=== PATIENT | female | born 1965 | race Caucasian/White ===

== ENCOUNTER 2017-07-18 17:53 | Inpatient (IN) | payer BC ==
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
[2017-07-18] MEDS ORDERED: Sodium Chloride 0.9% 1,000 ML IV SCH ×2 (21:30→22:45)
[2017-07-18] MEDS ORDERED: Coagulation Factor VIIa Recombinant (per MCG) 2 MG Vial IVPUSH ONE ×3 (21:54→23:15)
[2017-07-18] MEDS ORDERED: oxyCODONE 5 MG Tab PO SCH (23:00)
[2017-07-18] MEDS ORDERED: Albuterol 90 MCG/6.7 GM Inhaler INH PRN (23:00)
[2017-07-19] MEDS: Sodium Chloride 0.9% 1,000 ML IV SCH ×2 (02:36→07:34)
[2017-07-19] MEDS ORDERED: traMADol 50 MG Tab PO PRN (07:57)
[2017-07-19] MEDS: Dextrose 5%-Lactated Ringers 1,000 ML IV SCH ×3 (09:59→22:52)
[2017-07-19] MEDS ORDERED: Lactated Ringers 1,000 ML IV SCH (11:00)
[2017-07-19] MEDS ORDERED: fentaNYL 12 MCG/HR Transdermal Patch TRDERM SCH (16:00)
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
[2017-07-19] MEDS: FENTANYL PATCH CHECK TOP SCH (21:27)
[2017-07-20] MEDS: oxyCODONE 5 MG Tab PO PRN ×4 (02:26→22:07)
[2017-07-20] MEDS: Dextrose 5%-Lactated Ringers 1,000 ML IV SCH (08:53)
[2017-07-20] MEDS: FENTANYL PATCH CHECK TOP SCH ×2 (08:58→20:06)
--- NOTE | 2017-07-20 09:33 | PCM.CONSN ---
- General Info Date of Service: 07/20/17 Functional Status: Reports: Pain Controlled, Tolerating Diet, Ambulating - Review of Systems General: Reports: Weakness. Denies: Fever, Chills Pulmonary: Reports: No Symptoms Cardiovascular: Reports: No Symptoms Gastrointestinal: Reports: No Symptoms Systems Review Comment:: Stable over the past 24 hours with no further evidence of active bleeding. She' s not had hematochezia since early yesterday afternoon. Hemoglobin has remained stable following transfusion of one unit of red blood cells yesterday. Vital signs are stable and she has remained afebrile. - Patient Data Vitals - Most Recent: Last Vital Signs Temp 98.1 F 07/20/17 09:19 Pulse 102 H 07/20/17 09:19 Resp 16 07/20/17 09:19 BP 97/54 L 07/20/17 09:19 Pulse Ox 94 L 07/20/17 09:19 Weight - Most Recent: 207 lb 7.28 oz I&O - Last 24 Hours: Intake & Output 07/19/17 07/20/17 07/20/17 22:59 06:59 14:59 Intake Total 1810 1223 0 Output Total 350 Balance 1460 1223 0 Lab Results Last 24 Hours: Laboratory Results - last 24 hr 07/18/17 07/19/17 07/19/17 Range/Units 22:40 11:05 11:05 WBC 8.3 (4.5-11.0) K/uL RBC 2.77 L (3.30-5.50) M/uL Hgb 8.4 L (12.0-15.0) g/dL Hct 26.9 L (36.0-48.0) % MCV 97 (80-98) fL MCH 30 (27-31) pg MCHC 31 L (32-36) % Plt Count 424 H (150-400) K/uL Neut % (Auto) 63 (36-66) % Lymph % (Auto) 23 L (24-44) % [place] % (Auto) 10 H (2-6) % Eos % (Auto) 1 L (2-4) % Baso % (Auto) 3 H (0-1) % Sodium 143 (140-148) mmol/L Potassium 3.7 (3.6-5.2) mmol/L Chloride 109 H (100-108) mmol/L Carbon Dioxide 24 (21-32) mmol/L Anion Gap 13.7 (5.0-14.0) mmol/L BUN 9 (7-18) mg/dL Creatinine 0.8 (0.6-1.0) mg/dL Est Cr Clr Drug Dosing 77.01 mL/min Estimated GFR (MDRD) > 60 (>60) Glucose 117 H (74-106) mg/dL Calcium 8.0 L (8.5-10.1) mg/dL Phosphorus (2.5-4.9) mg/dL Magnesium (1.8-2.4) mg/dL Total Bilirubin 0.4 (0.2-1.0) mg/dL AST 44 H (15-37) U/L ALT 33 (12-78) U/L Alkaline Phosphatase 361 H (46-116) U/L Total Protein 5.6 L (6.4-8.2) g/dL Albumin 2.3 L (3.4-5.0) g/dL Globulin 3.3 (2.3-3.5) g/dL Albumin/Globulin Ratio 0.7 L (1.2-2.2) Blood Type O POSITIVE Gel Antibody Screen Negative Crossmatch See Detail 07/19/17 07/19/17 07/19/17 Range/Units 11:05 16:27 23:00 WBC (4.5-11.0) K/uL RBC (3.30-5.50) M/uL Hgb 8.9 L 8.9 L (12.0-15.0) g/dL Hct 28.8 L (36.0-48.0) % MCV (80-98) fL MCH (27-31) pg MCHC (32-36) % Plt Count (150-400) K/uL Neut % (Auto) (36-66) % Lymph % (Auto) (24-44) % [place] % (Auto) (2-6) % Eos % (Auto) (2-4) % Baso % (Auto) (0-1) % Sodium (140-148) mmol/L Potassium (3.6-5.2) mmol/L Chloride (100-108) mmol/L Carbon Dioxide (21-32) mmol/L Anion Gap (5.0-14.0) mmol/L BUN (7-18) mg/dL Creatinine (0.6-1.0) mg/dL Est Cr Clr Drug Dosing mL/min Estimated GFR (MDRD) (>60) Glucose (74-106) mg/dL Calcium (8.5-10.1) mg/dL Phosphorus (2.5-4.9) mg/dL Magnesium 2.0 (1.8-2.4) mg/dL Total Bilirubin (0.2-1.0) mg/dL AST (15-37) U/L ALT (12-78) U/L Alkaline Phosphatase (46-116) U/L Total Protein (6.4-8.2) g/dL Albumin (3.4-5.0) g/dL Globulin (2.3-3.5) g/dL Albumin/Globulin Ratio (1.2-2.2) Blood Type Gel Antibody Screen Crossmatch 07/20/17 07/20/17 Range/Units 04:50 04:50 WBC 8.0 (4.5-11.0) K/uL RBC 2.91 L (3.30-5.50) M/uL Hgb 8.8 L (12.0-15.0) g/dL Hct 27.8 L (36.0-48.0) % MCV 96 (80-98) fL MCH 30 (27-31) pg MCHC 32 (32-36) % Plt Count 330 (150-400) K/uL Neut % (Auto) 59 (36-66) % Lymph % (Auto) 22 L (24-44) % [place] % (Auto) 13 H (2-6) % Eos % (Auto) 3 (2-4) % Baso % (Auto) 2 H (0-1) % Sodium 142 (140-148) mmol/L Potassium 3.7 (3.6-5.2) mmol/L Chloride 110 H (100-108) mmol/L Carbon Dioxide 27 (21-32) mmol/L Anion Gap 8.7 (5.0-14.0) mmol/L BUN 5 L (7-18) mg/dL Creatinine 0.8 (0.6-1.0) mg/dL Est Cr Clr Drug Dosing 77.43 mL/min Estimated GFR (MDRD) > 60 (>60) Glucose 110 H (74-106) mg/dL Calcium 8.1 L (8.5-10.1) mg/dL Phosphorus 3.7 (2.5-4.9) mg/dL Magnesium 1.8 (1.8-2.4) mg/dL Total Bilirubin 0.4 (0.2-1.0) mg/dL AST 54 H (15-37) U/L ALT 23 (12-78) U/L Alkaline Phosphatase 344 H (46-116) U/L Total Protein 5.5 L (6.4-8.2) g/dL Albumin 2.3 L (3.4-5.0) g/dL Globulin 3.2 (2.3-3.5) g/dL Albumin/Globulin Ratio 0.7 L (1.2-2.2) Blood Type Gel Antibody Screen Crossmatch Med Orders - Current: Current Medications Albuterol (Proventil Hfa) 0 puff INH Q4H PRN PRN Reason: SOB/WHEEZING Fentanyl (Duragesic) 12 mcg TRDERM Q72H [facility] Last Admin: 07/19/17 15:56 Dose: 12 mcg Hydromorphone HCl (Dilaudid) 0.5 mg IVPUSH Q2H PRN PRN Reason: Pain Fentanyl Patch Check 1 each TOP BID [facility] Last Admin: 07/20/17 08:58 Dose: Not Given Oxycodone HCl (Oxycodone) 10 mg PO Q6H PRN PRN Reason: Abdominal Pain Last Admin: 07/20/17 09:16 Dose: 10 mg Tramadol HCl (Ultram) 50 mg PO Q6H PRN PRN Reason: PAIN Last Admin: 07/19/17 15:49 Dose: 50 mg Discontinued Medications Factor VIIa (Recombinant) (Novoseven Rt) 2,000 mcg IVPUSH ONETIME ONE Stop: 07/18/17 21:55 Last Admin: 07/18/17 22:16 Dose: 1 mcg Factor VIIa (Recombinant) (Novoseven Rt) Confirm Administered Dose 2,000 mcg IVPUSH .STK-MED ONE Stop: 07/18/17 22:24 Factor VIIa (Recombinant) (Novoseven Rt) 2,000 mcg IVPUSH ONETIME ONE Stop: 07/18/17 23:16 Last Admin: 07/18/17 22:55 Dose: 2,000 mcg Sodium Chloride (Normal Saline) 1,000 mls @ 200 mls/hr IV ASDIRECTED ANGELLA Last Admin: 07/18/17 21:48 Dose: 200 mls/hr Sodium Chloride (Normal Saline) 1,000 mls @ 200 mls/hr IV ASDIRECTED ANGELLA Last Admin: 07/19/17 07:34 Dose: 200 mls/hr Dextrose/Lactated Ringer's (Dextrose 5%-Lactated Ringers) 1,000 mls @ 100 mls/ hr IV ASDIRECTED ANGELLA Last Admin: 07/20/17 08:53 Dose: 100 mls/hr Lactated Ringer's (Ringers, Lactated) 1,000 mls @ 500 mls/hr IV ASDIRECTED ANGELLA Stop: 07/19/17 13:01 Last Admin: 07/19/17 11:00 Dose: 500 mls/hr Oxycodone HCl (Oxycodone) 10 mg PO Q6H [facility] Last Admin: 07/18/17 23:24 Dose: Not Given - Exam General: Alert, Oriented, Cooperative, No Acute Distress Lungs: Clear to Auscultation, Normal Respiratory Effort Cardiovascular: Regular Rate, Regular Rhythm, No Murmurs GI/Abdominal Exam: Normal Bowel Sounds, Soft, Non-Tender, No Organomegaly, No Distention Extremities: Normal Inspection, Non-Tender, No Pedal Edema Consult PN Assessment/Plan Procedures: Procedures ASSAY THYROID STIM HORMONE (06/28/17) CT ABD & PELV W/CONTRAST (06/20/17) CT THORAX W/DYE (06/20/17) EMERGENCY DEPT VISIT (09/13/16) FREE ASSAY (FT-3) (06/28/17) ROUTINE VENIPUNCTURE (06/28/17) US EXAM ABDOM COMPLETE (06/15/17) Problem List Initiated/Reviewed/Updated: Yes My Orders Last 24 Hours: My Active Orders 07/19/17 15:39 HYDROmorphone [Dilaudid] 0.5 mg IVPUSH Q2H PRN 07/19/17 16:00 fentaNYL [Duragesic] 12 mcg TRDERM Q72H 07/19/17 21:00 Non-Formulary Medication [NF Drug] 1 each TOP BID 07/20/17 09:30 Convert IV to Saline Lock [OM.PC] Routine Plan: ASSESSMENT AND RECOMMENDATIONS ACUTE LOWER GI BLEED-likely secondary to area of polyp removal in the right colon. No further bleeding since yesterday afternoon -Serial hemoglobin levels -2 units of red blood cells on hold -Saline lock IV -Surgical follow-up per Dr. Colby WIDELY METASTATIC NEUROENDOCRINE TUMOR-in the process of evaluation, she currently has an appointment at the [facility] in [place] for mid-July. -Contact [facility] to see if she can be seen sooner than current appointment
--- NOTE | 2017-07-20 13:30 | PCM.SURGPN ---
- General Info Date of Service: 07/20/17 POD#: 0 Admission Diagnosis/Problem: Bleeding (Bloody diarrhea ) Functional Status: Reports: Tolerating Diet, Ambulating, Urinating - Review of Systems General: Reports: Fatigue HEENT: Reports: No Symptoms Pulmonary: Reports: No Symptoms Cardiovascular: Reports: No Symptoms Gastrointestinal: Reports: No Symptoms Genitourinary: Reports: No Symptoms Musculoskeletal: Reports: No Symptoms Skin: Reports: No Symptoms Neurological: Reports: No Symptoms Psychiatric: Reports: No Symptoms Systems Review Comment:: Nettie is feeling better today. She has not had any hematochezia since yesterday. She has not had a BM today. Urinating well. Per nursing she is a little lethargic today. Her hemoglobin has been stable since yesterday, however she will receive 1 unit of red blood cells today due to multiple upcoming blood tests for oncology. Per nursing she tolerated this well. - Patient Data Vitals - Most Recent: Last Vital Signs Temp 36.7 C 07/20/17 12:00 Pulse 103 H 07/20/17 12:00 Resp 16 07/20/17 12:00 BP 108/60 07/20/17 12:00 Pulse Ox 94 L 07/20/17 12:00 Weight - Most Recent: 94.1 kg I&O - Last 24 Hours: Intake & Output 07/19/17 07/20/17 07/20/17 22:59 06:59 14:59 Intake Total 1810 1223 0 Output Total 350 Balance 1460 1223 0 Lab Results Last 24 Hrs: Laboratory Results - last 24 hr 07/18/17 07/19/17 07/19/17 Range/Units 22:40 16:27 23:00 WBC (4.5-11.0) K/uL RBC (3.30-5.50) M/uL Hgb 8.9 L 8.9 L (12.0-15.0) g/dL Hct 28.8 L (36.0-48.0) % MCV (80-98) fL MCH (27-31) pg MCHC (32-36) % Plt Count (150-400) K/uL Neut % (Auto) (36-66) % Lymph % (Auto) (24-44) % [place] % (Auto) (2-6) % Eos % (Auto) (2-4) % Baso % (Auto) (0-1) % Sodium (140-148) mmol/L Potassium (3.6-5.2) mmol/L Chloride (100-108) mmol/L Carbon Dioxide (21-32) mmol/L Anion Gap (5.0-14.0) mmol/L BUN (7-18) mg/dL Creatinine (0.6-1.0) mg/dL Est Cr Clr Drug Dosing mL/min Estimated GFR (MDRD) (>60) Glucose (74-106) mg/dL Calcium (8.5-10.1) mg/dL Phosphorus (2.5-4.9) mg/dL Magnesium (1.8-2.4) mg/dL Total Bilirubin (0.2-1.0) mg/dL AST (15-37) U/L ALT (12-78) U/L Alkaline Phosphatase (46-116) U/L Total Protein (6.4-8.2) g/dL Albumin (3.4-5.0) g/dL Globulin (2.3-3.5) g/dL Albumin/Globulin Ratio (1.2-2.2) Blood Type O POSITIVE Gel Antibody Screen Negative Crossmatch See Detail 07/20/17 07/20/17 Range/Units 04:50 04:50 WBC 8.0 (4.5-11.0) K/uL RBC 2.91 L (3.30-5.50) M/uL Hgb 8.8 L (12.0-15.0) g/dL Hct 27.8 L (36.0-48.0) % MCV 96 (80-98) fL MCH 30 (27-31) pg MCHC 32 (32-36) % Plt Count 330 (150-400) K/uL Neut % (Auto) 59 (36-66) % Lymph % (Auto) 22 L (24-44) % [place] % (Auto) 13 H (2-6) % Eos % (Auto) 3 (2-4) % Baso % (Auto) 2 H (0-1) % Sodium 142 (140-148) mmol/L Potassium 3.7 (3.6-5.2) mmol/L Chloride 110 H (100-108) mmol/L Carbon Dioxide 27 (21-32) mmol/L Anion Gap 8.7 (5.0-14.0) mmol/L BUN 5 L (7-18) mg/dL Creatinine 0.8 (0.6-1.0) mg/dL Est Cr Clr Drug Dosing 77.43 mL/min Estimated GFR (MDRD) > 60 (>60) Glucose 110 H (74-106) mg/dL Calcium 8.1 L (8.5-10.1) mg/dL Phosphorus 3.7 (2.5-4.9) mg/dL Magnesium 1.8 (1.8-2.4) mg/dL Total Bilirubin 0.4 (0.2-1.0) mg/dL AST 54 H (15-37) U/L ALT 23 (12-78) U/L Alkaline Phosphatase 344 H (46-116) U/L Total Protein 5.5 L (6.4-8.2) g/dL Albumin 2.3 L (3.4-5.0) g/dL Globulin 3.2 (2.3-3.5) g/dL Albumin/Globulin Ratio 0.7 L (1.2-2.2) Blood Type Gel Antibody Screen Crossmatch Med Orders - Current: Current Medications Albuterol (Proventil Hfa) 0 puff INH Q4H PRN PRN Reason: SOB/WHEEZING Fentanyl (Duragesic) 12 mcg TRDERM Q72H [facility] Last Admin: 07/19/17 15:56 Dose: 12 mcg Hydromorphone HCl (Dilaudid) 0.5 mg IVPUSH Q2H PRN PRN Reason: Pain Fentanyl Patch Check 1 each TOP BID [facility] Last Admin: 07/20/17 08:58 Dose: Not Given Oxycodone HCl (Oxycodone) 10 mg PO Q6H PRN PRN Reason: Abdominal Pain Last Admin: 07/20/17 09:16 Dose: 10 mg Tramadol HCl (Ultram) 50 mg PO Q6H PRN PRN Reason: PAIN Last Admin: 07/19/17 15:49 Dose: 50 mg Discontinued Medications Factor VIIa (Recombinant) (Novoseven Rt) 2,000 mcg IVPUSH ONETIME ONE Stop: 07/18/17 21:55 Last Admin: 07/18/17 22:16 Dose: 1 mcg Factor VIIa (Recombinant) (Novoseven Rt) Confirm Administered Dose 2,000 mcg IVPUSH .STK-MED ONE Stop: 07/18/17 22:24 Factor VIIa (Recombinant) (Novoseven Rt) 2,000 mcg IVPUSH ONETIME ONE Stop: 07/18/17 23:16 Last Admin: 07/18/17 22:55 Dose: 2,000 mcg Sodium Chloride (Normal Saline) 1,000 mls @ 200 mls/hr IV ASDIRECTED [facility] Last Admin: 07/18/17 21:48 Dose: 200 mls/hr Sodium Chloride (Normal Saline) 1,000 mls @ 200 mls/hr IV ASDIRECTED [facility] Last Admin: 07/19/17 07:34 Dose: 200 mls/hr Dextrose/Lactated Ringer's (Dextrose 5%-Lactated Ringers) 1,000 mls @ 100 mls/ hr IV ASDIRECTED [facility] Last Admin: 07/20/17 08:53 Dose: 100 mls/hr Lactated Ringer's (Ringers, Lactated) 1,000 mls @ 500 mls/hr IV ASDIRECTED [facility] Stop: 07/19/17 13:01 Last Admin: 07/19/17 11:00 Dose: 500 mls/hr Oxycodone HCl (Oxycodone) 10 mg PO Q6H [facility] Last Admin: 07/18/17 23:24 Dose: Not Given - Exam General: Alert, Oriented, No Acute Distress, Lethargic Neck: Supple GI/Abdominal Exam: No Distention Extremities: Normal Inspection Psy/Mental Status: Alert - Problem List Review Problem List Initiated/Reviewed/Updated: Yes - My Orders Last 24 Hours: Active Orders 24 hr Category Date Time Status Low Residue [Low Fiber Diet] [DIET] Diet 07/20/17 Breakfast Active CBC W/O DIFF,HEMOGRAM [HEME] Routine Lab 07/21/17 05:00 Ordered COMPREHENSIVE METABOLIC PN,CMP [CHEM] Routine Lab 07/21/17 05:00 Ordered HCT [HEMATOCRIT] [HEME] Routine Lab 07/20/17 17:00 Ordered HEMOGLOBIN [HEME] Routine Lab 07/20/17 17:00 Ordered MAGNESIUM [CHEM] Routine Lab 07/21/17 05:00 Ordered PHOSPHORUS [CHEM] Routine Lab 07/21/17 05:00 Ordered HYDROmorphone [Dilaudid] Med 07/19/17 15:39 Active 0.5 mg IVPUSH Q2H PRN Non-Formulary Medication [NF Drug] Med 07/19/17 21:00 Active 1 each TOP BID fentaNYL [Duragesic] Med 07/19/17 16:00 Active 12 mcg TRDERM Q72H Convert IV to Saline Lock [OM.PC] Routine Oth 07/20/17 09:30 Ordered Transfuse Red Blood Cells [COMM] Routine Oth 07/20/17 08:00 Ordered Medication Orders Albuterol (Proventil Hfa) 0 puff INH Q4H PRN PRN Reason: SOB/WHEEZING Fentanyl (Duragesic) 12 mcg TRDERM Q72H [facility] Last Admin: 07/19/17 15:56 Dose: 12 mcg Hydromorphone HCl (Dilaudid) 0.5 mg IVPUSH Q2H PRN PRN Reason: Pain Fentanyl Patch Check 1 each TOP BID [facility] Last Admin: 07/20/17 08:58 Dose: Not Given Admin: 07/19/17 21:27 Dose: Oxycodone HCl (Oxycodone) 10 mg PO Q6H PRN PRN Reason: Abdominal Pain Last Admin: 07/20/17 09:16 Dose: 10 mg Admin: 07/20/17 02:26 Dose: 10 mg Tramadol HCl (Ultram) 50 mg PO Q6H PRN PRN Reason: PAIN Last Admin: 07/19/17 15:49 Dose: 50 mg - Assessment Assessment (Free Text/Narrative):: Acute Lower GI Bleed. Likely secondary to polyp removal in the right colon. She is no long experiencing bleeding. - Plan Plan (Free Text/Narrative):: 1. Advance diet to low residue diet. 2. Hgb/Hct labs at 5 pm. 3. CBC, CMP, Mg and Phos labs in am. 4. Transfuse 1 unit PRBC this am.
[2017-07-20] MEDS ORDERED: Acetaminophen 325 MG Tab PO PRN (13:56)
[2017-07-21] MEDS: oxyCODONE 5 MG Tab PO PRN ×4 (04:49→23:43)
[2017-07-21] MEDS ORDERED: Ondansetron 4 MG Tab.DIS PO PRN (07:48)
[2017-07-21] MEDS ORDERED: Potassium Chloride 20 MEQ Tab.ER PO ONE ×2 (09:00)
[2017-07-21] MEDS: Sodium Chloride 0.9% 1,000 ML IV SCH ×2 (09:35→17:41)
[2017-07-21] MEDS ORDERED: fentaNYL 12 MCG/HR Transdermal Patch TRDERM SCH (10:30)
[2017-07-21] MEDS: FENTANYL PATCH CHECK TOP SCH ×2 (10:35→20:18)
--- NOTE | 2017-07-21 15:10 | PCM.SURGPN ---
- General Info Date of Service: 07/21/17 POD#: 0 Admission Diagnosis/Problem: Bleeding (Bloody Diarrhea) Functional Status: Reports: Tolerating Diet (Does complain of feeling full, nauseated after some meals ), Urinating - Review of Systems General: Reports: Weakness, Fatigue HEENT: Reports: No Symptoms Pulmonary: Reports: No Symptoms Cardiovascular: Reports: No Symptoms Gastrointestinal: Reports: Decreased Appetite, Nausea Genitourinary: Reports: No Symptoms Musculoskeletal: Reports: No Symptoms Skin: Reports: No Symptoms Neurological: Reports: No Symptoms Psychiatric: Reports: No Symptoms Systems Review Comment:: Nettie states that she continues to feel fatigued. She and her state that this has been going on for the past two weeks. She mentions that she sometimes can only eat a few bites of food without feeling nauseated, sometimes vomits. Has not had any bleeding today. - Patient Data Vitals - Most Recent: Last Vital Signs Temp 37.2 C 07/21/17 12:03 Pulse 100 07/21/17 12:03 Resp 18 07/21/17 12:03 BP 90/59 L 07/21/17 12:03 Pulse Ox 95 07/21/17 12:03 Weight - Most Recent: 94.1 kg I&O - Last 24 Hours: Intake & Output 07/21/17 07/21/17 07/21/17 06:59 14:59 22:59 Intake Total 480 Output Total 1 Balance -1 480 Lab Results Last 24 Hrs: Laboratory Results - last 24 hr 07/20/17 07/21/17 07/21/17 Range/Units 16:48 04:23 04:23 WBC 8.4 (4.5-11.0) K/uL RBC 3.36 (3.30-5.50) M/uL Hgb 9.4 L 10.1 L (12.0-15.0) g/dL Hct 29.9 L 31.6 L (36.0-48.0) % MCV 94 (80-98) fL MCH 30 (27-31) pg MCHC 32 (32-36) % Plt Count 329 (150-400) K/uL Sodium 140 (140-148) mmol/L Potassium 3.4 L (3.6-5.2) mmol/L Chloride 103 (100-108) mmol/L Carbon Dioxide 30 (21-32) mmol/L Anion Gap 10.4 (5.0-14.0) mmol/L BUN 4 L (7-18) mg/dL Creatinine 0.8 (0.6-1.0) mg/dL Est Cr Clr Drug Dosing 77.43 mL/min Estimated GFR (MDRD) > 60 (>60) Glucose 95 (74-106) mg/dL Calcium 8.2 L (8.5-10.1) mg/dL Phosphorus 4.4 (2.5-4.9) mg/dL Magnesium 1.8 (1.8-2.4) mg/dL Total Bilirubin 0.6 (0.2-1.0) mg/dL AST 44 H (15-37) U/L ALT 27 (12-78) U/L Alkaline Phosphatase 353 H (46-116) U/L Total Protein 5.9 L (6.4-8.2) g/dL Albumin 2.4 L (3.4-5.0) g/dL Globulin 3.5 (2.3-3.5) g/dL Albumin/Globulin Ratio 0.7 L (1.2-2.2) Med Orders - Current: Current Medications Albuterol (Proventil Hfa) 0 puff INH Q4H PRN PRN Reason: SOB/WHEEZING Fentanyl (Duragesic) 12 mcg TRDERM Q72H [facility] Last Admin: 07/21/17 10:40 Dose: 12 mcg Hydromorphone HCl (Dilaudid) 0.5 mg IVPUSH Q2H PRN PRN Reason: Pain Sodium Chloride (Normal Saline) 1,000 mls @ 125 mls/hr IV ASDIRECTED [facility] Last Admin: 07/21/17 09:35 Dose: 125 mls/hr Fentanyl Patch Check 1 each TOP BID [facility] Last Admin: 07/21/17 10:35 Dose: Not Given Ondansetron HCl (Zofran Odt) 4 mg PO Q4H PRN PRN Reason: Nausea/Vomiting Oxycodone HCl (Oxycodone) 10 mg PO Q6H PRN PRN Reason: Abdominal Pain Last Admin: 07/21/17 10:23 Dose: 5 mg Tramadol HCl (Ultram) 50 mg PO Q6H PRN PRN Reason: PAIN Last Admin: 07/19/17 15:49 Dose: 50 mg Discontinued Medications Factor VIIa (Recombinant) (Novoseven Rt) 2,000 mcg IVPUSH ONETIME ONE Stop: 07/18/17 21:55 Last Admin: 07/18/17 22:16 Dose: 1 mcg Factor VIIa (Recombinant) (Novoseven Rt) Confirm Administered Dose 2,000 mcg IVPUSH .STK-MED ONE Stop: 07/18/17 22:24 Factor VIIa (Recombinant) (Novoseven Rt) 2,000 mcg IVPUSH ONETIME ONE Stop: 07/18/17 23:16 Last Admin: 07/18/17 22:55 Dose: 2,000 mcg Fentanyl (Duragesic) 12 mcg TRDERM Q72H [facility] Last Admin: 07/19/17 15:56 Dose: 12 mcg Sodium Chloride (Normal Saline) 1,000 mls @ 200 mls/hr IV ASDIRECTED [facility] Last Admin: 07/18/17 21:48 Dose: 200 mls/hr Sodium Chloride (Normal Saline) 1,000 mls @ 200 mls/hr IV ASDIRECTED [facility] Last Admin: 07/19/17 07:34 Dose: 200 mls/hr Dextrose/Lactated Ringer's (Dextrose 5%-Lactated Ringers) 1,000 mls @ 100 mls/ hr IV ASDIRECTED [facility] Last Admin: 07/20/17 08:53 Dose: 100 mls/hr Lactated Ringer's (Ringers, Lactated) 1,000 mls @ 500 mls/hr IV ASDIRECTED [facility] Stop: 07/19/17 13:01 Last Admin: 07/19/17 11:00 Dose: 500 mls/hr Oxycodone HCl (Oxycodone) 10 mg PO Q6H [facility] Last Admin: 07/18/17 23:24 Dose: Not Given Potassium Chloride (Klor-Con M20) 40 meq PO ONETIME ONE Stop: 07/21/17 09:01 Last Admin: 07/21/17 10:35 Dose: 40 meq Potassium Chloride (Klor-Con M20) 40 meq PO ONETIME ONE Stop: 07/21/17 09:01 Last Admin: 07/21/17 13:13 Dose: Not Given - Exam Wound/Incisions: Other (NA) Quality Assessment: DVT Prophylaxis General: Alert, Oriented, No Acute Distress, Lethargic HEENT: Pupils Equal, Pupils Reactive Neck: Supple Lungs: Clear to Auscultation, Normal Respiratory Effort Cardiovascular: Regular Rate, Regular Rhythm, No Murmurs GI/Abdominal Exam: Normal Bowel Sounds, Soft, No Organomegaly Extremities: Normal Inspection Skin: Warm, Dry, Intact Neurological: No New Focal Deficit Psy/Mental Status: Alert, Normal Affect, Normal Mood - Problem List & Annotations (1) Lower gastrointestinal bleeding SNOMED Code(s): 95343286 Code(s): K92.2 - GASTROINTESTINAL HEMORRHAGE, UNSPECIFIED Status: Acute Current Visit: Yes - Problem List Review Problem List Initiated/Reviewed/Updated: Yes - My Orders Last 24 Hours: Active Orders 24 hr Category Date Time Status Vital Signs [RC] Q4H Care 07/21/17 11:03 Active Regular Diet [DIET] Diet 07/21/17 Breakfast Active Ondansetron [Zofran ODT] Med 07/21/17 07:48 Active 4 mg PO Q4H PRN Sodium Chloride 0.9% [Normal Saline] 1,000 ml Med 07/21/17 09:30 Active IV ASDIRECTED fentaNYL [Duragesic] Med 07/21/17 10:30 Active 12 mcg TRDERM Q72H Medication Orders Albuterol (Proventil Hfa) 0 puff INH Q4H PRN PRN Reason: SOB/WHEEZING Fentanyl (Duragesic) 12 mcg TRDERM Q72H [facility] Last Admin: 07/21/17 10:40 Dose: 12 mcg Hydromorphone HCl (Dilaudid) 0.5 mg IVPUSH Q2H PRN PRN Reason: Pain Sodium Chloride (Normal Saline) 1,000 mls @ 125 mls/hr IV ASDIRECTED [facility] Last Admin: 07/21/17 09:35 Dose: 125 mls/hr Fentanyl Patch Check 1 each TOP BID [facility] Last Admin: 07/21/17 10:35 Dose: Admin: 07/20/17 20:06 Dose: Not Given Admin: 07/20/17 08:58 Dose: Not Given Admin: 07/19/17 21:27 Dose: Ondansetron HCl (Zofran Odt) 4 mg PO Q4H PRN PRN Reason: Nausea/Vomiting Oxycodone HCl (Oxycodone) 10 mg PO Q6H PRN PRN Reason: Abdominal Pain Last Admin: 07/21/17 10:23 Dose: 5 mg Admin: 07/21/17 04:49 Dose: 5 mg Admin: 07/20/17 22:07 Dose: 5 mg Admin: 07/20/17 15:24 Dose: 10 mg Admin: 07/20/17 09:16 Dose: 10 mg Admin: 07/20/17 02:26 Dose: 10 mg Tramadol HCl (Ultram) 50 mg PO Q6H PRN PRN Reason: PAIN Last Admin: 07/19/17 15:49 Dose: 50 mg - Assessment Assessment (Free Text/Narrative):: 1. Acute Lower GI Bleed likely secondary to polyp removal in the right colon. She is no longer experiencing bleeding. 2. Hypokalemia 3. Widely metastatic neuroendocrine tumor - following up with [facility]. Hospitalist is working on moving up appointment date. - Plan Plan (Free Text/Narrative):: Advance diet to regular. 40 meq potassium chloride PO for hypokalemia. Zofran 4 mg q 4 hours prn for nausea. DELLA Hernandez-Student
--- NOTE | 2017-07-21 17:04 | PCM.PN ---
- General Info Date of Service: 07/21/17 Functional Status: Reports: Pain Controlled, Urinating. Denies: Tolerating Diet - Review of Systems General: Reports: Weakness. Denies: Fever, Chills Pulmonary: Reports: No Symptoms Cardiovascular: Reports: No Symptoms Gastrointestinal: Reports: Abdominal Pain, Decreased Appetite. Denies: Constipation, Difficulty Swallowing, Nausea, Vomiting Systems Review Comment:: Nettie has remained stable over the past 24 hours with no further evidence of active GI bleed. Hemoglobin has been stable and she's had no further hematochezia. Vital signs have been good and she has remained afebrile. Remains very weak, able to walk only relatively short distance and oral intake has been poor. She remains on IV fluids for hydration. 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 - Patient Data Vitals - Most Recent: Last Vital Signs Temp 99.4 F 07/21/17 15:35 Pulse 114 H 07/21/17 15:35 Resp 16 07/21/17 15:35 BP 115/76 07/21/17 15:35 Pulse Ox 94 L 07/21/17 15:35 Weight - Most Recent: 207 lb 7.28 oz I&O - Last 24 Hours: Intake & Output 07/21/17 07/21/17 07/21/17 06:59 14:59 22:59 Intake Total 480 240 Output Total 1 Balance -1 480 240 Lab Results Last 24 Hours: Laboratory Results - last 24 hr 07/21/17 07/21/17 Range/Units 04:23 04:23 WBC 8.4 (4.5-11.0) K/uL RBC 3.36 (3.30-5.50) M/uL Hgb 10.1 L (12.0-15.0) g/dL Hct 31.6 L (36.0-48.0) % MCV 94 (80-98) fL MCH 30 (27-31) pg MCHC 32 (32-36) % Plt Count 329 (150-400) K/uL Sodium 140 (140-148) mmol/L Potassium 3.4 L (3.6-5.2) mmol/L Chloride 103 (100-108) mmol/L Carbon Dioxide 30 (21-32) mmol/L Anion Gap 10.4 (5.0-14.0) mmol/L BUN 4 L (7-18) mg/dL Creatinine 0.8 (0.6-1.0) mg/dL Est Cr Clr Drug Dosing 77.43 mL/min Estimated GFR (MDRD) > 60 (>60) Glucose 95 (74-106) mg/dL Calcium 8.2 L (8.5-10.1) mg/dL Phosphorus 4.4 (2.5-4.9) mg/dL Magnesium 1.8 (1.8-2.4) mg/dL Total Bilirubin 0.6 (0.2-1.0) mg/dL AST 44 H (15-37) U/L ALT 27 (12-78) U/L Alkaline Phosphatase 353 H (46-116) U/L Total Protein 5.9 L (6.4-8.2) g/dL Albumin 2.4 L (3.4-5.0) g/dL Globulin 3.5 (2.3-3.5) g/dL Albumin/Globulin Ratio 0.7 L (1.2-2.2) Med Orders - Current: Current Medications Albuterol (Proventil Hfa) 0 puff INH Q4H PRN PRN Reason: SOB/WHEEZING Fentanyl (Duragesic) 12 mcg TRDERM Q72H [facility] Last Admin: 07/21/17 10:40 Dose: 12 mcg Hydromorphone HCl (Dilaudid) 0.5 mg IVPUSH Q2H PRN PRN Reason: Pain Sodium Chloride (Normal Saline) 1,000 mls @ 125 mls/hr IV ASDIRECTED [facility] Last Admin: 07/21/17 09:35 Dose: 125 mls/hr Fentanyl Patch Check 1 each TOP BID [facility] Last Admin: 07/21/17 10:35 Dose: Not Given Ondansetron HCl (Zofran Odt) 4 mg PO Q4H PRN PRN Reason: Nausea/Vomiting Oxycodone HCl (Oxycodone) 10 mg PO Q6H PRN PRN Reason: Abdominal Pain Last Admin: 07/21/17 16:11 Dose: 5 mg Tramadol HCl (Ultram) 50 mg PO Q6H PRN PRN Reason: PAIN Last Admin: 07/19/17 15:49 Dose: 50 mg Discontinued Medications Factor VIIa (Recombinant) (Novoseven Rt) 2,000 mcg IVPUSH ONETIME ONE Stop: 07/18/17 21:55 Last Admin: 07/18/17 22:16 Dose: 1 mcg Factor VIIa (Recombinant) (Novoseven Rt) Confirm Administered Dose 2,000 mcg IVPUSH .STK-MED ONE Stop: 07/18/17 22:24 Factor VIIa (Recombinant) (Novoseven Rt) 2,000 mcg IVPUSH ONETIME ONE Stop: 07/18/17 23:16 Last Admin: 07/18/17 22:55 Dose: 2,000 mcg Fentanyl (Duragesic) 12 mcg TRDERM Q72H [facility] Last Admin: 07/19/17 15:56 Dose: 12 mcg Sodium Chloride (Normal Saline) 1,000 mls @ 200 mls/hr IV ASDIRECTED [facility] Last Admin: 07/18/17 21:48 Dose: 200 mls/hr Sodium Chloride (Normal Saline) 1,000 mls @ 200 mls/hr IV ASDIRECTED [facility] Last Admin: 07/19/17 07:34 Dose: 200 mls/hr Dextrose/Lactated Ringer's (Dextrose 5%-Lactated Ringers) 1,000 mls @ 100 mls/ hr IV ASDIRECTED [facility] Last Admin: 07/20/17 08:53 Dose: 100 mls/hr Lactated Ringer's (Ringers, Lactated) 1,000 mls @ 500 mls/hr IV ASDIRECTED [facility] Stop: 07/19/17 13:01 Last Admin: 07/19/17 11:00 Dose: 500 mls/hr Oxycodone HCl (Oxycodone) 10 mg PO Q6H [facility] Last Admin: 07/18/17 23:24 Dose: Not Given Potassium Chloride (Klor-Con M20) 40 meq PO ONETIME ONE Stop: 07/21/17 09:01 Last Admin: 07/21/17 10:35 Dose: 40 meq Potassium Chloride (Klor-Con M20) 40 meq PO ONETIME ONE Stop: 07/21/17 09:01 Last Admin: 07/21/17 13:13 Dose: Not Given - Exam Quality Assessment: DVT Prophylaxis General: Alert, Oriented, Cooperative, Moderate Distress Neck: Supple, Trachea Midline Lungs: Clear to Auscultation, Normal Respiratory Effort Cardiovascular: Regular Rate, Regular Rhythm, No Murmurs GI/Abdominal Exam: Normal Bowel Sounds, Soft, No Distention, Tender. No: Distended, Guarding, Rigid, Rebound Extremities: Non-Tender, No Pedal Edema Skin: Warm, Dry, Intact - Problem List Review Problem List Initiated/Reviewed/Updated: Yes - My Orders Last 24 Hours: My Active Orders 07/21/17 09:30 Sodium Chloride 0.9% [Normal Saline] 1,000 ml IV ASDIRECTED 07/21/17 10:30 fentaNYL [Duragesic] 12 mcg TRDERM Q72H 07/21/17 11:03 Vital Signs [RC] Q4H - Plan Plan:: ASSESSMENT AND RECOMMENDATIONS ACUTE LOWER GI BLEED-likely secondary to area of polyp removal in the right colon. No further bleeding over the past 48 hours, hemoglobin has remained stable. -Repeat hemoglobin pending -Surgical follow-up per Dr. Colby WIDELY METASTATIC NEUROENDOCRINE -reviewed current status with the oncologist on -call at the [facility] in [place],Dr. Lara. They have agreed to accept her in transfer tomorrow for further evaluation and management of her neuroendocrine tumor.
--- NOTE | 2017-07-21 17:20 | PCM.DCSUM1 ---
Discharge Summary - Hospital Course Brief History: Ms. Galan is a 51-year-old woman with a recent diagnosis of widely spread metastatic neuroendocrine tumor. She was admitted to this facility because of a lower GI bleed, secondary to recent polypectomy on colonoscopy. - Discharge Data Discharge Date: 07/22/17 Discharge Disposition: DC/Tfer to Acute Hospital 02 Condition: Serious - Discharge Diagnosis/Problem(s) (1) Anemia due to acute blood loss SNOMED Code(s): 085471432 ICD Code: D62 - ACUTE POSTHEMORRHAGIC ANEMIA Status: Acute Current Visit : Yes (2) Neuroendocrine carcinoma metastatic to multiple sites SNOMED Code(s): 548566536 ICD Code: C7A.8 - OTHER MALIGNANT NEUROENDOCRINE TUMORS; C7B.8 - OTHER SECONDARY NEUROENDOCRINE TUMORS Status: Acute Current Visit: Yes (3) Weakness SNOMED Code(s): 68812097 ICD Code: R53.1 - WEAKNESS Status: Acute Current Visit: Yes (4) Anorexia SNOMED Code(s): 10141110 ICD Code: R63.0 - ANOREXIA Status: Acute Current Visit: Yes (5) Lower gastrointestinal bleeding SNOMED Code(s): 35942489 ICD Code: K92.2 - GASTROINTESTINAL HEMORRHAGE, UNSPECIFIED Status: Acute Current Visit: Yes - Patient Summary/Data Hospital Course: Ms. Peres is a 51-year-old woman with a recent diagnosis of widely the static neuroendocrine tumor. She was seen and evaluated in [facility] earlier this week, hospitalized because of weakness and to facilitate further evaluation of her tumor. During her hospital stay EGD was performed which showed mild gastritis but no other significant abnormalities. Colonoscopy was also performed and showed a small polyp in the right colon that was removed during the procedure. She was discharged home with plans for further evaluation of her metastatic disease including a bronchoscopy with biopsy of a right hilar mass, as well as MRI, and an octreotide study. She had appointment scheduled at the [facility] in [place] in mid-July. She presented to our hospital on the evening after discharge from [facility] in [facility] [place] with acute onset of a lower GI bleed. Shortly after arriving home she developed marked hematochezia and had several bloody bowel movements at home. She was evaluated in the emergency department, initially her hemoglobin was stable. Situation was reviewed with Dr. Colby surgeon on-call who agreed to accept the patient on admission. The following morning her hemoglobin had dropped and she was showing evidence of ongoing bleeding with recurrent bloody stools. I was asked to see her at that time for hospice consult and assistance in medical management. She was given IV fluid boluses because of tachycardia and hypotension as well as transfusion of one unit of red blood cells. Following transfusion her hemoglobin remained stable in the range of 9 and the bleeding tapered off with no further hemodynamic instability. Over the next 2 days her hemoglobin remained stable and she was given one additional unit of red blood cells by Dr. Colby. She has had ongoing difficulty with oral intake since diagnosis of her metastatic disease, during hospital stay for intake was minimal and she was noted to have severe weakness. I reviewed these findings with the oncologist content management consultant at the [facility] in [place], Dr. Lara. He has agreed to accept the patient in transfer to facilitate more rapid evaluation and treatment of her metastatic neuroendocrine tumor. She will be transferred to [facility] in [facility] via [facility] ambulance. 60 minutes of time was spent facilitating transfer and arranging discharge. - Patient Instructions Diet: Usual Diet as Tolerated Activity: As Tolerated Other/Special Instructions: Patient will be transferred via [facility] ambulance to [facility] in [facility] for further evaluation and management of her widely metastatic neuroendocrine tumor. - Discharge Plan Home Medications: Home Meds Albuterol Sulfate 2.5 mg IH Q6H PRN 07/18/17 [History] Albuterol Sulfate [Proair Hfa] 108 mcg INH Q6H PRN 07/18/17 [History] Omeprazole 40 mg PO DAILY 07/18/17 [History] fentaNYL [Fentanyl] 12 patch TOP Q72H 07/18/17 [History] oxyCODONE 10 mg PO Q6H PRN 07/18/17 [History] HYDROmorphone [Dilaudid] 0.5 mg IVPUSH Q2H PRN syringe 07/21/17 [Rx] Ondansetron [Zofran ODT] 4 mg PO Q4H PRN tab.dis 07/21/17 [Rx] Sodium Chloride 0.9% [Normal Saline] 125 ml IV ASDIRECTED bag 07/21/17 [Rx] Forms: ED Department Discharge Referrals: PCP,None [Primary Care Provider] - - Discharge Summary/Plan Comment DC Time >30 min.: Yes - Patient Data Vitals - Most Recent: Last Vital Signs Temp 99.4 F 09/22/17 15:35 Pulse 114 H 07/21/17 15:35 Resp 16 07/21/17 15:35 BP 115/76 07/21/17 15:35 Pulse Ox 94 L 07/21/17 15:35 Weight - Most Recent: 207 lb 7.28 oz I&O - Last 24 hours: Intake & Output 07/21/17 07/21/17 07/21/17 06:59 14:59 22:59 Intake Total 480 240 Output Total 1 Balance -1 480 240 Lab Results - Last 24 hrs: Laboratory Results - last 24 hr 07/21/17 07/21/17 Range/Units 04:23 04:23 WBC 8.4 (4.5-11.0) K/uL RBC 3.36 (3.30-5.50) M/uL Hgb 10.1 L (12.0-15.0) g/dL Hct 31.6 L (36.0-48.0) % MCV 94 (80-98) fL MCH 30 (27-31) pg MCHC 32 (32-36) % Plt Count 329 (150-400) K/uL Sodium 140 (140-148) mmol/L Potassium 3.4 L (3.6-5.2) mmol/L Chloride 103 (100-108) mmol/L Carbon Dioxide 30 (21-32) mmol/L Anion Gap 10.4 (5.0-14.0) mmol/L BUN 4 L (7-18) mg/dL Creatinine 0.8 (0.6-1.0) mg/dL Est Cr Clr Drug Dosing 77.43 mL/min Estimated GFR (MDRD) > 60 (>60) Glucose 95 (74-106) mg/dL Calcium 8.2 L (8.5-10.1) mg/dL Phosphorus 4.4 (2.5-4.9) mg/dL Magnesium 1.8 (1.8-2.4) mg/dL Total Bilirubin 0.6 (0.2-1.0) mg/dL AST 44 H (15-37) U/L ALT 27 (12-78) U/L Alkaline Phosphatase 353 H (46-116) U/L Total Protein 5.9 L (6.4-8.2) g/dL Albumin 2.4 L (3.4-5.0) g/dL Globulin 3.5 (2.3-3.5) g/dL Albumin/Globulin Ratio 0.7 L (1.2-2.2) Med Orders - Current: Current Medications Albuterol (Proventil Hfa) 0 puff INH Q4H PRN PRN Reason: SOB/WHEEZING Fentanyl (Duragesic) 12 mcg TRDERM Q72H [facility] Last Admin: 07/21/17 10:40 Dose: 12 mcg Hydromorphone HCl (Dilaudid) 0.5 mg IVPUSH Q2H PRN PRN Reason: Pain Sodium Chloride (Normal Saline) 1,000 mls @ 125 mls/hr IV ASDIRECTED [facility] Last Admin: 07/21/17 09:35 Dose: 125 mls/hr Fentanyl Patch Check 1 each TOP BID [facility] Last Admin: 07/21/17 10:35 Dose: Not Given Ondansetron HCl (Zofran Odt) 4 mg PO Q4H PRN PRN Reason: Nausea/Vomiting Oxycodone HCl (Oxycodone) 10 mg PO Q6H PRN PRN Reason: Abdominal Pain Last Admin: 07/21/17 16:11 Dose: 5 mg Tramadol HCl (Ultram) 50 mg PO Q6H PRN PRN Reason: PAIN Last Admin: 07/19/17 15:49 Dose: 50 mg Discontinued Medications Factor VIIa (Recombinant) (Novoseven Rt) 2,000 mcg IVPUSH ONETIME ONE Stop: 07/18/17 21:55 Last Admin: 07/18/17 22:16 Dose: 1 mcg Factor VIIa (Recombinant) (Novoseven Rt) Confirm Administered Dose 2,000 mcg IVPUSH .STK-MED ONE Stop: 07/18/17 22:24 Factor VIIa (Recombinant) (Novoseven Rt) 2,000 mcg IVPUSH ONETIME ONE Stop: 07/18/17 23:16 Last Admin: 07/18/17 22:55 Dose: 2,000 mcg Fentanyl (Duragesic) 12 mcg TRDERM Q72H [facility] Last Admin: 07/19/17 15:56 Dose: 12 mcg Sodium Chloride (Normal Saline) 1,000 mls @ 200 mls/hr IV ASDIRECTED [facility] Last Admin: 07/18/17 21:48 Dose: 200 mls/hr Sodium Chloride (Normal Saline) 1,000 mls @ 200 mls/hr IV ASDIRECTED [facility] Last Admin: 07/19/17 07:34 Dose: 200 mls/hr Dextrose/Lactated Ringer's (Dextrose 5%-Lactated Ringers) 1,000 mls @ 100 mls/ hr IV ASDIRECTED [facility] Last Admin: 07/20/17 08:53 Dose: 100 mls/hr Lactated Ringer's (Ringers, Lactated) 1,000 mls @ 500 mls/hr IV ASDIRECTED [facility] Stop: 07/19/17 13:01 Last Admin: 07/19/17 11:00 Dose: 500 mls/hr Oxycodone HCl (Oxycodone) 10 mg PO Q6H [facility] Last Admin: 07/18/17 23:24 Dose: Not Given Potassium Chloride (Klor-Con M20) 40 meq PO ONETIME ONE Stop: 07/21/17 09:01 Last Admin: 07/21/17 10:35 Dose: 40 meq Potassium Chloride (Klor-Con M20) 40 meq PO ONETIME ONE Stop: 07/21/17 09:01 Last Admin: 07/21/17 13:13 Dose: Not Given *Q Meaningful Use (DIS) - VTE *Q VTE Criteria *Q: - Stroke *Q Stroke Criteria *Q: - AMI *Q AMI Criteria *Q:
[2017-07-21] MEDS: HYDROmorphone 0.5 MG/0.5 ML Syringe IVPUSH PRN (20:19)
[2017-07-22] MEDS: Sodium Chloride 0.9% 1,000 ML IV SCH (01:43)
[2017-07-22] MEDS: oxyCODONE 5 MG Tab PO PRN (05:30)
[2017-07-22 07:13] VITALS: BP 102/78
[2017-07-22] MEDS: HYDROmorphone 0.5 MG/0.5 ML Syringe IVPUSH PRN (07:40)
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
--- NOTE | 2017-07-24 11:27 | PN ---
DATE OF SERVICE: 07/20/2017 The patient has been clinically stable. Hemoglobin remained around 8.8 with no further evidence of bleeding overnight. I think with the patient having quite a bit in the way of upcoming blood draws and testing, we will give her 1 unit of packed RBCs today and resume diet. She can probably be discharged home tomorrow if everything remains stable. Adama Colby MD /[id number]
== END 2017-07-22 07:50 | DRG 253 ==
LOC: JP.ED 17:53 → JP.ICU 22:00 → JP.MS 07-20 15:15
PROVIDERS: ADMIT Surgery; ATTEND Surgery
PROC: 30233N1 Transfusion of Nonautologous Red Blood Cells into Peripheral Vein, Percutaneous Approach (ICD-10-PCS; principal; 2017-07-19)
PROC: 30233N1 Transfusion of Nonautologous Red Blood Cells into Peripheral Vein, Percutaneous Approach (ICD-10-PCS; 2017-07-20)
DX: K92.2 Gastrointestinal hemorrhage, unspecified (principal); D62 Acute posthemorrhagic anemia; C7A.8 Other malignant neuroendocrine tumors; C7B.8 Other secondary neuroendocrine tumors; R63.0 Anorexia; R53.1 Weakness; M54.9 Dorsalgia, unspecified; G89.29 Other chronic pain; E87.6 Hypokalemia; Z88.1 Allergy status to other antibiotic agents
CPT/HCPCS: 36415; 36430; 74176; 80053; 83735; 84100; 85014; 85018; 85025; 85027; 86850; 86900; 86901; 86920; 86922; 96361; 96374; 99285-25; A9270-GY; J1170; J7040; J7042; J7120; J7189; P9016

== ENCOUNTER 2017-08-28 10:59 | Emergency (ER) | payer BC ==
[2017-08-28] MEDS ORDERED: Coagulation Factor VIIa Recombinant (per MCG) 2 MG Vial IVPUSH ONE (11:34)
--- NOTE | 2017-08-28 11:39 | EDM.PDOC ---
ED HPI GENERAL MEDICAL PROBLEM - General Chief Complaint: ENT Problem Stated Complaint: NOSEBLEED Time Seen by Provider: 08/28/17 11:10 Source of Information: Reports: Patient, Family History Limitations: Reports: No Limitations - History of Present Illness INITIAL COMMENTS - FREE TEXT/NARRATIVE: 52-year-old female with known metastatic neuroendocrine tumor to the liver, chest and bones is awaiting test results from [facility] to establish a care plan. She is still full code. She was hospitalized 1 month ago for persistent colonic bleeding after a biopsy during a colonoscopy. Last night she developed a nosebleed around 11 PM, later developed emesis with blood in this morning started passing blood in her stool. She has no pain or shortness of breath. She is mildly tachycardic. Blood pressure stable. Onset: Sudden (Bleeding from her nose started last night) Severity: Moderate Associated Symptoms: Reports: Malaise, Weakness. Denies: Confusion, Chest Pain , Cough - Related Data Allergies Allergy/AdvReac Type Severity Reaction Status Date / Time cephalexin Allergy Swollen Verified 08/28/17 11:32 Tongue Home Meds: Home Meds Albuterol Sulfate 2.5 mg IH Q6H PRN 07/18/17 [History] Albuterol Sulfate [Proair Hfa] 108 mcg INH Q6H PRN 07/18/17 [History] Omeprazole 40 mg PO DAILY 07/18/17 [History] fentaNYL [Fentanyl] 12 patch TOP Q72H 07/18/17 [History] oxyCODONE 10 mg PO Q6H PRN 07/18/17 [History] HYDROmorphone [Dilaudid] 0.5 mg IVPUSH Q2H PRN syringe 07/21/17 [Rx] Ondansetron [Zofran ODT] 4 mg PO Q4H PRN tab.dis 07/21/17 [Rx] Sodium Chloride 0.9% [Normal Saline] 125 ml IV ASDIRECTED bag 07/21/17 [Rx] Past Medical History - Past Health History Medical/Surgical History: Denies Medical/Surgical History Respiratory History: Reports: Other (See Below) Other Respiratory History: currently being worked up for right lung mass Gastrointestinal History: Reports: Other (See Below) Other Gastrointestinal History: fluid around pancreas [employer]PARTMENT [employer] History: Reports: Musculoskeletal History: Reports: Back Pain, Chronic, Fracture Endocrine/Metabolic History: Reports: Obesity/BMI 30+ Oncologic (Cancer) History: Reports: Liver - Infectious Disease History Infectious Disease History: Reports: Chicken Pox - Past Surgical History GI Surgical History: Reports: Colonoscopy, Polypectomy, Other (See Below) Other GI Surgeries/Procedures: Liver biopsy positive for cancer Female Surgical History: Reports: Tubal Ligation Musculoskeletal Surgical History: Reports: ORIF Social & Family History - Family History Family Medical History: Noncontributory - Tobacco Use Smoking Status *Q: Never Smoker Second Hand Smoke Exposure: No - Caffeine Use Caffeine Use: Reports: Coffee - Alcohol Use Days Per Week of Alcohol Use: 0 - Recreational Drug Use Recreational Drug Use: No ED ROS GENERAL - Review of Systems Review Of Systems: See Below Constitutional: Reports: Malaise, Weakness. Denies: Fever, Chills HEENT: Reports: Other (Persistent left epistaxis) Respiratory: Denies: Shortness of Breath Cardiovascular: Denies: Chest Pain, Palpitations Endocrine: Reports: Fatigue GI/Abdominal: Reports: Vomiting (Bloody emesis). Denies: Abdominal Pain Skin: Reports: Pallor Neurological: Denies: Dizziness, Headache Psychiatric: Reports: No Symptoms ED EXAM, GENERAL - Physical Exam Exam: See Below Exam Limited By: No Limitations General Appearance: Alert, No Apparent Distress Eye Exam: Bilateral Eye: Normal Inspection (Good hydration, no jaundice), PERRL Nose: Other (Left nares is packed with Kleenex, appears to still have some active bleeding) Throat/Mouth: Other (Posterior pharynx shows active bleeding from the nasopharynx) Respiratory/Chest: No Respiratory Distress Cardiovascular: Regular Rate, Rhythm, Tachycardia GI/Abdominal: Soft, Non-Tender Extremities: Normal Inspection Neurological: Alert, Oriented Course - Vital Signs Last Recorded V/S: Last Vital Signs Temp 98.4 F 08/28/17 11:05 Pulse 105 H 08/28/17 13:05 Resp 17 08/28/17 13:05 BP 115/67 08/28/17 13:05 Pulse Ox 98 08/28/17 13:05 - Orders/Labs/Meds Labs: Laboratory Tests 08/28/17 08/28/17 08/28/17 Range/Units 11:38 11:38 11:38 WBC 8.7 (4.5-11.0) K/uL RBC 3.35 (3.30-5.50) M/uL Hgb 10.0 L (12.0-15.0) g/dL Hct 30.7 L (36.0-48.0) % MCV 92 (80-98) fL MCH 30 (27-31) pg MCHC 33 (32-36) % Plt Count 343 (150-400) K/uL Neut % (Auto) 68 H (36-66) % Lymph % (Auto) 15 L (24-44) % [place] % (Auto) 13 H (2-6) % Eos % (Auto) 2 (2-4) % Baso % (Auto) 2 H (0-1) % PT 12.0 (9.5-12.0) sec INR 1.12 (0.80-1.20) Sodium 140 (140-148) mmol/L Potassium 3.3 L (3.6-5.2) mmol/L Chloride 107 (100-108) mmol/L Carbon Dioxide 21 (21-32) mmol/L Anion Gap 15.3 H (5.0-14.0) mmol/L BUN 13 D (7-18) mg/dL Creatinine 0.8 (0.6-1.0) mg/dL Est Cr Clr Drug Dosing 76.13 mL/min Estimated GFR (MDRD) > 60 (>60) Glucose 118 H (74-106) mg/dL Calcium 8.7 (8.5-10.1) mg/dL Total Bilirubin 0.9 (0.2-1.0) mg/dL AST 73 H (15-37) U/L ALT 38 (12-78) U/L Alkaline Phosphatase 449 H (46-116) U/L Total Protein 5.7 L (6.4-8.2) g/dL Albumin 2.2 L (3.4-5.0) g/dL Globulin 3.5 (2.3-3.5) g/dL Albumin/Globulin Ratio 0.6 L (1.2-2.2) Meds: Medications Discontinued Medications Generic Name Dose Route Start Last Admin Trade Name Freq PRN Reason Stop Dose Admin Factor VIIa (Recombinant) 2,000 mcg 08/28/17 11:34 08/28/17 11:59 Novoseven Rt IVPUSH 08/28/17 11:35 2,000 mcg ONETIME ONE Administration Sodium Chloride 1,000 mls @ 500 mls/hr 08/28/17 11:45 08/28/17 11:49 Normal Saline IV 500 mls/hr ASDIRECTED [facility] Administration - Re-Assessments/Exams Free Text/Narrative Re-Assessment/Exam: 08/28/17 11:39 An IV was started, a 7.5 cm rapid Rhino was placed in the left nares after the clots were blown clear. Factor VII 2000 mg IV was given. A PT, PTT, CBC and CMP were obtained. 08/28/17 12:31 Labs were all reassuring, and platelets were normal, ProTime was normal, hemoglobin is 10.0. Bleeding was controlled with the rapid Rhino over the course of an hour while she got a liter of normal saline. She is going to be discharged home, keep the packing in place and return tomorrow for packing removal and we'll also repeat hemoglobin at that time. If bleeding recurs in the meantime she can return anytime. Departure - Departure Time of Disposition: 13:31 Disposition: Home, Self-Care 01 Condition: Fair Clinical Impression: Neuroendocrine carcinoma metastatic to bone, Anterior epistaxis - Discharge Information Instructions: Nosebleed, [id number] Referrals: Murali Becerra MD [Primary Care Provider] - Forms: ED Department Discharge Care Plan Goals: Keep packing in place, and return tomorrow anytime after 11 AM. Return sooner if bleeding recurs despite the packing.
[2017-08-28] MEDS ORDERED: Sodium Chloride 0.9% 1,000 ML IV SCH (11:45)
[2017-08-28 13:30] VITALS: BP 115/67
== END 2017-08-28 13:25 | disposition home or self-care (01) ==
LOC: JP.ED 10:59
DX: R04.0 Epistaxis (principal); C7A.8 Other malignant neuroendocrine tumors; C79.51 Secondary malignant neoplasm of bone; Z79.899 Other long term (current) drug therapy; Z88.1 Allergy status to other antibiotic agents
CPT/HCPCS: 30903; 36415; 80053; 85025; 85610; 96361; 96374; 99284; J7040; J7189

== ENCOUNTER 2017-08-29 10:38 | Emergency (ER) | payer BC ==
[2017-08-29 10:59] VITALS: BP 112/66
--- NOTE | 2017-08-29 11:28 | EDM.PDOC ---
ED HPI GENERAL MEDICAL PROBLEM - General Chief Complaint: ENT Problem Stated Complaint: NEEDS TUBE TAKEN OUT OF NOSE Time Seen by Provider: 08/29/17 11:00 Source of Information: Reports: Patient, Family History Limitations: Reports: No Limitations - History of Present Illness INITIAL COMMENTS - FREE TEXT/NARRATIVE: Patient was seen yesterday with a significant left-sided epistaxis. She is in today to remove the packing and recheck her hemoglobin. She has some discomfort in her face but otherwise has done well. Severity: Moderate (Hemorrhaging yesterday was fairly significant) Left Nose Pain Score (Numeric/FACES): 5 - Related Data Allergies Allergy/AdvReac Type Severity Reaction Status Date / Time cephalexin Allergy Swollen Verified 08/29/17 10:59 Tongue Home Meds: Home Meds Albuterol Sulfate 2.5 mg IH Q6H PRN 07/18/17 [History] Albuterol Sulfate [Proair Hfa] 108 mcg INH Q6H PRN 07/18/17 [History] Omeprazole 40 mg PO DAILY 07/18/17 [History] fentaNYL [Fentanyl] 12 patch TOP Q72H 07/18/17 [History] oxyCODONE 10 mg PO Q6H PRN 07/18/17 [History] Ondansetron [Zofran ODT] 4 mg PO Q4H PRN tab.dis 07/21/17 [Rx] Past Medical History - Past Health History Medical/Surgical History: Denies Medical/Surgical History Respiratory History: Reports: Other (See Below) Other Respiratory History: currently being worked up for right lung mass Gastrointestinal History: Reports: Other (See Below) Other Gastrointestinal History: fluid around pancreas [employer] History: Reports: Musculoskeletal History: Reports: Back Pain, Chronic, Fracture Endocrine/Metabolic History: Reports: Obesity/BMI 30+ Oncologic (Cancer) History: Reports: Liver Other Oncologic History: WITH METS TO BONES AND BLOOD - Infectious Disease History Infectious Disease History: Reports: Chicken Pox - Past Surgical History GI Surgical History: Reports: Colonoscopy, Polypectomy, Other (See Below) Other GI Surgeries/Procedures: Liver biopsy positive for cancer Female Surgical History: Reports: Tubal Ligation Musculoskeletal Surgical History: Reports: ORIF Social & Family History - Family History Family Medical History: Noncontributory - Tobacco Use Smoking Status *Q: Never Smoker Second Hand Smoke Exposure: No - Caffeine Use Caffeine Use: Reports: Coffee - Alcohol Use Days Per Week of Alcohol Use: 0 - Recreational Drug Use Recreational Drug Use: No ED ROS ENT - Review of Systems Review Of Systems: See Below Constitutional: Denies: Fever, Chills HEENT: Reports: Sinus Problem (Feeling some sinus pressure and pain from the nasal packing on the left side) Respiratory: Denies: Shortness of Breath, Cough Cardiovascular: Denies: Chest Pain Skin: Denies: Pallor Neurological: Denies: Headache ED EXAM, ENT - Physical Exam Exam: See Below Exam Limited By: No Limitations General Appearance: Alert, No Apparent Distress Nose: Other (After the rapid Rhino was removed, the nares were patent without bleeding) Mouth/Throat: Normal Inspection (No pharyngeal bleeding) Head: Atraumatic Respiratory/Chest: No Respiratory Distress Course - Vital Signs Last Recorded V/S: Last Vital Signs Temp 99 F 08/29/17 10:54 Pulse 94 08/29/17 10:54 Resp 18 08/29/17 10:54 BP 112/66 08/29/17 10:54 Pulse Ox 96 08/29/17 10:54 - Orders/Labs/Meds Labs: Laboratory Tests 08/29/17 Range/Units 11:07 WBC 9.2 (4.5-11.0) K/uL RBC 3.32 (3.30-5.50) M/uL Hgb 9.9 L (12.0-15.0) g/dL Hct 30.6 L (36.0-48.0) % MCV 92 (80-98) fL MCH 30 (27-31) pg MCHC 32 (32-36) % Plt Count 371 (150-400) K/uL Neut % (Auto) 61 (36-66) % Lymph % (Auto) 18 L (24-44) % [place] % (Auto) 15 H (2-6) % Eos % (Auto) 4 (2-4) % Baso % (Auto) 2 H (0-1) % - Re-Assessments/Exams Free Text/Narrative Re-Assessment/Exam: 08/29/17 11:27 The rapid Rhino was removed without complications. No bleeding recurred after 20 minutes. Repeat hemoglobin was 9.9 which was reassuring. Patient was discharged and encouraged to continue current medications and evaluation of her medical illnesses as scheduled. Departure - Departure Time of Disposition: 11:30 Disposition: Home, Self-Care 01 Condition: Good Clinical Impression: Anterior epistaxis - Discharge Information Referrals: Murali Becerra MD [Primary Care Provider] - Forms: ED Department Discharge Care Plan Goals: Continue current activity and medications, follow up as scheduled and return anytime if worsening or concerns.
== END 2017-08-29 11:34 | disposition home or self-care (01) ==
LOC: JP.EDOUT 10:38
DX: R04.0 Epistaxis (principal); Z79.899 Other long term (current) drug therapy; Z88.1 Allergy status to other antibiotic agents
CPT/HCPCS: 36415; 85025; 99284

== ENCOUNTER 2017-09-08 18:43 | Emergency (ER) | payer BC ==
[2017-09-08] MEDS ORDERED: Ondansetron 4 MG/2 ML SDV IVPUSH ONE (19:32)
--- NOTE | 2017-09-08 19:37 | EDM.PDOC ---
ED HPI GENERAL MEDICAL PROBLEM - General Chief Complaint: Gastrointestinal Problem Stated Complaint: CAN'T KEEP ANYTHING DOWN Time Seen by Provider: 09/08/17 19:25 Source of Information: Reports: Patient, Family History Limitations: Reports: No Limitations - History of Present Illness INITIAL COMMENTS - FREE TEXT/NARRATIVE: 52-year-old female with metastatic cancer who has not undergone any treatment so far has had persistent nausea and vomiting over the past 12-24 hours. It was intermittent for the first 12 hours, now persistent for the past 12. No increased pain, she does feel like her abdomen is slowly becoming more distended. No shortness of breath. Bowels are moving. She has not seen any blood in the emesis. No diarrhea. She had an episode similar to this several weeks ago that was not a bowel obstruction and did resolve. Onset: Gradual (Over the past 24 hours) Severity: Moderate Worsens with: Reports: Other (Seems to trigger the emesis when trying to eat or drink) Associated Symptoms: Reports: Malaise, Nausea/Vomiting, Weakness, Other (Some abdominal discomfort with distention, no significant abdominal pain). Denies: Chest Pain, Cough Right Upper Abdominal Pain Score (Numeric/FACES): 6 - Related Data Allergies Allergy/AdvReac Type Severity Reaction Status Date / Time cephalexin Allergy Swollen Verified 09/08/17 19:07 Tongue Home Meds: Home Meds Albuterol Sulfate 2.5 mg IH Q6H PRN 07/18/17 [History] Albuterol Sulfate [Proair Hfa] 108 mcg INH Q6H PRN 07/18/17 [History] Omeprazole 40 mg PO DAILY 07/18/17 [History] fentaNYL [Fentanyl] 12 patch TOP Q72H 07/18/17 [History] oxyCODONE 10 mg PO Q6H PRN 07/18/17 [History] Ondansetron [Zofran ODT] 4 mg PO Q4H PRN tab.dis 07/21/17 [Rx] Past Medical History - Past Health History Medical/Surgical History: Denies Medical/Surgical History Respiratory History: Reports: Other (See Below) Other Respiratory History: R LUNG CA WITH METS Gastrointestinal History: Reports: Other (See Below) Other Gastrointestinal History: 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: Musculoskeletal History: Reports: Back Pain, Chronic, Fracture Endocrine/Metabolic History: Reports: Obesity/BMI 30+ Other Hematologic History: LUNG CA WITH METS TO BLOOD, BONE, AND LIVER Immunologic History: Reports: Immunosuppression Oncologic (Cancer) History: Reports: Liver Other Oncologic History: WITH METS TO BONES AND BLOOD - Infectious Disease History Infectious Disease History: Reports: Chicken Pox - Past Surgical History GI Surgical History: Reports: Colonoscopy, Polypectomy, Other (See Below) Other GI Surgeries/Procedures: Liver biopsy positive for cancer Female Surgical History: Reports: Tubal Ligation Musculoskeletal Surgical History: Reports: ORIF Other Musculoskeletal Surgeries/Procedures:: CA WITH METS TO THE BONES Social & Family History - Family History Family Medical History: Noncontributory - Tobacco Use Smoking Status *Q: Unknown Ever Smoked Second Hand Smoke Exposure: No - Caffeine Use Caffeine Use: Reports: Coffee - Alcohol Use Days Per Week of Alcohol Use: 0 - Recreational Drug Use Recreational Drug Use: No ED ROS GENERAL - Review of Systems Review Of Systems: See Below Constitutional: Reports: Malaise, Weakness. Denies: Fever, Chills HEENT: Reports: No Symptoms, Other (No recent epistaxis for which she was treated for several weeks ago) Respiratory: Denies: Shortness of Breath Cardiovascular: Denies: Chest Pain Endocrine: Reports: Fatigue GI/Abdominal: Reports: Abdominal Pain (Intermittent abdominal pressure and distention, no significant pain) : Reports: No Symptoms Neurological: Reports: Weakness. Denies: Headache ED EXAM, GENERAL - Physical Exam Exam: See Below Exam Limited By: No Limitations General Appearance: Alert, No Apparent Distress (Looks uncomfortable but not distressed) Eye Exam: Bilateral Eye: Normal Inspection (No jaundice, eyes are well-hydrated) Head: Atraumatic Respiratory/Chest: No Respiratory Distress, Lungs Clear Cardiovascular: Regular Rate, Rhythm, Tachycardia GI/Abdominal: Tender (Mild diffuse discomfort with palpation), Abnormal Bowel Sounds (Bowel sounds are present and active but somewhat high-pitched), Hepatomegaly (Notable hepatomegaly with an irregular liver surface) Extremities: No: Pedal Edema Neurological: Alert, Oriented Psychiatric: Depressed Mood, Flat Affect Skin Exam: Warm, Dry Course - Vital Signs Last Recorded V/S: Last Vital Signs Temp 98.6 F 09/08/17 21:16 Pulse 103 H 09/08/17 21:16 Resp 14 09/08/17 21:16 BP 115/63 09/08/17 21:16 Pulse Ox 98 09/08/17 21:16 - Orders/Labs/Meds Orders: Active Orders 24 hr Category Date Time Status Abdomen Pelvis w Cont [CT] Stat Exams 09/08/17 20:14 Taken Abdomen Pelvis wo Cont [CT] Stat Exams 09/08/17 20:12 Stop Req Labs: Laboratory Tests 09/08/17 09/08/17 Range/Units 19:40 19:40 WBC 10.3 (4.5-11.0) K/uL RBC 3.19 L (3.30-5.50) M/uL Hgb 9.5 L (12.0-15.0) g/dL Hct 29.7 L (36.0-48.0) % MCV 93 (80-98) fL MCH 30 (27-31) pg MCHC 32 (32-36) % Plt Count 498 H (150-400) K/uL Neut % (Auto) 73 H (36-66) % Lymph % (Auto) 15 L (24-44) % [place] % (Auto) 10 H (2-6) % Eos % (Auto) 1 L (2-4) % Baso % (Auto) 2 H (0-1) % Sodium 141 (140-148) mmol/L Potassium 3.1 L (3.6-5.2) mmol/L Chloride 108 (100-108) mmol/L Carbon Dioxide 22 (21-32) mmol/L Anion Gap 14.1 H (5.0-14.0) mmol/L BUN 11 (7-18) mg/dL Creatinine 0.8 (0.6-1.0) mg/dL Est Cr Clr Drug Dosing 73.18 mL/min Estimated GFR (MDRD) > 60 (>60) Glucose 106 (74-106) mg/dL Calcium 8.5 (8.5-10.1) mg/dL Total Bilirubin 0.7 (0.2-1.0) mg/dL AST 75 H (15-37) U/L ALT 30 (12-78) U/L Alkaline Phosphatase 470 H (46-116) U/L Total Protein 5.9 L (6.4-8.2) g/dL Albumin 2.3 L (3.4-5.0) g/dL Globulin 3.6 H (2.3-3.5) g/dL Albumin/Globulin Ratio 0.6 L (1.2-2.2) Amylase 28 (25-115) U/L Lipase 88 (73-393) U/L Meds: Medications Discontinued Medications Generic Name Dose Route Start Last Admin Trade Name Luisq PRN Reason Stop Dose Admin Sodium Chloride 1,000 mls @ 1,000 mls/hr 09/08/17 19:45 09/08/17 19:45 Normal Saline IV 1,000 mls/hr ASDIRECTED ANGELLA Administration Sodium Chloride 100 mls @ 3 mls/sec 09/08/17 20:30 09/08/17 20:35 Normal Saline IV 3 mls/sec ASDIRECTED ANGELLA Administration Potassium Chloride 20 meq/ 100 mls @ 50 mls/hr 09/08/17 20:56 09/08/17 21:13 Premix IV 09/08/17 22:55 50 mls/hr ONETIME ONE Administration Iopamidol 135 ml 09/08/17 20:30 09/08/17 20:35 Isovue-300 (61%) IV 135 ml . DIRECTED ANGLELA Administration Ondansetron HCl 4 mg 09/08/17 19:32 09/08/17 19:45 Zofran IVPUSH 09/08/17 19:33 4 mg ONETIME ONE Administration - Re-Assessments/Exams Free Text/Narrative Re-Assessment/Exam: 09/08/17 19:37 Patient will be hydrated with normal saline and given IV Zofran. CBC, CMP, amylase and lipase are obtained with the intent to get a CT scan to rule out bowel obstruction due to tumor mass. 09/08/17 22:22 White count is normal, hemoglobin 9.5 which is stable for her. Potassium is only 3.1, other labs are reassuring including a normal GFR and creatinine. Alkaline phosphatase is elevated chronically. CT with IV contrast was then obtained and showed no evidence of bowel obstruction, tumor mass looks to be fairly stable from June. She seemed to respond to the IV Zofran. She'll be discharged with sublingual Zofran to use up to 3 times daily and can try to advance diet as tolerated. Departure - Departure Time of Disposition: 22:35 Disposition: Home, Self-Care 01 Condition: Fair Clinical Impression: Hypokalemia, Neuroendocrine carcinoma metastatic to multiple sites Nausea with vomiting Qualifiers: Vomiting type: unspecified Vomiting Intractability: non-intractable Qualified Code(s): R11.2 - Nausea with vomiting, unspecified - Discharge Information Instructions: Nausea and Vomiting, Adult, [id number] Referrals: Murali Becerra MD [Primary Care Provider] - Forms: ED Department Discharge Care Plan Goals: Advance diet slowly concentrating on fluids, small amounts frequently. Use Zofran as prescribed. Return anytime if not improving satisfactorily. Consider a potassium supplement or foods rich in potassium such as bananas as your nausea improves. - My Orders Last 24 Hours: My Active Orders 09/08/17 20:12 Abdomen Pelvis wo Cont [CT] Stat 09/08/17 20:14 Abdomen Pelvis w Cont [CT] Stat - Assessment/Plan Last 24 Hours: My Active Orders 09/08/17 20:12 Abdomen Pelvis wo Cont [CT] Stat 09/08/17 20:14 Abdomen Pelvis w Cont [CT] Stat
[2017-09-08] MEDS ORDERED: Sodium Chloride 0.9% 1,000 ML IV SCH (19:45)
[2017-09-08] MEDS ORDERED: Iopamidol 612 MG/ML 150 ML Bottle IV SCH (20:30)
[2017-09-08] MEDS ORDERED: Sodium Chloride 0.9% 100 ML IV SCH (20:30)
[2017-09-08] MEDS ORDERED: Potassium Chloride 20 MEQ in Premix Bag 1 BAG IV ONE (20:56)
[2017-09-08 21:18] VITALS: BP 115/63
== END 2017-09-08 22:36 | disposition home or self-care (01) ==
LOC: JP.ED 18:43
DX: E87.6 Hypokalemia (principal); R11.2 Nausea with vomiting, unspecified; C7A.8 Other malignant neuroendocrine tumors; C34.90 Malignant neoplasm of unspecified part of unspecified bronchus or lung; C78.7 Secondary malignant neoplasm of liver and intrahepatic bile duct; C79.51 Secondary malignant neoplasm of bone; C79.52 Secondary malignant neoplasm of bone marrow; E66.9 Obesity, unspecified; Z79.899 Other long term (current) drug therapy; Z88.1 Allergy status to other antibiotic agents
CPT/HCPCS: 36415; 74177; 80053; 82150; 83690; 85025; 96361; 96374; 99284; J2405; J3480; J7030; J7040

== ENCOUNTER 2017-09-10 23:35 | Emergency (ER) | payer BC ==
[2017-09-11 00:01] VITALS: BP 120/66
[2017-09-11] MEDS ORDERED: Albuterol/Ipratropium 3.0-0.5 MG/3 ML Neb Soln NEB ONE (00:05)
--- NOTE | 2017-09-11 00:49 | EDM.PDOC ---
ED HPI GENERAL MEDICAL PROBLEM - General Chief Complaint: Respiratory Problem Stated Complaint: SOB Time Seen by Provider: 09/11/17 00:05 Source of Information: Reports: Patient, Family History Limitations: Reports: No Limitations - History of Present Illness INITIAL COMMENTS - FREE TEXT/NARRATIVE: 52-year-old female with metastatic neuroendocrine tumor with known lung metastasis presents with reactive airways and wheezing. It's been an ongoing problem for her but this morning she ran out of her home albuterol nebulizer ampules. No fevers or chills. No increased pain. Location: Reports: Chest Severity: Mild Associated Symptoms: Reports: Cough, Shortness of Breath. Denies: Fever/Chills , Headaches - Related Data Allergies Allergy/AdvReac Type Severity Reaction Status Date / Time cephalexin Allergy Swollen Verified 09/08/17 19:07 Tongue Home Meds: Home Meds Albuterol Sulfate 2.5 mg IH Q6H PRN 07/18/17 [History] Albuterol Sulfate [Proair Hfa] 108 mcg INH Q6H PRN 07/18/17 [History] Omeprazole 40 mg PO DAILY 07/18/17 [History] fentaNYL [Fentanyl] 12 patch TOP Q72H 07/18/17 [History] oxyCODONE 10 mg PO Q6H PRN 07/18/17 [History] Ondansetron [Zofran ODT] 4 mg PO Q4H PRN tab.dis 07/21/17 [Rx] Past Medical History - Past Health History Medical/Surgical History: Denies Medical/Surgical History Respiratory History: Reports: Other (See Below) Other Respiratory History: R LUNG CA WITH METS Gastrointestinal History: Reports: Other (See Below) Other Gastrointestinal History: 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: Musculoskeletal History: Reports: Back Pain, Chronic, Fracture Endocrine/Metabolic History: Reports: Obesity/BMI 30+ Other Hematologic History: LUNG CA WITH METS TO BLOOD, BONE, AND LIVER Immunologic History: Reports: Immunosuppression Oncologic (Cancer) History: Reports: Liver Other Oncologic History: WITH METS TO BONES AND BLOOD - Infectious Disease History Infectious Disease History: Reports: Chicken Pox - Past Surgical History GI Surgical History: Reports: Colonoscopy, Polypectomy, Other (See Below) Other GI Surgeries/Procedures: Liver biopsy positive for cancer Female Surgical History: Reports: Tubal Ligation Musculoskeletal Surgical History: Reports: ORIF Other Musculoskeletal Surgeries/Procedures:: CA WITH METS TO THE BONES Social & Family History - Family History Family Medical History: Noncontributory - Tobacco Use Smoking Status *Q: Unknown Ever Smoked Second Hand Smoke Exposure: No - Caffeine Use Caffeine Use: Reports: Coffee - Alcohol Use Days Per Week of Alcohol Use: 0 - Recreational Drug Use Recreational Drug Use: No ED ROS GENERAL - Review of Systems Review Of Systems: See Below Constitutional: Reports: Malaise, Weakness. Denies: Fever, Chills HEENT: Reports: No Symptoms Respiratory: Reports: Shortness of Breath, Wheezing, Cough. Denies: Sputum Cardiovascular: Denies: Chest Pain GI/Abdominal: Reports: Nausea Neurological: Denies: Headache Psychiatric: Reports: No Symptoms ED EXAM, GENERAL - Physical Exam Exam: See Below Exam Limited By: No Limitations General Appearance: Alert, No Apparent Distress Respiratory/Chest: No Respiratory Distress, Wheezing (Diffuse expiratory wheezes , especially with forced expiration). No: Prolonged Expiration Cardiovascular: Regular Rate, Rhythm, Tachycardia Neurological: Alert, Oriented Psychiatric: Normal Affect, Normal Mood Skin Exam: Warm, Dry Course - Vital Signs Last Recorded V/S: Last Vital Signs Temp 99.5 F 09/10/17 23:51 Pulse 119 H 09/10/17 23:51 Resp 20 09/10/17 23:51 BP 120/66 09/10/17 23:51 Pulse Ox 94 L 09/10/17 23:51 - Orders/Labs/Meds Orders: Active Orders 24 hr Category Date Time Status RT Aerosol Therapy [RC] ASDIRECTED Care 09/11/17 00:05 Active Meds: Medications Discontinued Medications Generic Name Dose Route Start Last Admin Trade Name Seema PRN Reason Stop Dose Admin Albuterol/Ipratropium 3 ml 09/11/17 00:05 09/11/17 00:15 Duoneb 3.0-0.5 Mg/3 Ml NEB 09/11/17 00:06 3 ml ONETIME ONE Administration - Re-Assessments/Exams Free Text/Narrative Re-Assessment/Exam: 09/11/17 00:47 A DuoNeb was given to the patient which provided her marked relief. She was supplied with 25 albuterol ampules for her nebulizer from the [facility]. She can use these every 2-4 hours as needed, and will return if worsening despite treatment. She has an appointment at [facility] in one week to initiate treatment for her metastatic cancer. Departure - Departure Time of Disposition: 00:55 Disposition: Home, Self-Care 01 Condition: Good Clinical Impression: Reactive airway disease Qualifiers: Asthma severity: mild Asthma complication type: with acute exacerbation - Discharge Information Instructions: Shortness of Breath, [id number] Referrals: Murali Becerra MD [Primary Care Provider] - Forms: ED Department Discharge Care Plan Goals: Use nebulizer every 3-4 hours as needed for wheezing. Continue other medications and return at any time if worsening or concerns. Consider Mucinex to break up pulmonary congestion. - My Orders Last 24 Hours: My Active Orders 09/11/17 00:05 RT Aerosol Therapy [RC] ASDIRECTED - Assessment/Plan Last 24 Hours: My Active Orders 09/11/17 00:05 RT Aerosol Therapy [RC] ASDIRECTED
== END 2017-09-11 00:56 | disposition home or self-care (01) ==
LOC: JP.ED 23:35
DX: J45.901 Unspecified asthma with (acute) exacerbation (principal); C34.91 Malignant neoplasm of unspecified part of right bronchus or lung; Z79.899 Other long term (current) drug therapy; Z88.1 Allergy status to other antibiotic agents
CPT/HCPCS: 94640; 99285; J7620

== ENCOUNTER 2017-09-16 18:14 | Emergency (ER) | payer BC ==
[2017-09-16] MEDS ORDERED: Albuterol/Ipratropium 3.0-0.5 MG/3 ML Neb Soln NEB ONE (19:44)
--- NOTE | 2017-09-16 19:51 | EDM.PDOC ---
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 She has a non-productive cough. No fever. Feels similar to her asthma, but she is not responding to her inhalers. Has bilateral LE edema for the past few weeks, right greater than left. Was her a week ago and had her nebulizer medicine refilled, but this has not helped. Onset: Gradual Onset Date: 08/31/17 Duration: Day(s):, Week(s): Location: Reports: Chest Quality: Reports: Other (mild tightness) Severity: Mild Improves with: Reports: Rest Worsens with: Reports: Movement (exertion. ) Context: Reports: Other (Hx of asthma) Associated Symptoms: Reports: Cough, Shortness of Breath. 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 pain Pain Score (Numeric/FACES): 5 - Related Data Allergies Allergy/AdvReac Type Severity Reaction Status Date / Time cephalexin Allergy Swollen Verified 09/16/17 19:02 Tongue Home Meds: Home Meds Albuterol Sulfate 2.5 mg IH Q6H PRN 07/18/17 [History] Albuterol Sulfate [Proair Hfa] 108 mcg INH Q6H PRN 07/18/17 [History] Omeprazole 40 mg PO DAILY 07/18/17 [History] fentaNYL [Fentanyl] 12 patch TOP Q72H 07/18/17 [History] oxyCODONE 10 mg PO Q6H PRN 07/18/17 [History] Ondansetron [Zofran ODT] 4 mg PO Q4H PRN tab.dis 07/21/17 [Rx] Potassium Chloride 10 meq PO TID #20 cap.er 09/16/17 [Rx] predniSONE [Prednisone] 10 mg PO TID #14 tablet 09/16/17 [Rx] Past Medical History - Past Health History Medical/Surgical History: Denies Medical/Surgical History HEENT History: Reports: Epistaxis, Impaired Vision Respiratory History: Reports: Asthma, SOB, Other (See Below) Other Respiratory History: R LUNG CA WITH METS Gastrointestinal History: Reports: Other (See Below) Other Gastrointestinal History: 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: Musculoskeletal History: Reports: Back Pain, Chronic, Fracture Neurological History: Reports: Migraines Endocrine/Metabolic History: Reports: Obesity/BMI 30+ Hematologic History: Reports: Other (See Below) Other Hematologic History: LUNG CA WITH METS TO BLOOD, BONE, AND LIVER Immunologic History: Reports: Immunosuppression Oncologic (Cancer) History: Reports: Liver, Lung Other Oncologic History: WITH METS TO BONES AND BLOOD Dermatologic History: Reports: Other (See Below) Other Dermatologic History: unknown rash on face, patient states, "I did have it on my abdomen too but that went away." - Infectious Disease History Infectious Disease History: Reports: Chicken Pox, Shingles - Past Surgical History HEENT Surgical History: Reports: Eye Surgery GI Surgical History: Reports: Colonoscopy, Polypectomy, Other (See Below) Other GI Surgeries/Procedures: Liver biopsy positive for cancer Female Surgical History: Reports: Tubal Ligation Musculoskeletal Surgical History: Reports: ORIF, Other (See Below) Other Musculoskeletal Surgeries/Procedures:: CA WITH METS TO THE BONES Social & Family History - Family History Family Medical History: Noncontributory - Tobacco Use Smoking Status *Q: Never Smoker Second Hand Smoke Exposure: No - Caffeine Use Caffeine Use: Reports: Coffee - Alcohol Use Days Per Week of Alcohol Use: 0 - Recreational Drug Use Recreational Drug Use: No ED ROS GENERAL - Review of Systems Review Of Systems: See Below Constitutional: Reports: No Symptoms HEENT: Reports: No Symptoms Respiratory: Reports: Shortness of Breath, Cough. Denies: Sputum, Hemoptysis Cardiovascular: Reports: No Symptoms Endocrine: Reports: No Symptoms GI/Abdominal: Reports: No Symptoms : Reports: Dysuria (mild) Musculoskeletal: Reports: No Symptoms Skin: Reports: No Symptoms Neurological: Reports: No Symptoms ED EXAM, GENERAL - Physical Exam Exam: See Below Exam Limited By: No Limitations General Appearance: Alert, WD/WN, No Apparent Distress Eye Exam: Bilateral Eye: Normal Inspection Ears: Normal External Exam, Normal Canal, Hearing Grossly Normal Ear Exam: Bilateral Ear: Auricle Normal, Canal Normal Nose: Normal Inspection, Normal Mucosa, No Blood Throat/Mouth: Normal Inspection, Normal Lips, Normal Oropharynx, Normal Voice, No Airway Compromise Head: Atraumatic, Normocephalic Neck: Normal Inspection, Supple, Non-Tender Respiratory/Chest: No Respiratory Distress, Lungs Clear, Normal Breath Sounds, No Accessory Muscle Use. No: Crackles, Rales, Rhonchi, Wheezing, Pleural Rub, Retractions Cardiovascular: Regular Rate, Rhythm, No Edema GI/Abdominal: Normal Bowel Sounds, Soft, Non-Tender, No Distention Back Exam: Normal Inspection. No: CVA Tenderness (R), CVA Tenderness (L) Extremities: Normal Inspection, Normal Range of Motion, Non-Tender, Pedal Edema (R > L) Neurological: Alert, Oriented, CN II-XII Intact, Normal Cognition, No Motor/ Sensory Deficits Psychiatric: Normal Affect, Normal Mood Skin Exam: Warm, Dry, Intact, Normal Color, No Rash Lymphatic: No Adenopathy Course - Vital Signs Last Recorded V/S: Last Vital Signs Temp 36.8 C 09/16/17 19:01 Pulse 109 H 09/16/17 19:30 Resp 16 09/16/17 19:01 BP 120/71 09/16/17 20:35 Pulse Ox 95 09/16/17 20:05 - Orders/Labs/Meds Orders: Active Orders 24 hr Category Date Time Status RT Aerosol Therapy [RC] ASDIRECTED Care 09/16/17 19:45 Active Chest 2V [CR] Stat Exams 09/16/17 19:46 Taken CULTURE URINE [RM] Stat Lab 09/16/17 20:10 Received Labs: Laboratory Tests 09/16/17 09/16/17 09/16/17 Range/Units 19:53 20:01 20:01 WBC 10.5 (4.5-11.0) K/uL RBC 3.15 L (3.30-5.50) M/uL Hgb 9.1 L (12.0-15.0) g/dL Hct 28.9 L (36.0-48.0) % MCV 92 (80-98) fL MCH 29 (27-31) pg MCHC 32 (32-36) % Plt Count 414 H (150-400) K/uL Sodium 140 (140-148) mmol/L Potassium 2.9 L* (3.6-5.2) mmol/L Chloride 108 (100-108) mmol/L Carbon Dioxide 22 (21-32) mmol/L Anion Gap 12.9 (5.0-14.0) mmol/L BUN 10 (7-18) mg/dL Creatinine 1.0 (0.6-1.0) mg/dL Est Cr Clr Drug Dosing 58.54 mL/min Estimated GFR (MDRD) 58 L (>60) Glucose 116 H (74-106) mg/dL Calcium 9.0 (8.5-10.1) mg/dL Magnesium (1.8-2.4) mg/dL Urine Color Yellow Urine Appearance Cloudy Urine pH 6.0 (4.5-8.0) Ur Specific [place] 1.020 (1.008-1.030) Urine Protein 30 H (NEGATIVE) mg/dL Urine Glucose (UA) Normal (NEGATIVE) mg/dL Urine Ketones Negative (NEGATIVE) mg/dL Urine Occult Blood Trace (NEGATIVE) Urine Nitrite Negative (NEGATIVE) Urine Bilirubin Negative (NEGATIVE) Urine Urobilinogen 1 (NORMAL) mg/dL Ur Leukocyte Esterase Large (NEGATIVE) Urine RBC 5-10 H (0-5) Urine WBC Packed H (0-5) Ur Epithelial Cells Many Amorphous Sediment Not seen Urine Bacteria Moderate Urine Mucus Not seen 09/16/17 Range/Units 20:24 WBC (4.5-11.0) K/uL RBC (3.30-5.50) M/uL Hgb (12.0-15.0) g/dL Hct (36.0-48.0) % MCV (80-98) fL MCH (27-31) pg MCHC (32-36) % Plt Count (150-400) K/uL Sodium (140-148) mmol/L Potassium (3.6-5.2) mmol/L Chloride (100-108) mmol/L Carbon Dioxide (21-32) mmol/L Anion Gap (5.0-14.0) mmol/L BUN (7-18) mg/dL Creatinine (0.6-1.0) mg/dL Est Cr Clr Drug Dosing mL/min Estimated GFR (MDRD) (>60) Glucose (74-106) mg/dL Calcium (8.5-10.1) mg/dL Magnesium 2.0 (1.8-2.4) mg/dL Urine Color Urine Appearance Urine pH (4.5-8.0) Ur Specific [place] (1.008-1.030) Urine Protein (NEGATIVE) mg/dL Urine Glucose (UA) (NEGATIVE) mg/dL Urine Ketones (NEGATIVE) mg/dL Urine Occult Blood (NEGATIVE) Urine Nitrite (NEGATIVE) Urine Bilirubin (NEGATIVE) Urine Urobilinogen (NORMAL) mg/dL Ur Leukocyte Esterase (NEGATIVE) Urine RBC (0-5) Urine WBC (0-5) Ur Epithelial Cells Amorphous Sediment Urine Bacteria Urine Mucus Meds: Medications Discontinued Medications Generic Name Dose Route Start Last Admin Trade Name Freq PRN Reason Stop Dose Admin Albuterol/Ipratropium 3 ml 09/16/17 19:44 09/16/17 19:56 Duoneb 3.0-0.5 Mg/3 Ml NEB 09/16/17 19:45 3 ml ONETIME ONE Administration Potassium Chloride 40 meq 09/16/17 20:21 09/16/17 20:31 Potassium Chloride PO 09/16/17 20:22 40 meq ONETIME ONE Administration Prednisone 20 mg 09/16/17 20:44 Prednisone PO 09/16/17 20:45 ONETIME ONE Spironolactone 50 mg 09/16/17 20:22 Aldactone PO 09/16/17 20:23 ONETIME ONE - Radiology Interpretation Free Text/Narrative:: CXR-bilateral subtle interstitial changes. Departure - Departure Time of Disposition: 20:50 Disposition: Home, Self-Care 01 Clinical Impression: Hypokalemia, Lower extremity edema UTI (urinary tract infection) Qualifiers: Urinary tract infection type: acute cystitis Hematuria presence: without hematuria Qualified Code(s): N30.00 - Acute cystitis without hematuria Asthma Qualifiers: Asthma severity: mild Asthma persistence: intermittent Asthma complication type : with acute exacerbation Qualified Code(s): J45.21 - Mild intermittent asthma with (acute) exacerbation - Discharge Information Prescriptions: Potassium Chloride 10 meq PO TID #20 cap.er predniSONE [Prednisone] 10 mg PO TID #14 tablet Referrals: Murali Becerra MD [Primary Care Provider] - Forms: ED Department Discharge - My Orders Last 24 Hours: My Active Orders 09/16/17 19:45 RT Aerosol Therapy [RC] ASDIRECTED 09/16/17 19:46 Chest 2V [CR] Stat 09/16/17 20:10 CULTURE URINE [RM] Stat - Assessment/Plan Last 24 Hours: My Active Orders 09/16/17 19:45 RT Aerosol Therapy [RC] ASDIRECTED 09/16/17 19:46 Chest 2V [CR] Stat 09/16/17 20:10 CULTURE URINE [RM] Stat
[2017-09-16] MEDS ORDERED: Potassium Chloride 10 MEQ Cap.ER PO ONE (20:21)
[2017-09-16] MEDS ORDERED: Spironolactone 25 MG Tab PO ONE (20:22)
[2017-09-16 20:36] VITALS: BP 120/71
[2017-09-16] MEDS ORDERED: predniSONE 20 MG Tab PO ONE (20:44)
[2017-09-16] MEDS ORDERED: Sulfamethoxazole/Trimethoprim 800-160 MG Tab PO ONE (20:59)
--- NOTE | 2017-09-18 09:40 | CR ---
Chest 2V HISTORY: Cough COMPARISON: None FINDINGS: There is some very subtle interstitial changes at the both lung bases which could represent minimal edema or inflammatory process. The mid and upper lung zones are clear. No dense infiltrate o r significant effusion.
== END 2017-09-16 21:13 | disposition home or self-care (01) ==
LOC: JP.ED 18:14
DX: J45.21 Mild intermittent asthma with (acute) exacerbation (principal); N30.00 Acute cystitis without hematuria; E87.6 Hypokalemia; Z88.1 Allergy status to other antibiotic agents; Z79.899 Other long term (current) drug therapy
CPT/HCPCS: 36415; 71020; 80048; 81001; 83735; 85027; 87086; 94640; 99285; A9270; J7620

== ENCOUNTER 2017-10-02 14:32 | Emergency (ER) | payer BC ==
[2017-10-02] MEDS ORDERED: Prochlorperazine 10 MG/2 ML SDV IVPUSH ONE (15:38)
[2017-10-02] MEDS ORDERED: Sodium Chloride 0.9% 10 ML Syringe FLUSH PRN (15:39)
[2017-10-02] MEDS ORDERED: Lactated Ringers 1,000 ML IV SCH (15:45)
--- NOTE | 2017-10-02 15:46 | EDM.PDOC ---
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 currently no radiation or chemotherapy treatments available, states for the last couple days had difficulty keeping any food products down continued nausea and vomiting she does have Zofran at home which is not helping Abdomen Pain Score (Numeric/FACES): 8 - Related Data Allergies Allergy/AdvReac Type Severity Reaction Status Date / Time cephalexin Allergy Swollen Verified 09/16/17 19:02 Tongue Home Meds: Home Meds Albuterol Sulfate 2.5 mg IH Q6H PRN 07/18/17 [History] Albuterol Sulfate [Proair Hfa] 108 mcg INH Q6H PRN 07/18/17 [History] Omeprazole 40 mg PO DAILY 07/18/17 [History] fentaNYL [Fentanyl] 12 patch TOP Q72H 07/18/17 [History] oxyCODONE 10 mg PO Q6H PRN 07/18/17 [History] Ondansetron [Zofran ODT] 4 mg PO Q4H PRN tab.dis 07/21/17 [Rx] Enoxaparin [Lovenox] 40 mg SUBCUT Q12HR 10/02/17 [History] Octreotide [SandoSTATIN] 1 ml INJECT TID 10/02/17 [History] Past Medical History HEENT History: Reports: Epistaxis, Impaired Vision Cardiovascular History: Reports: Blood Clots/VTE/DVT Respiratory History: Reports: Asthma, SOB, Other (See Below) Other Respiratory History: R LUNG CA WITH METS Gastrointestinal History: Reports: Other (See Below) Other Gastrointestinal History: fluid around pancreas [employer] History: Reports: Musculoskeletal History: Reports: Back Pain, Chronic, Fracture Neurological History: Reports: Migraines Endocrine/Metabolic History: Reports: Obesity/BMI 30+ Hematologic History: Reports: Other (See Below) Other Hematologic History: LUNG CA WITH METS TO BLOOD, BONE, AND LIVER Immunologic History: Reports: Immunosuppression Oncologic (Cancer) History: Reports: Liver, Lung, Metastatic (Neuro endocrine tumor) Dermatologic History: Reports: Other (See Below) Other Dermatologic History: unknown rash on face, patient states, "I did have it on my abdomen too but that went away." - Infectious Disease History Infectious Disease History: Reports: Chicken Pox, Shingles - Past Surgical History HEENT Surgical History: Reports: Eye Surgery GI Surgical History: Reports: Colonoscopy, Polypectomy, Other (See Below) Other GI Surgeries/Procedures: Liver biopsy positive for cancer Female Surgical History: Reports: Tubal Ligation Musculoskeletal Surgical History: Reports: ORIF, Other (See Below) Other Musculoskeletal Surgeries/Procedures:: CA WITH METS TO THE BONES Social & Family History - Family History Family Medical History: Noncontributory - Tobacco Use Smoking Status *Q: Never Smoker Second Hand Smoke Exposure: No - Caffeine Use Caffeine Use: Reports: Coffee - Alcohol Use Days Per Week of Alcohol Use: 0 - Recreational Drug Use Recreational Drug Use: No ED ROS GENERAL - Review of Systems Review Of Systems: See Below Constitutional: Reports: Weakness, Fatigue HEENT: Reports: No Symptoms Respiratory: Reports: No Symptoms Cardiovascular: Reports: No Symptoms GI/Abdominal: Reports: Nausea, Vomiting : Reports: No Symptoms Musculoskeletal: Reports: No Symptoms Skin: Reports: No Symptoms ED EXAM, GI/ABD - Physical Exam Exam: See Below Text/Narrative:: General: Ill-appearing, not in any distress, alert and oriented x3 HEENT: head is atraumatic normocephalic, eyes pupils equal round reactive to light, sclera clear no conjunctivitis appreciated. Ears tympanic membranes clear and patel landmarks and light reflex are present bilaterally canals are clear. Nose no septal deviation, nares are clear, no blood present. Mouth mucosa is moist and pink no erythema or exudate noted in soft palate, tongue is midline uvula is midline, dentition is intact. Neck: Supple no thyromegaly no tracheal deviation. Nodes: Cervical nodes subclavicular nodes nontender no palpable lymphadenopathy noted. Lungs: clear to auscultation bilaterally with symmetrical respirations, no adventitious noise appreciated. CV: Regular rate and rhythm S1 and S2 appreciated no murmurs rubs or gallops noted. Abdomen: Soft, nontender, no palpable masses or organomegaly appreciated, no distention no guarding bowel sounds are present, . Neuro: Cranial nerves II through XII grossly intact Skin: Warm and dry, intact Extremities: Trace edema appreciated lower extremities Course - Vital Signs Last Recorded V/S: Last Vital Signs Temp 97.9 F 10/02/17 15:07 Pulse 102 H 10/02/17 16:52 Resp 14 10/02/17 16:52 BP 111/63 10/02/17 16:52 Pulse Ox 96 10/02/17 16:52 - Orders/Labs/Meds Orders: Active Orders 24 hr Category Date Time Status Peripheral IV Care [RC] . DIRECTED Care 10/02/17 15:39 Active Lactated Ringers [Ringers, Lactated] 1,000 ml Med 10/02/17 15:45 Active IV ASDIRECTED Sodium Chloride 0.9% [Saline Flush] Med 10/02/17 15:39 Active 10 ml FLUSH ASDIRECTED PRN Peripheral IV Insertion Adult [OM.PC] Urgent Oth 10/02/17 15:39 Ordered Medication Orders Lactated Ringer's (Ringers, Lactated) 1,000 mls @ 500 mls/hr IV ASDIRECTED ANGELLA Last Admin: 10/02/17 15:54 Dose: 500 mls/hr Sodium Chloride (Saline Flush) 10 ml FLUSH ASDIRECTED PRN PRN Reason: Keep Vein Open Last Admin: 10/02/17 15:56 Dose: 10 ml Labs: Laboratory Tests 10/02/17 10/02/17 10/02/17 Range/Units 15:56 15:56 17:53 WBC 11.0 (4.5-11.0) K/uL RBC 3.05 L (3.30-5.50) M/uL Hgb 8.6 L (12.0-15.0) g/dL Hct 28.3 L (36.0-48.0) % MCV 93 (80-98) fL MCH 28 (27-31) pg MCHC 30 L (32-36) % Plt Count 375 (150-400) K/uL Neut % (Auto) 66 (36-66) % Lymph % (Auto) 16 L (24-44) % [place] % (Auto) 14 H (2-6) % Eos % (Auto) 2 (2-4) % Baso % (Auto) 2 H (0-1) % Sodium 138 L (140-148) mmol/L Potassium 3.6 (3.6-5.2) mmol/L Chloride 101 (100-108) mmol/L Carbon Dioxide 30 (21-32) mmol/L Anion Gap 10.6 (5.0-14.0) mmol/L BUN 7 (7-18) mg/dL Creatinine 0.9 (0.6-1.0) mg/dL Est Cr Clr Drug Dosing 65.05 mL/min Estimated GFR (MDRD) > 60 (>60) Glucose 108 H (74-106) mg/dL Calcium 9.2 (8.5-10.1) mg/dL Total Bilirubin 0.9 (0.2-1.0) mg/dL AST 66 H (15-37) U/L ALT 34 (12-78) U/L Alkaline Phosphatase 502 H (46-116) U/L Total Protein 5.8 L (6.4-8.2) g/dL Albumin 2.2 L (3.4-5.0) g/dL Globulin 3.6 H (2.3-3.5) g/dL Albumin/Globulin Ratio 0.6 L (1.2-2.2) Urine Color Yellow Urine Appearance Slightly cloudy Urine pH 6.0 (4.5-8.0) Ur Specific [place] 1.020 (1.008-1.030) Urine Protein Negative (NEGATIVE) mg/dL Urine Glucose (UA) Normal (NEGATIVE) mg/dL Urine Ketones 15 H (NEGATIVE) mg/dL Urine Occult Blood Moderate (NEGATIVE) Urine Nitrite Positive H (NEGATIVE) Urine Bilirubin Negative (NEGATIVE) Urine Urobilinogen Normal (NORMAL) mg/dL Ur Leukocyte Esterase Large (NEGATIVE) Urine RBC 10-20 H (0-5) Urine WBC 40-50 H (0-5) Ur Epithelial Cells Few Amorphous Sediment Not seen Urine Bacteria Many Urine Mucus Moderate Meds: Medications Generic Name Dose Route Start Last Admin Trade Name Freq PRN Reason Stop Dose Admin Lactated Ringer's 1,000 mls @ 500 mls/hr 10/02/17 15:45 10/02/17 15:54 Ringers, Lactated IV 500 mls/hr ASDIRECTED ANGELLA Administration Sodium Chloride 10 ml 10/02/17 15:39 10/02/17 15:56 Saline Flush FLUSH 10 ml ASDIRECTED PRN Administration Keep Vein Open Discontinued Medications Generic Name Dose Route Start Last Admin Trade Name Freq PRN Reason Stop Dose Admin Ciprofloxacin 500 mg 10/02/17 19:03 Ciprofloxacin Hcl PO 10/02/17 19:04 ONETIME ONE Prochlorperazine Edisylate 5 mg 10/02/17 15:38 10/02/17 15:59 Compazine IVPUSH 10/02/17 15:39 5 mg ONETIME ONE Administration Departure - Departure Time of Disposition: 19:10 Disposition: Home, Self-Care 01 Condition: Poor Clinical Impression: 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 DIRECTED Sodium Chloride 0.9% [Saline Flush] 10 ml FLUSH ASDIRECTED PRN Peripheral IV Insertion Adult [OM.PC] Urgent 10/02/17 15:45 Lactated Ringers [Ringers, Lactated] 1,000 ml IV ASDIRECTED - Assessment/Plan Last 24 Hours: My Active Orders 10/02/17 15:39 Peripheral IV Care [RC] . DIRECTED Sodium Chloride 0.9% [Saline Flush] 10 ml FLUSH ASDIRECTED PRN Peripheral IV Insertion Adult [OM.PC] Urgent 10/02/17 15:45 Lactated Ringers [Ringers, Lactated] 1,000 ml IV ASDIRECTED Plan: Assessment Acuity = acute Site and laterality = urinary tract infection complicated in a patient with known history of neuroendocrine tumor with metastases Etiology = probable bacterial cause Manifestations = nausea and vomiting Location of injury = Home Lab values = hemoglobin low at 8.6 consistent with normochromic anemia alkaline phosphatase markedly elevated [address] related to metastasis to the bone albumin low at 2.2 consistent hypoalbuminemia urinalysis positive for nitrates rbc's 10-20 consistent with hematuria and WBCs 40-50 consistent with pyuria culture is pending Plan she had good relief with combination Compazine and 1 L of fluids she was able to rest in the emergency department a urinalysis was positive cultures pending she was treated for urinary tract infection a couple weeks ago with ciprofloxacin however she did not finish the course of antibiotics was very patchy in her treatment therefore elected to treat her with a 7 day course she does have follow-up appointment with oncology this upcoming week prescription written for ciprofloxacin 500 mg by mouth twice a day 7 days and Compazine 5 mg by mouth 3 times a day when necessary total #20 tablets, Patient was in agreement with the plan all questions were answered, they were instructed to return to the emergency department or call for worsening symptoms. This note was dictated using [employer] voice recognition software please call with any questions.
[2017-10-02 16:52] VITALS: BP 111/63
[2017-10-02] MEDS ORDERED: Ciprofloxacin 500 MG Tab PO ONE (19:03)
[2017-10-02] MEDS ORDERED: Morphine 2 MG/ML Syringe IVPUSH ONE (19:07)
== END 2017-10-02 19:31 | disposition home or self-care (01) ==
LOC: JP.ED 14:32
DX: C7A.8 Other malignant neuroendocrine tumors (principal); C79.51 Secondary malignant neoplasm of bone; N30.01 Acute cystitis with hematuria; J45.909 Unspecified asthma, uncomplicated; Z79.899 Other long term (current) drug therapy; Z88.1 Allergy status to other antibiotic agents
CPT/HCPCS: 36415; 80053; 81001; 85025; 87086; 87088; 87186; 87493; 96361; 96374; 96375; 99284; A9270; J0780; J2270; J7050; J7120

== ENCOUNTER 2017-10-07 08:07 | Emergency (ER) | payer BC ==
[2017-10-07] MEDS ORDERED: Metoclopramide 10 MG/2 ML SDV IVPUSH ONE (09:03)
[2017-10-07] MEDS ORDERED: Ondansetron 4 MG/2 ML SDV IVPUSH ONE (09:04)
--- NOTE | 2017-10-07 09:11 | EDM.PDOC ---
ED HPI GENERAL MEDICAL PROBLEM - General Chief Complaint: Gastrointestinal Problem Stated Complaint: VOMITING/NEEDS FLUIDS Time Seen by Provider: 10/07/17 09:05 Source of Information: Reports: Patient History Limitations: Reports: No Limitations - History of Present Illness INITIAL COMMENTS - FREE TEXT/NARRATIVE: pt has ca which was thought to have started in the lung and spread to her liver and at his point has spread quite widesspread. She has been vomiting almost continuously. She has been having difficulty holding down her pain meds. She is on no definte chemo. She does take somethingh about every 28 days to stop the growth of the tumor. Onset: Gradual, Other ( this has been going on for several days. ) Duration: Day(s): Location: Reports: Abdomen Associated Symptoms: Reports: Nausea/Vomiting, Other (pt has vomited many times already this am. ) Abdominal Pain Score (Numeric/FACES): 8 - Related Data Allergies Allergy/AdvReac Type Severity Reaction Status Date / Time cephalexin Allergy Swollen Verified 10/07/17 08:26 Tongue Home Meds: Home Meds Albuterol Sulfate 2.5 mg IH Q6H PRN 07/18/17 [History] Albuterol Sulfate [Proair Hfa] 108 mcg INH Q6H PRN 07/18/17 [History] Omeprazole 40 mg PO DAILY 07/18/17 [History] oxyCODONE 10 mg PO Q6H PRN 07/18/17 [History] Ondansetron [Zofran ODT] 4 mg PO Q4H PRN tab.dis 07/21/17 [Rx] Enoxaparin [Lovenox] 40 mg SUBCUT Q12HR 10/02/17 [History] Ciprofloxacin HCl [Cipro] 500 mg PO BID 10/07/17 [History] Folic Acid 1 mg PO DAILY 10/07/17 [History] Prochlorperazine [Compazine] 5 mg PO Q6H PRN 10/07/17 [History] Past Medical History - Past Health History Medical/Surgical History: Denies Medical/Surgical History HEENT History: Reports: Epistaxis, Impaired Vision Cardiovascular History: Reports: Blood Clots/VTE/DVT Respiratory History: Reports: Asthma, SOB, Other (See Below) Other Respiratory History: R LUNG CA WITH METS Gastrointestinal History: Reports: Other (See Below) Other Gastrointestinal History: fluid around pancreas [employer] History: Reports: Musculoskeletal History: Reports: Back Pain, Chronic, Fracture Neurological History: Reports: Migraines Endocrine/Metabolic History: Reports: Obesity/BMI 30+ Hematologic History: Reports: Other (See Below) Other Hematologic History: LUNG CA WITH METS TO BLOOD, BONE, AND LIVER Immunologic History: Reports: Immunosuppression Oncologic (Cancer) History: Reports: Liver, Lung, Metastatic Other Oncologic History: WITH METS TO BONES AND BLOOD Dermatologic History: Reports: Other (See Below) Other Dermatologic History: unknown rash on face, patient states, "I did have it on my abdomen too but that went away." - Infectious Disease History Infectious Disease History: Reports: Chicken Pox, Shingles - Past Surgical History HEENT Surgical History: Reports: Eye Surgery GI Surgical History: Reports: Colonoscopy, Polypectomy, Other (See Below) Other GI Surgeries/Procedures: Liver biopsy positive for cancer Female Surgical History: Reports: Tubal Ligation Musculoskeletal Surgical History: Reports: ORIF, Other (See Below) Other Musculoskeletal Surgeries/Procedures:: CA WITH METS TO THE BONES Social & Family History - Family History Family Medical History: Noncontributory - Tobacco Use Smoking Status *Q: Never Smoker Second Hand Smoke Exposure: No - Caffeine Use Caffeine Use: Reports: Coffee - Alcohol Use Days Per Week of Alcohol Use: 0 - Recreational Drug Use Recreational Drug Use: No ED ROS GENERAL - Review of Systems Review Of Systems: See Below Constitutional: Reports: Fatigue, Other (persistent vomiting. ) HEENT: Reports: No Symptoms Respiratory: Reports: No Symptoms Cardiovascular: Reports: No Symptoms Endocrine: Reports: No Symptoms GI/Abdominal: Reports: Abdominal Pain, Nausea, Vomiting, Other ( Pt has a large known abdomanal mass involving the liver. ) : Reports: No Symptoms Musculoskeletal: Reports: No Symptoms Skin: Reports: No Symptoms ED EXAM, GI/ABD - Physical Exam Exam: See Below Text/Narrative:: pt had a liter of fluids yesterday anf she is still vomiting today. She is struggling to hold her pain meds down. She Is rating her pain at a 8 at this time. She did hold a half of pain tab down this am. Exam Limited By: No Limitations General Appearance: Alert, Anxious, Moderate Distress Ears: Normal TMs Nose: Normal Inspection Throat/Mouth: Normal Inspection Head: Atraumatic Neck: Normal Inspection Respiratory/Chest: No Respiratory Distress Cardiovascular: Regular Rate, Rhythm GI/Abdominal Exam: Tender, Mass, Other (pt has a markedly enlarged liver and is tender over the area. ) (Female) Exam: Deferred Rectal (Female) Exam: Deferred Back Exam: Normal Inspection Extremities: Normal Inspection Neurological: Alert, Oriented, Normal Cognition Psychiatric: Depressed Mood Course - Vital Signs Last Recorded V/S: Last Vital Signs Temp 36.7 C 10/07/17 08:23 Pulse 81 10/07/17 11:14 Resp 14 10/07/17 11:14 BP 103/61 10/07/17 11:14 Pulse Ox 91 L 10/07/17 11:14 - Orders/Labs/Meds Orders: Active Orders 24 hr Category Date Time Status Sodium Chloride 0.9% [Normal Saline] 1,000 ml Med 10/07/17 09:15 Active IV ASDIRECTED Sodium Chloride 0.9% [Normal Saline] 1,000 ml Med 10/07/17 10:00 Active IV ASDIRECTED fentaNYL [Duragesic] Med 10/07/17 10:45 Active 25 mcg TRDERM Q72H Medication Orders Fentanyl (Duragesic) 25 mcg TRDERM Q72H [facility] Last Admin: 10/07/17 11:11 Dose: 25 mcg Sodium Chloride (Normal Saline) 1,000 mls @ 999 mls/hr IV ASDIRECTED [facility] Last Admin: 10/07/17 09:24 Dose: 999 mls/hr Sodium Chloride (Normal Saline) 1,000 mls @ 999 mls/hr IV ASDIRECTED [facility] Last Admin: 10/07/17 10:41 Dose: 999 mls/hr Labs: Laboratory Tests 10/07/17 10/07/17 Range/Units 09:11 09:11 WBC 8.0 (4.5-11.0) K/uL RBC 3.03 L (3.30-5.50) M/uL Hgb 8.6 L (12.0-15.0) g/dL Hct 28.0 L (36.0-48.0) % MCV 92 (80-98) fL MCH 28 (27-31) pg MCHC 31 L (32-36) % Plt Count 338 (150-400) K/uL Neut % (Auto) 61 (36-66) % Lymph % (Auto) 21 L (24-44) % [place] % (Auto) 13 H (2-6) % Eos % (Auto) 3 (2-4) % Baso % (Auto) 2 H (0-1) % Sodium 139 L (140-148) mmol/L Potassium 3.6 (3.6-5.2) mmol/L Chloride 104 (100-108) mmol/L Carbon Dioxide 30 (21-32) mmol/L Anion Gap 8.6 (5.0-14.0) mmol/L BUN 6 L (7-18) mg/dL Creatinine 1.0 (0.6-1.0) mg/dL Est Cr Clr Drug Dosing 58.54 mL/min Estimated GFR (MDRD) 58 L (>60) Glucose 110 H (74-106) mg/dL Calcium 8.9 (8.5-10.1) mg/dL Total Bilirubin 0.6 (0.2-1.0) mg/dL AST 38 H (15-37) U/L ALT 24 (12-78) U/L Alkaline Phosphatase 443 H (46-116) U/L Total Protein 5.6 L (6.4-8.2) g/dL Albumin 2.0 L (3.4-5.0) g/dL Globulin 3.6 H (2.3-3.5) g/dL Albumin/Globulin Ratio 0.6 L (1.2-2.2) Meds: Medications Generic Name Dose Route Start Last Admin Trade Name Freq PRN Reason Stop Dose Admin Fentanyl 25 mcg 10/07/17 10:45 10/07/17 11:11 Duragesic TRDERM 25 mcg Q72H ANGELLA Administration Sodium Chloride 1,000 mls @ 999 mls/hr 10/07/17 09:15 10/07/17 09:24 Normal Saline IV 999 mls/hr ASDIRECTED ANGELLA Administration Sodium Chloride 1,000 mls @ 999 mls/hr 10/07/17 10:00 10/07/17 10:41 Normal Saline IV 999 mls/hr ASDIRECTED ANGELLA Administration Discontinued Medications Generic Name Dose Route Start Last Admin Trade Name Freq PRN Reason Stop Dose Admin Hydromorphone HCl 0.5 mg 10/07/17 10:36 10/07/17 10:42 Dilaudid IVPUSH 10/07/17 10:37 0.5 mg ONETIME ONE Administration Metoclopramide HCl 10 mg 10/07/17 09:03 10/07/17 09:28 Reglan IVPUSH 10/07/17 09:04 10 mg ONETIME ONE Administration Ondansetron HCl 8 mg 10/07/17 09:04 10/07/17 09:25 Zofran IVPUSH 10/07/17 09:05 8 mg ONETIME ONE Administration - Re-Assessments/Exams Free Text/Narrative Re-Assessment/Exam: 10/07/17 10:56 pt was taken off of her fentyl patch and she continues to vomit. 10/07/17 11:39 Departure - Departure Time of Disposition: 11:40 Disposition: Home, Self-Care 01 Condition: Fair Clinical Impression: Dehydration, Metastatic cancer - Discharge Information Referrals: Murali Becerra MD [Primary Care Provider] - Forms: ED Department Discharge Care Plan Goals: keep follow up appts, reglan 10 mg bid for vomiting. resume fentyl patch 25 mg q 72 hours. - My Orders Last 24 Hours: My Active Orders 10/07/17 09:15 Sodium Chloride 0.9% [Normal Saline] 1,000 ml IV ASDIRECTED 10/07/17 10:00 Sodium Chloride 0.9% [Normal Saline] 1,000 ml IV ASDIRECTED 10/07/17 10:45 fentaNYL [Duragesic] 25 mcg TRDERM Q72H - Assessment/Plan Last 24 Hours: My Active Orders 10/07/17 09:15 Sodium Chloride 0.9% [Normal Saline] 1,000 ml IV ASDIRECTED 10/07/17 10:00 Sodium Chloride 0.9% [Normal Saline] 1,000 ml IV ASDIRECTED 10/07/17 10:45 fentaNYL [Duragesic] 25 mcg TRDERM Q72H
[2017-10-07] MEDS ORDERED: Sodium Chloride 0.9% 1,000 ML IV SCH ×2 (09:15→10:00)
[2017-10-07] MEDS ORDERED: HYDROmorphone 0.5 MG/0.5 ML Syringe IVPUSH ONE (10:36)
[2017-10-07] MEDS ORDERED: fentaNYL 25 MCG/HR Transdermal Patch TRDERM SCH (10:45)
[2017-10-07 11:16] VITALS: BP 103/61
== END 2017-10-07 12:06 | disposition home or self-care (01) ==
LOC: JP.ED 08:07
DX: E86.0 Dehydration (principal); C34.90 Malignant neoplasm of unspecified part of unspecified bronchus or lung; C78.7 Secondary malignant neoplasm of liver and intrahepatic bile duct; Z88.1 Allergy status to other antibiotic agents; Z79.899 Other long term (current) drug therapy
CPT/HCPCS: 36415; 80053; 85025; 96361; 96374; 96375; 99284; A9270; J1170; J2405; J2765; J7040

== ENCOUNTER 2017-10-22 07:46 | Emergency (ER) | payer BC ==
[2017-10-22] MEDS ORDERED: Sodium Chloride 0.9% 10 ML Syringe FLUSH PRN (08:40)
[2017-10-22] MEDS ORDERED: LORazepam 2 MG/ML MDV IVPUSH ONE (08:40)
[2017-10-22] MEDS ORDERED: Sodium Chloride 0.9% 1,000 ML IV SCH (08:45)
[2017-10-22 10:55] VITALS: BP 99/51
--- NOTE | 2017-10-22 12:40 | EDM.PDOC ---
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 She has a lot of chronic pain. She also has a problem with chronic nausea vomiting and diarrhea. This is gotten worse over the past 2 or 3 days. She feels like she may be getting a little bit dehydrated. For nausea she is taking Reglan and Compazine. She was taken off of Zofran in the past. She denies any fever. She is up-to-date on immunizations Abdomen Pain Score (Numeric/FACES): 7 - Related Data Allergies Allergy/AdvReac Type Severity Reaction Status Date / Time cephalexin Allergy Swollen Verified 10/22/17 08:01 Tongue ciprofloxacin [From Cipro] Allergy Nausea and Verified 10/22/17 08:01 Vomiting Home Meds: Home Meds Albuterol Sulfate 2.5 mg IH Q6H PRN 07/18/17 [History] Albuterol Sulfate [Proair Hfa] 108 mcg INH Q6H PRN 07/18/17 [History] Enoxaparin [Lovenox] 40 mg SUBCUT Q12HR 10/02/17 [History] Folic Acid 1 mg PO DAILY 10/07/17 [History] Prochlorperazine [Compazine] 5 mg PO Q6H PRN 10/07/17 [History] Granisetron [Sancuso] 3.1 mg TD ASDIRECTED 10/19/17 [History] HYDROmorphone [Dilaudid] 4 mg PO Q4H 10/19/17 [History] LORazepam [Ativan] 0.5 mg PO Q6HR PRN 10/19/17 [History] Metoclopramide HCl 1 tab PO ASDIRECTED 10/22/17 [History] Past Medical History - Past Health History Medical/Surgical History: Denies Medical/Surgical History HEENT History: Reports: Epistaxis, Impaired Vision Cardiovascular History: Reports: Blood Clots/VTE/DVT Respiratory History: Reports: Asthma, SOB, Other (See Below) Other Respiratory History: R LUNG CA WITH METS Gastrointestinal History: Reports: Other (See Below) Other Gastrointestinal History: fluid around pancreas 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: Musculoskeletal History: Reports: Back Pain, Chronic, Fracture Neurological History: Reports: Migraines Endocrine/Metabolic History: Reports: Obesity/BMI 30+ Hematologic History: Reports: Other (See Below) Other Hematologic History: LUNG CA WITH METS TO BLOOD, BONE, AND LIVER Immunologic History: Reports: Immunosuppression Oncologic (Cancer) History: Reports: Liver, Lung, Metastatic Other Oncologic History: WITH METS TO BONES AND BLOOD Dermatologic History: Reports: Other (See Below) Other Dermatologic History: unknown rash on face, patient states, "I did have it on my abdomen too but that went away." - Infectious Disease History Infectious Disease History: Reports: Chicken Pox, Shingles - Past Surgical History HEENT Surgical History: Reports: Eye Surgery GI Surgical History: Reports: Colonoscopy, Polypectomy, Other (See Below) Other GI Surgeries/Procedures: Liver biopsy positive for cancer Female Surgical History: Reports: Tubal Ligation Musculoskeletal Surgical History: Reports: ORIF, Other (See Below) Other Musculoskeletal Surgeries/Procedures:: CA WITH METS TO THE BONES Social & Family History - Family History Family Medical History: Noncontributory - Tobacco Use Smoking Status *Q: Never Smoker Second Hand Smoke Exposure: No - Caffeine Use Caffeine Use: Reports: Coffee - Alcohol Use Days Per Week of Alcohol Use: 0 - Recreational Drug Use Recreational Drug Use: No ED ROS GENERAL - Review of Systems Review Of Systems: See Below Constitutional: Denies: Fever HEENT: Reports: No Symptoms Respiratory: Reports: No Symptoms Cardiovascular: Reports: No Symptoms GI/Abdominal: Reports: Abdominal Pain (His Zofran and Compazine) : Reports: No Symptoms Musculoskeletal: Reports: No Symptoms Skin: Reports: No Symptoms Neurological: Reports: No Symptoms Psychiatric: Reports: No Symptoms Hematologic/Lymphatic: Reports: No Symptoms ED EXAM, GI/ABD - Physical Exam Exam: See Below Exam Limited By: No Limitations General Appearance: Alert, Mild Distress, Other (Chronically ill appearing but not cachectic) Eyes: Bilateral: Normal Appearance Ears: Normal External Exam, Normal TMs Nose: Normal Inspection Throat/Mouth: Normal Inspection, Normal Oropharynx (Appears to be fairly well hydrated) Head: Atraumatic Neck: Normal Inspection Respiratory/Chest: Lungs Clear Cardiovascular: Regular Rate, Rhythm, No Murmur GI/Abdominal Exam: Hepatomegaly (Severe hepatomegaly) Extremities: Normal Inspection Neurological: Alert, Normal Cognition Psychiatric: Normal Affect Skin Exam: Warm, Dry Course - Vital Signs Last Recorded V/S: Last Vital Signs Temp 36.9 C 10/22/17 07:58 Pulse 105 H 10/22/17 10:29 Resp 16 10/22/17 09:32 BP 99/51 L 10/22/17 10:29 Pulse Ox 92 L 10/22/17 10:29 - Orders/Labs/Meds Orders: Active Orders 24 hr Category Date Time Status CULTURE URINE [RM] Stat Lab 10/22/17 11:27 Received Sodium Chloride 0.9% [Normal Saline] 1,000 ml Med 10/22/17 08:45 Active IV ASDIRECTED Sodium Chloride 0.9% [Saline Flush] Med 10/22/17 08:40 Active 10 ml FLUSH ASDIRECTED PRN Saline Lock Insert [OM.PC] Urgent Oth 10/22/17 08:39 Ordered Medication Orders Sodium Chloride (Normal Saline) 1,000 mls @ 500 mls/hr IV ASDIRECTED ANGELLA Last Admin: 10/22/17 08:45 Dose: 500 mls/hr Sodium Chloride (Saline Flush) 10 ml FLUSH ASDIRECTED PRN PRN Reason: Keep Vein Open Last Admin: 10/22/17 09:12 Dose: 10 ml Labs: Laboratory Tests 10/22/17 10/22/17 10/22/17 Range/Units 08:54 08:54 11:13 WBC 6.4 (4.5-11.0) K/uL RBC 3.43 (3.30-5.50) M/uL Hgb 9.4 L (12.0-15.0) g/dL Hct 29.6 L (36.0-48.0) % MCV 86 (80-98) fL MCH 27 (27-31) pg MCHC 32 (32-36) % Plt Count 309 (150-400) K/uL Neut % (Auto) 73 H (36-66) % Lymph % (Auto) 12 L (24-44) % [place] % (Auto) 13 H (2-6) % Eos % (Auto) 2 (2-4) % Baso % (Auto) 1 (0-1) % Sodium 139 L (140-148) mmol/L Potassium 3.3 L (3.6-5.2) mmol/L Chloride 102 (100-108) mmol/L Carbon Dioxide 27 (21-32) mmol/L Anion Gap 13.3 (5.0-14.0) mmol/L BUN 6 L (7-18) mg/dL Creatinine 0.6 (0.6-1.0) mg/dL Est Cr Clr Drug Dosing 97.57 mL/min Estimated GFR (MDRD) > 60 (>60) Glucose 113 H (74-106) mg/dL Calcium 9.0 (8.5-10.1) mg/dL Total Bilirubin 0.8 (0.2-1.0) mg/dL AST 61 H (15-37) U/L ALT 32 (12-78) U/L Alkaline Phosphatase 372 H (46-116) U/L Total Protein 5.4 L (6.4-8.2) g/dL Albumin 2.0 L (3.4-5.0) g/dL Globulin 3.4 (2.3-3.5) g/dL Albumin/Globulin Ratio 0.6 L (1.2-2.2) Urine Color Yellow Urine Appearance Slightly cloudy Urine pH 5.0 (4.5-8.0) Ur Specific [place] 1.025 (1.008-1.030) Urine Protein Trace (NEGATIVE) mg/dL Urine Glucose (UA) Normal (NEGATIVE) mg/dL Urine Ketones 50 H (NEGATIVE) mg/dL Urine Occult Blood Negative (NEGATIVE) Urine Nitrite Negative (NEGATIVE) Urine Bilirubin Small (NEGATIVE) Urine Urobilinogen 1 (NORMAL) mg/dL Ur Leukocyte Esterase Small (NEGATIVE) Urine RBC 0-5 (0-5) Urine WBC 5-10 H (0-5) Ur Epithelial Cells Few Amorphous Sediment Not seen Urine Bacteria Rare Urine Mucus Many Urine Other Meds: Medications Generic Name Dose Route Start Last Admin Trade Name Freq PRN Reason Stop Dose Admin Sodium Chloride 1,000 mls @ 500 mls/hr 10/22/17 08:45 10/22/17 08:45 Normal Saline IV 500 mls/hr ASDIRECTED ANGELLA Administration Sodium Chloride 10 ml 10/22/17 08:40 10/22/17 09:12 Saline Flush FLUSH 10 ml ASDIRECTED PRN Administration Keep Vein Open Discontinued Medications Generic Name Dose Route Start Last Admin Trade Name Freq PRN Reason Stop Dose Admin Lorazepam 1 mg 10/22/17 08:40 10/22/17 09:12 Ativan IVPUSH 10/22/17 08:41 1 mg ONETIME ONE Administration - Re-Assessments/Exams Free Text/Narrative Re-Assessment/Exam: 10/22/17 12:41 An IV was established. She was given 1 L IV normal saline. I also gave her Ativan 1 mg IV. This seemed to sedate her quite a bit and so we waited about 2 hours or so until she was more alert. She said that seemed to give her good relief from the nausea. She did not receive any more Compazine or Reglan while she was here. Departure - Departure Time of Disposition: 12:42 Disposition: Home, Self-Care 01 Condition: Fair Clinical Impression: Vomiting, Cancer associated pain - Discharge Information Referrals: Murali Becerra MD [Primary Care Provider] - Forms: ED Department Discharge Additional Instructions: Continue all your previous medications. Use Ativan 1 mg either one half or one whole tablet every 8 hours as needed for nausea (#20 tablets). This medication will cause sedation. (This does not apply to you however this medication impairs driving operating machinery and should not be mixed with alcohol) Even if you are unable to eat anything try to maintain your intake of liquids. Your potassium was a little bit low. About 1/2 teaspoon of salt substitute will give you plenty of potassium. Salt substitute which is potassium chloride is available at the grocery store. There are a few white blood cells in your urine. I don't think you have a urinary tract infection but we are sending it for culture. If it grows out anything we will contact you. - My Orders Last 24 Hours: My Active Orders 10/22/17 08:39 Saline Lock Insert [OM.PC] Urgent 10/22/17 08:40 Sodium Chloride 0.9% [Saline Flush] 10 ml FLUSH ASDIRECTED PRN 10/22/17 08:45 Sodium Chloride 0.9% [Normal Saline] 1,000 ml IV ASDIRECTED 10/22/17 11:27 CULTURE URINE [RM] Stat - Assessment/Plan Last 24 Hours: My Active Orders 10/22/17 08:39 Saline Lock Insert [OM.PC] Urgent 10/22/17 08:40 Sodium Chloride 0.9% [Saline Flush] 10 ml FLUSH ASDIRECTED PRN 10/22/17 08:45 Sodium Chloride 0.9% [Normal Saline] 1,000 ml IV ASDIRECTED 10/22/17 11:27 CULTURE URINE [] Stat
== END 2017-10-22 12:57 | disposition home or self-care (01) ==
LOC: JP.ED 07:46
DX: G89.3 Neoplasm related pain (acute) (chronic) (principal); C7A.1 Malignant poorly differentiated neuroendocrine tumors; R11.2 Nausea with vomiting, unspecified; Z79.899 Other long term (current) drug therapy; Z88.8 Allergy status to other drugs, medicaments and biological substances; E66.9 Obesity, unspecified
CPT/HCPCS: 36415; 80053; 81001; 85025; 87086; 96361; 96374; 99284; J2060; J7040; J7050

== ENCOUNTER 2017-10-30 18:28 | Inpatient (IN) | payer BC ==
[2017-10-30] MEDS ORDERED: Ondansetron 4 MG Tab.DIS PO ONE (18:38)
[2017-10-30] MEDS ORDERED: Lactated Ringers 1,000 ML IV ONE (19:22)
[2017-10-30] MEDS ORDERED: Sodium Chloride 0.9% 10 ML Syringe FLUSH PRN (19:22)
--- NOTE | 2017-10-30 19:29 | EDM.PDOC ---
ED HPI GENERAL MEDICAL PROBLEM - General Chief Complaint: General Stated Complaint: ILLNESS Time Seen by Provider: 10/30/17 19:13 Source of Information: Reports: Patient, Family, RN Notes Reviewed History Limitations: Reports: No Limitations - History of Present Illness INITIAL COMMENTS - FREE TEXT/NARRATIVE: 52-year-old female presents emergency department today with weakness and vomiting she has a known history of neuroendocrine carcinoma with metastases is currently not on any chemotherapy treatment at this time does have a consultation with interventional radiology, not within the last week did receive her diagnosis in May of this year and has progressively declined since then, also a consult with hospice today general body pain Pain Score (Numeric/FACES): 8 - Related Data Allergies Allergy/AdvReac Type Severity Reaction Status Date / Time cephalexin Allergy Swollen Verified 10/30/17 19:04 Tongue ciprofloxacin [From Cipro] Allergy Nausea and Verified 10/30/17 19:04 Vomiting Home Meds: Home Meds Albuterol Sulfate 2.5 mg IH Q6H PRN 07/18/17 [History] Albuterol Sulfate [Proair Hfa] 108 mcg INH Q6H PRN 07/18/17 [History] Enoxaparin [Lovenox] 40 mg SUBCUT Q12HR 10/02/17 [History] Folic Acid 1 mg PO DAILY 10/07/17 [History] Prochlorperazine [Compazine] 5 mg PO Q6H PRN 10/07/17 [History] Granisetron [Sancuso] 3.1 mg TD ASDIRECTED 10/19/17 [History] HYDROmorphone [Dilaudid] 4 mg PO Q4H 10/19/17 [History] LORazepam [Ativan] 0.5 mg PO Q6HR PRN 10/19/17 [History] Metoclopramide HCl 10 mg PO ASDIRECTED 10/22/17 [History] Past Medical History HEENT History: Reports: Epistaxis, Impaired Vision Cardiovascular History: Reports: Blood Clots/VTE/DVT Respiratory History: Reports: Asthma, SOB, Other (See Below) Other Respiratory History: R LUNG CA WITH METS Gastrointestinal History: Reports: Other (See Below) Other Gastrointestinal History: fluid around pancreas 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: Musculoskeletal History: Reports: Back Pain, Chronic, Fracture Neurological History: Reports: Migraines Endocrine/Metabolic History: Reports: Obesity/BMI 30+ Hematologic History: Reports: Other (See Below) Other Hematologic History: LUNG CA WITH METS TO BLOOD, BONE, AND LIVER Immunologic History: Reports: Immunosuppression Oncologic (Cancer) History: Reports: Bone, Liver, Lung, Metastatic Other Oncologic History: WITH METS TO BONES AND BLOOD Dermatologic History: Reports: Other (See Below) Other Dermatologic History: unknown rash on face, patient states, "I did have it on my abdomen too but that went away." - Infectious Disease History Infectious Disease History: Reports: Chicken Pox - Past Surgical History HEENT Surgical History: Reports: Eye Surgery GI Surgical History: Reports: Colonoscopy, Polypectomy, Other (See Below) Other GI Surgeries/Procedures: Liver biopsy positive for cancer Female Surgical History: Reports: Tubal Ligation Musculoskeletal Surgical History: Reports: ORIF, Other (See Below) Other Musculoskeletal Surgeries/Procedures:: CA WITH METS TO THE BONES Social & Family History - Family History Family Medical History: Noncontributory - Tobacco Use Smoking Status *Q: Never Smoker Second Hand Smoke Exposure: No - Caffeine Use Caffeine Use: Reports: None - Alcohol Use Days Per Week of Alcohol Use: 0 - Recreational Drug Use Recreational Drug Use: No ED ROS GENERAL - Review of Systems Review Of Systems: See Below Constitutional: Reports: Weakness, Fatigue. Denies: Fever, Chills HEENT: Reports: No Symptoms Respiratory: Reports: No Symptoms Cardiovascular: Reports: No Symptoms GI/Abdominal: Reports: Nausea, Vomiting : Reports: No Symptoms Musculoskeletal: Reports: No Symptoms Skin: Reports: No Symptoms ED EXAM, GENERAL - Physical Exam Exam: See Below Exam Limited By: No Limitations General Appearance: Alert, Mild Distress Respiratory/Chest: No Respiratory Distress, Lungs Clear, Normal Breath Sounds, No Accessory Muscle Use Cardiovascular: Regular Rate, Rhythm, No Murmur Course - Vital Signs Last Recorded V/S: Last Vital Signs Temp 98.1 F 10/30/17 18:54 Pulse 114 H 10/30/17 18:54 Resp 16 10/30/17 18:54 BP 125/72 10/30/17 18:54 Pulse Ox 92 L 10/30/17 18:54 - Orders/Labs/Meds Orders: Active Orders 24 hr Category Date Time Status Peripheral IV Care [RC] . DIRECTED Care 10/30/17 19:22 Ordered CBC WITH AUTO DIFF [HEME] Stat Lab 10/30/17 19:22 Ordered COMPREHENSIVE METABOLIC PN,CMP [CHEM] Stat Lab 10/30/17 19:22 Ordered LACTIC ACID [CHEM] Stat Lab 10/30/17 19:22 Ordered Lactated Ringers [Ringers, Lactated] 1,000 ml Med 10/30/17 19:22 Ordered IV BOLUS Sodium Chloride 0.9% [Saline Flush] Med 10/30/17 19:22 Ordered 10 ml FLUSH ASDIRECTED PRN Peripheral IV Insertion Adult [OM.PC] Urgent Oth 10/30/17 19:22 Ordered Medication Orders Lactated Ringer's (Ringers, Lactated) 1,000 mls @ 999 mls/hr IV BOLUS ONE Stop: 10/30/17 20:22 Sodium Chloride (Saline Flush) 10 ml FLUSH ASDIRECTED PRN PRN Reason: Keep Vein Open Meds: Medications Generic Name Dose Route Start Last Admin Trade Name Freq PRN Reason Stop Dose Admin Lactated Ringer's 1,000 mls @ 999 mls/hr 10/30/17 19:22 Ringers, Lactated IV 10/30/17 20:22 BOLUS ONE Sodium Chloride 10 ml 10/30/17 19:22 Saline Flush FLUSH ASDIRECTED PRN Keep Vein Open Discontinued Medications Generic Name Dose Route Start Last Admin Trade Name Freq PRN Reason Stop Dose Admin Ondansetron HCl 4 mg 10/30/17 18:38 10/30/17 18:52 Zofran Odt PO 10/30/17 18:39 4 mg ONETIME ONE Administration Departure - Departure Time of Disposition: 19:28 Disposition: Admitted As Inpatient 65 Condition: Poor Clinical Impression: Neuroendocrine carcinoma metastatic to multiple sites - Discharge Information Referrals: Murali Becerra MD [Primary Care Provider] - - My Orders Last 24 Hours: My Active Orders 10/30/17 19:22 Peripheral IV Care [RC] . DIRECTED CBC WITH AUTO DIFF [HEME] Stat COMPREHENSIVE METABOLIC PN,CMP [CHEM] Stat LACTIC ACID [CHEM] Stat Lactated Ringers [Ringers, Lactated] 1,000 ml IV BOLUS Sodium Chloride 0.9% [Saline Flush] 10 ml FLUSH ASDIRECTED PRN Peripheral IV Insertion Adult [OM.PC] Urgent - Assessment/Plan Last 24 Hours: My Active Orders 10/30/17 19:22 Peripheral IV Care [RC] . DIRECTED CBC WITH AUTO DIFF [HEME] Stat COMPREHENSIVE METABOLIC PN,CMP [CHEM] Stat LACTIC ACID [CHEM] Stat Lactated Ringers [Ringers, Lactated] 1,000 ml IV BOLUS Sodium Chloride 0.9% [Saline Flush] 10 ml FLUSH ASDIRECTED PRN Peripheral IV Insertion Adult [OM.PC] Urgent Plan: Assessment Acuity = acute Site and laterality = neuroendocrine carcinoma with metastases and progressive decline Etiology = unclear etiology Manifestations = weakness, fatigue, nausea, vomiting Location of injury = Home Lab values = CBC, CMP, lactic acid pending Plan Discuss case with hospitalist correctional probation officer he agreed to come and evaluate the patient in the emergency department for admission and further evaluation This note was dictated using [employer] voice recognition software please call with any questions on syntax or [email or web address].
--- NOTE | 2017-10-30 20:25 | PCM.HP ---
H&P History of Present Illness - General Date of Service: 10/30/17 Admit Problem/Dx: Admission Diagnosis/Problem Admission Diagnosis/Problem Nausea and vomiting Source of Information: Patient, Family, Provider History Limitations: Reports: Altered Mental Status - History of Present Illness Initial Comments - Free Text/Narative: Nettie presents to the emergency room with intractable nausea and vomiting. Symptoms have been present for approximately one month with up some downs. She has had very little to eat or drink in the last 2 weeks and especially the last couple of days. Anytime she tries to eat or drink anything she vomits it back up. She has ongoing difficulty with some diarrhea but this been present for weeks as well. She is not aware of any fevers. She does have moderate right upper quadrant abdominal pain that is achy in nature. This is stable and is helped when she is able to keep down her pain pills. Pain radiates throughout her abdomen. The pain is worse with activity but also comes and goes in waves. This morning her daughter noticed that she was very sleepy and difficult to wake up. She did have the hospice folks come out for consultation and consideration for admission but ultimately the family elected to decline services at this time. 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 She's been too sick to receive any sort of chemotherapy. Workup in the emergency room revealed significant dehydration, chronic anemia and low potassium. Because of her persistent nausea and inability to keep anything down we have elected to admit her to the hospital for hydration and further symptom management as well as additional discussions about the plan of care. general body pain Pain Score (Numeric/FACES): 8 - Related Data Allergies/Adverse Reactions: Allergies Allergy/AdvReac Type Severity Reaction Status Date / Time cephalexin Allergy Swollen Verified 10/30/17 19:04 Tongue ciprofloxacin [From Cipro] Allergy Nausea and Verified 10/30/17 19:04 Vomiting Home Medications: Home Meds Albuterol Sulfate 2.5 mg IH Q6H PRN 07/18/17 [History] Albuterol Sulfate [Proair Hfa] 108 mcg INH Q6H PRN 07/18/17 [History] Enoxaparin [Lovenox] 40 mg SUBCUT Q12HR 10/02/17 [History] Folic Acid 1 mg PO DAILY 10/07/17 [History] Prochlorperazine [Compazine] 5 mg PO Q6H PRN 10/07/17 [History] Granisetron [Sancuso] 3.1 mg TD ASDIRECTED 10/19/17 [History] HYDROmorphone [Dilaudid] 4 mg PO Q4H 10/19/17 [History] LORazepam [Ativan] 0.5 mg PO Q6HR PRN 10/19/17 [History] Metoclopramide HCl 10 mg PO ASDIRECTED 10/22/17 [History] fentaNYL [Duragesic] 25 mcg TRDERM Q72H 10/30/17 [History] Past Medical History - Past Health History Medical/Surgical History: Denies Medical/Surgical History HEENT History: Reports: Epistaxis, Impaired Vision Cardiovascular History: Reports: Blood Clots/VTE/DVT Respiratory History: Reports: Asthma, SOB, Other (See Below) Other Respiratory History: R LUNG CA WITH METS Gastrointestinal History: Reports: Other (See Below) Other Gastrointestinal History: fluid around pancreas 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: Musculoskeletal History: Reports: Back Pain, Chronic, Fracture Neurological History: Reports: Migraines Endocrine/Metabolic History: Reports: Obesity/BMI 30+ Hematologic History: Reports: Other (See Below) Other Hematologic History: LUNG CA WITH METS TO BLOOD, BONE, AND LIVER Immunologic History: Reports: Immunosuppression Oncologic (Cancer) History: Reports: Bone, Liver, Lung, Metastatic Other Oncologic History: WITH METS TO BONES AND BLOOD Dermatologic History: Reports: Other (See Below) Other Dermatologic History: unknown rash on face, patient states, "I did have it on my abdomen too but that went away." - Infectious Disease History Infectious Disease History: Reports: Chicken Pox - Past Surgical History HEENT Surgical History: Reports: Eye Surgery GI Surgical History: Reports: Colonoscopy, Polypectomy, Other (See Below) Other GI Surgeries/Procedures: Liver biopsy positive for cancer Female Surgical History: Reports: Tubal Ligation Musculoskeletal Surgical History: Reports: ORIF, Other (See Below) Other Musculoskeletal Surgeries/Procedures:: CA WITH METS TO THE BONES Social & Family History - Family History Family Medical History: Noncontributory - Tobacco Use Smoking Status *Q: Never Smoker Second Hand Smoke Exposure: No - Caffeine Use Caffeine Use: Reports: None - Alcohol Use Days Per Week of Alcohol Use: 0 - Recreational Drug Use Recreational Drug Use: No H&P Review of Systems - Review of Systems: Review Of Systems: See Below Free Text/Narrative: A complete 12 point review of systems was obtained. Pertinent positives and negatives are noted in the history of present illness. All other systems were reviewed and were negative except as noted. Exam - Exam Exam: See Below - Vital Signs Vital Signs: Last Vital Signs Temp 36.7 C 10/30/17 18:54 Pulse 114 H 10/30/17 18:54 Resp 16 10/30/17 18:54 BP 125/72 10/30/17 18:54 Pulse Ox 92 L 10/30/17 18:54 Weight: 78.9 kg - Exam Quality Assessment: No: Supplemental Oxygen General: Alert, Oriented, Cooperative, Mild Distress, Lethargic HEENT: No: Mucosa Moist & [place] (dry), Scleral Icterus Neck: Supple, Trachea Midline. No: Lymphadenopathy Lungs: Clear to Auscultation, Normal Respiratory Effort Cardiovascular: Regular Rate, Regular Rhythm, Systolic Murmur GI/Abdominal Exam: Normal Bowel Sounds, Soft, Distended, Tender, Hepatomegaly Extremities: Pedal Edema (Pitting edema to mid velasquez bilaterally). No: Increased Warmth Peripheral Pulses: 1+: Dorsalis Pedis (L), Dorsalis Pedis (R) Skin: Warm, Dry. No: [place] Neuro Extensive - Mental Status: Alert, Slow Response to Commands Neuro Extensive - Motor, Sensory, Reflexes: CN II-XII Intact. No: Dysarthria, Abnormal Motor, Tremor Psychiatric: Alert, Normal Affect - Patient Data Lab Results Last 24 hrs: Laboratory Results - last 24 hr 10/30/17 10/30/17 10/30/17 Range/Units 19:33 19:33 19:33 WBC 7.8 (4.5-11.0) K/uL RBC 3.35 (3.30-5.50) M/uL Hgb 9.1 L (12.0-15.0) g/dL Hct 28.0 L (36.0-48.0) % MCV 84 (80-98) fL MCH 27 (27-31) pg MCHC 33 (32-36) % Plt Count 234 (150-400) K/uL Neut % (Auto) 54 (36-66) % Lymph % (Auto) 24 (24-44) % [place] % (Auto) 17 H (2-6) % Eos % (Auto) 3 (2-4) % Baso % (Auto) 3 H (0-1) % Sodium 137 L (140-148) mmol/L Potassium 3.2 L (3.6-5.2) mmol/L Chloride 100 (100-108) mmol/L Carbon Dioxide 27 (21-32) mmol/L Anion Gap 13.2 (5.0-14.0) mmol/L BUN 5 L (7-18) mg/dL Creatinine 0.7 (0.6-1.0) mg/dL Est Cr Clr Drug Dosing 83.63 mL/min Estimated GFR (MDRD) > 60 (>60) Glucose 103 (74-106) mg/dL Lactic Acid 1.2 (0.4-2.0) mmol/L Calcium 8.5 (8.5-10.1) mg/dL Magnesium (1.8-2.4) mg/dL Total Bilirubin 0.8 (0.2-1.0) mg/dL AST 82 H (15-37) U/L ALT 37 (12-78) U/L Alkaline Phosphatase 315 H (46-116) U/L Total Protein 4.7 L (6.4-8.2) g/dL Albumin 1.8 L (3.4-5.0) g/dL Globulin 2.9 (2.3-3.5) g/dL Albumin/Globulin Ratio 0.6 L (1.2-2.2) 10/30/17 Range/Units 20:14 WBC (4.5-11.0) K/uL RBC (3.30-5.50) M/uL Hgb (12.0-15.0) g/dL Hct (36.0-48.0) % MCV (80-98) fL MCH (27-31) pg MCHC (32-36) % Plt Count (150-400) K/uL Neut % (Auto) (36-66) % Lymph % (Auto) (24-44) % [place] % (Auto) (2-6) % Eos % (Auto) (2-4) % Baso % (Auto) (0-1) % Sodium (140-148) mmol/L Potassium (3.6-5.2) mmol/L Chloride (100-108) mmol/L Carbon Dioxide (21-32) mmol/L Anion Gap (5.0-14.0) mmol/L BUN (7-18) mg/dL Creatinine (0.6-1.0) mg/dL Est Cr Clr Drug Dosing mL/min Estimated GFR (MDRD) (>60) Glucose (74-106) mg/dL Lactic Acid (0.4-2.0) mmol/L Calcium (8.5-10.1) mg/dL Magnesium 1.6 L (1.8-2.4) mg/dL Total Bilirubin (0.2-1.0) mg/dL AST (15-37) U/L ALT (12-78) U/L Alkaline Phosphatase (46-116) U/L Total Protein (6.4-8.2) g/dL Albumin (3.4-5.0) g/dL Globulin (2.3-3.5) g/dL Albumin/Globulin Ratio (1.2-2.2) Result Diagrams: 10/30/17 19:33 10/30/17 19:33 *Q Meaningful Use (ADM) - VTE *Q VTE Criteria *Q: - VTE Risk Assess *Q Each Risk Factor Represents 1 Point: Age 41 - 59 years, Swollen Legs, Current Total Score 1 Point Risk Factors: 2 Each Risk Factor Represents 2 Points: Malignancy (present or previous) Total Score 2 Point Risk Factors: 2 Each Risk Factor Represents 3 Points: History of DVT/PE Total Score 3 Point Risk Factors: 3 Each Risk Factor Represents 5 Points: None Total Score 5 Point Risk Factors: 0 Venous Thromboembolism Risk Factor Score *Q: 7 - Stroke *Q Stroke Criteria *Q: - AMI *Q AMI Criteria *Q: - Problem List (1) Nausea and vomiting SNOMED Code(s): 56159048 ICD Code: R11.2 - NAUSEA WITH VOMITING, UNSPECIFIED Status: Acute Current Visit: Yes Qualifiers: Vomiting type: unspecified Vomiting Intractability: intractable Qualified Code(s): R11.2 - Nausea with vomiting, unspecified (2) Neuroendocrine carcinoma metastatic to multiple sites SNOMED Code(s): 429944437 ICD Code: C7A.8 - OTHER MALIGNANT NEUROENDOCRINE TUMORS; C7B.8 - OTHER SECONDARY NEUROENDOCRINE TUMORS Status: Chronic Current Visit: Yes (3) Left leg DVT SNOMED Code(s): 084065051 ICD Code: I82.402 - ACUTE EMBOLISM AND THOMBOS UNSP DEEP VEINS OF L LOW EXTREM Status: Acute Current Visit: Yes Qualifiers: Affected thrombotic vein of extremity: popliteal Chronicity: acute Qualified Code(s): I82.432 - Acute embolism and thrombosis of left popliteal vein Problem List Initiated/Reviewed/Updated: Yes Orders Last 24hrs: Active Orders 24 hr Category Date Time Status Patient Status Manage Transfer [TRANSFER] Routine ADT 10/30/17 20:11 Ordered Peripheral IV Care [RC] . DIRECTED Care 10/30/17 19:22 Active Lactated Ringers [Ringers, Lactated] 1,000 ml Med 10/30/17 19:22 Active IV BOLUS Sodium Chloride 0.9% [Saline Flush] Med 10/30/17 19:22 Active 10 ml FLUSH ASDIRECTED PRN Peripheral IV Insertion Adult [OM.PC] Urgent Oth 10/30/17 19:22 Ordered Resuscitation Status Routine Resus Stat 10/30/17 20:13 Ordered Medication Orders Lactated Ringer's (Ringers, Lactated) 1,000 mls @ 999 mls/hr IV BOLUS ONE Stop: 10/30/17 20:22 Last Admin: 10/30/17 19:25 Dose: 999 mls/hr Sodium Chloride (Saline Flush) 10 ml FLUSH ASDIRECTED PRN PRN Reason: Keep Vein Open Assessment/Plan Comment:: ASSESSMENT AND PLAN - Intractable nausea with vomiting - difficulty over the past month, difficulties presumed to be secondary to metastatic neuroendocrine tumor. She has had aggressive medication adjustments in the outpatient setting with significant difficulty and more so in the past few days. She is very dehydrated and unable to keep anything down. -IV fluids -Symptomatic management Stage IV Neuroendocine Cancer - poor prognosis, too sick for any sort of treatment at this time. Does have consultation planned with interventional radiology to consider therasphere treatment to the liver. Experimental chemotherapy denied by insurance company and appeal is pending at this time. Prognosis appears very poor with severity of symptoms and extent of disease. She has consulted with hospice and would like to have a family conference to discuss the potential treatment paths. -Symptomatic management as above -Hospice versus outpatient oncology follow-up Hypokalemia - mild at this time. Will need replacement via IV route since she is unable to keep anything down. -60 mEq of potassium overnight -Recheck in the morning Left popliteal DVT - diagnosed approximately one month ago. Currently receiving 0.5 mg/kg twice daily as recommended by oncology. -Enoxaparin 40 mg twice daily Maintenance issues - - DVT prophylaxis - enoxaparin - GI prophylaxis - PPI - Nutrition - clear liquids - Liz catheter - not indicated CODE STATUS - DNR/DNI Admission justification - This patient will be admitted for inpatient services and is medically appropriate meeting medical necessity for inpatient admission as outlined in my documentation. I reasonably expect the patient will require inpatient services that span a period time over 2 midnights. I reasonably expect this patient to be discharged or transferred within 96 hours after admission to the [facility]. Disposition - anticipate discharge home after the hospital stay Primary care physician - Dr Mariam Dangelo M.D.
[2017-10-30] MEDS ORDERED: Acetaminophen 650 MG Supp RECTAL PRN (20:49)
[2017-10-30] MEDS ORDERED: Acetaminophen 325 MG Tab PO PRN (20:49)
[2017-10-30] MEDS ORDERED: Pantoprazole 40 MG Vial IV ONE (20:49)
[2017-10-30] MEDS ORDERED: Promethazine 12.5 MG in Sodium Chloride 0.9% 50 ML IV PRN (20:49)
[2017-10-30] MEDS ORDERED: Ondansetron 4 MG/2 ML SDV IV PRN (20:49)
[2017-10-30] MEDS ORDERED: LORazepam 0.5 MG Tab PO PRN (20:49)
[2017-10-30] MEDS ORDERED: Albuterol 0.083% 2.5 MG/3 ML Neb Soln INH PRN (20:49)
[2017-10-30] MEDS ORDERED: HYDROmorphone 2 MG Tab PO SCH (20:49)
[2017-10-30] MEDS ORDERED: Potassium Chloride 20 MEQ, Lidocaine 1% 2 ML in Sodium Chloride 0.9% 100 ML IV SCH (20:49)
[2017-10-30] MEDS ORDERED: Ondansetron 4 MG Tab.DIS PO PRN (20:49)
[2017-10-30] MEDS: Sodium Chloride 0.9% 1,000 ML IV SCH (21:00)
[2017-10-30] MEDS: Enoxaparin 40 MG/0.4 ML Syringe SUBCUT SCH (21:46)
[2017-10-30] MEDS: HYDROmorphone 2 MG Tab PO SCH (21:47)
[2017-10-30] MEDS: Metoclopramide 10 MG Tab PO SCH (21:49)
[2017-10-30] MEDS: fentaNYL 25 MCG/HR Transdermal Patch TRDERM SCH (21:57)
[2017-10-30] MEDS: Magnesium Sulfate/Water 2 GM in Premix Bag 1 BAG IV SCH (22:00)
[2017-10-30] MEDS: Potassium Chloride 20 MEQ in Premix Bag 1 BAG IV SCH (22:25)
[2017-10-31] MEDS: Potassium Chloride 20 MEQ in Premix Bag 1 BAG IV SCH ×2 (00:45→02:46)
[2017-10-31] MEDS: HYDROmorphone 2 MG Tab PO SCH ×6 (01:53→21:08)
[2017-10-31] MEDS: Magnesium Sulfate/Water 2 GM in Premix Bag 1 BAG IV SCH ×2 (02:23→06:18)
[2017-10-31] MEDS: Sodium Chloride 0.9% 1,000 ML IV SCH ×2 (05:06→13:14)
[2017-10-31] MEDS: Folic Acid 1 MG Tab PO SCH (08:47)
[2017-10-31] MEDS: Enoxaparin 40 MG/0.4 ML Syringe SUBCUT SCH ×2 (08:48→21:13)
[2017-10-31] MEDS: CHECK FENTANYL TOP SCH ×2 (08:48→21:22)
[2017-10-31] MEDS: Metoclopramide 10 MG Tab PO SCH ×3 (08:49→21:13)
[2017-10-31] MEDS: Ondansetron 4 MG Tab.DIS PO PRN ×2 (13:03→20:29)
--- NOTE | 2017-10-31 14:26 | PCM.PN ---
- General Info Date of Service: 10/31/17 Functional Status: Reports: Pain Controlled - Review of Systems General: Denies: Fever Gastrointestinal: Reports: Nausea, Vomiting Systems Review Comment:: No acute events overnight but vomiting recurred today about noon. Long family conference discussing current situation and potential options. The infusion Center reported that the appeal for hepatic embolization and experimental chemotherapy have been denied. The patient and her family would like some time to think about potential treatment options at this point. Pain has been well- controlled. She has not had any fevers. More alert and interactive with some fluids overnight. - Patient Data Vitals - Most Recent: Last Vital Signs Temp 36.6 C 10/31/17 11:21 Pulse 99 10/31/17 11:21 Resp 12 10/31/17 11:21 BP 101/61 10/31/17 11:21 Pulse Ox 96 10/31/17 11:21 Weight - Most Recent: 79.832 kg I&O - Last 24 Hours: Intake & Output 10/30/17 10/31/17 10/31/17 22:59 06:59 14:59 Intake Total 150 1592 800 Output Total 300 50 450 Balance -150 1542 350 Lab Results Last 24 Hours: Laboratory Results - last 24 hr 10/30/17 10/31/17 Range/Units 20:14 05:48 Sodium 133 L (140-148) mmol/L Potassium 3.9 (3.6-5.2) mmol/L Chloride 101 (100-108) mmol/L Carbon Dioxide 25 (21-32) mmol/L Anion Gap 10.9 (5.0-14.0) mmol/L BUN 5 L (7-18) mg/dL Creatinine 0.7 (0.6-1.0) mg/dL Est Cr Clr Drug Dosing 83.50 mL/min Estimated GFR (MDRD) > 60 (>60) Glucose 107 H (74-106) mg/dL Calcium 8.7 (8.5-10.1) mg/dL Magnesium 1.6 L (1.8-2.4) mg/dL Med Orders - Current: Current Medications Acetaminophen (Tylenol) 650 mg PO Q4H PRN PRN Reason: Pain (Mild 1-3)/fever Acetaminophen (Tylenol) 650 mg RECTAL Q4H PRN PRN Reason: Mild pain/fever Albuterol (Proventil Neb Soln) 2.5 mg INH Q6H PRN PRN Reason: Dyspnea Enoxaparin Sodium (Lovenox) 40 mg SUBCUT Q12H [facility] Last Admin: 10/31/17 08:48 Dose: 40 mg Fentanyl (Duragesic) 25 mcg TRDERM Q72H [facility] Last Admin: 10/30/17 21:57 Dose: 25 mcg Folic Acid (Folic Acid) 1 mg PO DAILY [facility] Last Admin: 10/31/17 08:47 Dose: 1 mg Hydromorphone HCl (Dilaudid) 0.5 - 1 mg IVPUSH Q2H PRN PRN Reason: Pain (severe 7-10) Hydromorphone HCl (Dilaudid) 4 mg PO Q4H [facility] Last Admin: 10/31/17 13:12 Dose: 4 mg Promethazine HCl 12.5 mg/ (Sodium Chloride) 50.5 mls @ 200 mls/hr IV Q6H PRN PRN Reason: Nausea/Vomiting Sodium Chloride (Normal Saline) 1,000 mls @ 75 mls/hr IV ASDIRECTED [facility] Lorazepam (Ativan) 0.5 mg PO Q6HR PRN PRN Reason: Anxiety Lorazepam (Ativan) 0.5 - 1 mg IVPUSH Q4H PRN PRN Reason: Nausea/Vomiting Metoclopramide HCl (Reglan) 10 mg PO TID [facility] Last Admin: 10/31/17 13:11 Dose: 10 mg (Granisetron [ Sancuso] 3.1 Mg)*Pom * 3.1 mg TD Mo@0900 [facility] Check Fentanyl 25mcg (/Hr Patch) 1 each TOP BID [facility] Last Admin: 10/31/17 08:48 Dose: 1 each Granisetron Patch (Check) 1 each TOP DAILY [facility] Ondansetron HCl (Zofran Odt) 4 mg PO Q4H PRN PRN Reason: Nausea able to take PO Last Admin: 10/31/17 13:03 Dose: 4 mg Sodium Chloride (Saline Flush) 10 ml FLUSH ASDIRECTED PRN PRN Reason: Keep Vein Open Last Admin: 10/30/17 20:23 Dose: 10 ml Discontinued Medications Hydromorphone HCl (Dilaudid) 4 mg PO Q4H [facility] Last Admin: 10/30/17 22:59 Dose: Not Given Lactated Ringer's (Ringers, Lactated) 1,000 mls @ 999 mls/hr IV BOLUS ONE Stop: 10/30/17 20:22 Last Admin: 10/30/17 19:25 Dose: 999 mls/hr Magnesium Sulfate 2 gm/ Premix 50 mls @ 12.5 mls/hr IV Q4H [facility] Stop: 10/31/17 08:44 Last Admin: 10/31/17 06:18 Dose: 12.5 mls/hr Potassium Chloride 20 meq/Lidocaine HCl 2 ml/ Sodium Chloride 112 mls @ 50 mls/ hr IV Q2H [facility] Stop: 10/31/17 02:48 Last Admin: 10/30/17 22:59 Dose: Not Given Sodium Chloride (Normal Saline) 1,000 mls @ 125 mls/hr IV ASDIRECTED [facility] Last Admin: 10/31/17 13:14 Dose: 125 mls/hr Potassium Chloride 20 meq/ (Premix) 0 mls @ 50 mls/hr IV Q2H [facility] Stop: 10/31/17 02:01 Last Admin: 10/31/17 02:46 Dose: 50 mls/hr Lidocaine HCl (Xylocaine-Mpf 1%) 6 ml INJECT ONETIME ONE Stop: 10/30/17 21:55 Last Admin: 10/30/17 22:26 Dose: 6 ml Lidocaine HCl (Xylocaine-Mpf 1%) Confirm Administered Dose 5 ml .ROUTE .STK-MED ONE Stop: 10/31/17 02:34 Last Admin: 10/31/17 02:47 Dose: 5 ml Ondansetron HCl (Zofran Odt) 4 mg PO ONETIME ONE Stop: 10/30/17 18:39 Last Admin: 10/30/17 18:52 Dose: 4 mg Ondansetron HCl (Zofran Odt) 4 mg PO Q6H PRN PRN Reason: Nausea able to take PO Ondansetron HCl (Zofran) 4 mg IV Q6H PRN PRN Reason: Nausea/Vomiting Last Admin: 10/31/17 05:56 Dose: 4 mg Pantoprazole Sodium (Protonix Iv) 40 mg IV ONETIME ONE Stop: 10/30/17 20:50 Last Admin: 10/30/17 21:47 Dose: 40 mg - Exam Quality Assessment: No: Supplemental Oxygen General: Alert, Cooperative, No Acute Distress, Lethargic Neck: Supple Lungs: Normal Respiratory Effort GI/Abdominal Exam: Distended Extremities: Pedal Edema Skin: Warm, Dry Psy/Mental Status: Alert, Normal Affect - Problem List & Annotations (1) Nausea and vomiting SNOMED Code(s): 24158131 Code(s): R11.2 - NAUSEA WITH VOMITING, UNSPECIFIED Status: Acute Current Visit: Yes Qualifiers: Vomiting type: unspecified Vomiting Intractability: intractable Qualified Code(s): R11.2 - Nausea with vomiting, unspecified (2) Neuroendocrine carcinoma metastatic to multiple sites SNOMED Code(s): 702193927 Code(s): C7A.8 - OTHER MALIGNANT NEUROENDOCRINE TUMORS; C7B.8 - OTHER SECONDARY NEUROENDOCRINE TUMORS Status: Chronic Current Visit: Yes (3) Left leg DVT SNOMED Code(s): 667725978 Code(s): I82.402 - ACUTE EMBOLISM AND THOMBOS UNSP DEEP VEINS OF L LOW EXTREM Status: Acute Current Visit: Yes Qualifiers: Affected thrombotic vein of extremity: popliteal Chronicity: acute Qualified Code(s): I82.432 - Acute embolism and thrombosis of left popliteal vein - Problem List Review Problem List Initiated/Reviewed/Updated: Yes - My Orders Last 24 Hours: My Active Orders 10/30/17 20:13 Resuscitation Status Routine 10/30/17 20:49 Patient Status [ADT] Routine Bedrest Bedside Commode [RC] ASDIRECTED Intake and Output [RC] QSHIFT Notify Provider Vital Signs [RC] ASDIRECTED Oxygen Therapy [RC] PRN VTE/DVT Education [RC] Per Unit Routine Vital Signs [RC] Q4H Acetaminophen [Tylenol] 650 mg PO Q4H PRN Acetaminophen [Tylenol] 650 mg RECTAL Q4H PRN HYDROmorphone [Dilaudid] 0.5 - 1 mg IVPUSH Q2H PRN LORazepam [Ativan] 0.5 - 1 mg IVPUSH Q4H PRN Promethazine [Phenergan] 12.5 mg Sodium Chloride 0.9% [Normal Saline] 50 ml IV Q6H 10/30/17 21:00 HYDROmorphone [Dilaudid] 4 mg PO Q4H 10/31/17 09:00 Non-Formulary Medication [NF Drug] 1 each TOP BID Non-Formulary Medication [NF Drug] 1 each TOP DAILY 10/31/17 11:02 Ondansetron [Zofran ODT] 4 mg PO Q4H PRN 10/31/17 14:24 Dietary Supplements [RC] TIDMEALS 10/31/17 14:30 Sodium Chloride 0.9% [Normal Saline] 1,000 ml IV ASDIRECTED 10/31/17 Dinner Soft Diet [DIET] 11/01/17 05:00 BASIC METABOLIC PANEL,BMP [CHEM] Timed CBC W/O DIFF,HEMOGRAM [HEME] Timed (1) - Plan Plan:: ASSESSMENT AND PLAN - Intractable nausea with vomiting - difficulty over the past month, difficulties presumed to be secondary to metastatic neuroendocrine tumor. seems a little bit better today but still vomiting this afternoon. Hydration seems to be improving. -continue gentle IV fluids -Symptomatic management Stage IV Neuroendocine Cancer - poor prognosis, too sick for any sort of treatment at this time. apparently the interventional radiology procedure and experimental chemotherapy have been denied by insurance. Prognosis appears very poor with severity of symptoms and extent of disease. She has consulted with hospice and we had a long family conference today.gender family would like some more time to discuss options. -Symptomatic management as above -Hospice versus outpatient oncology follow-up Hypokalemia - improved with replacement. -Recheck in the morning Left popliteal DVT - diagnosed approximately one month ago. Currently receiving 0.5 mg/kg twice daily as recommended by oncology. -Enoxaparin 40 mg twice daily Maintenance issues - - DVT prophylaxis - enoxaparin - GI prophylaxis - PPI - Nutrition - clear liquids Disposition - anticipate discharge home after the hospital stay Liam Dangelo M.D.
[2017-10-31] MEDS: GRANISETRON 3.1 MG TD SCH (15:34)
[2017-10-31] MEDS: [UNRECOGNIZED DRUG - REMARK] TOP SCH (15:39)
[2017-11-01] MEDS: HYDROmorphone 2 MG Tab PO SCH ×6 (00:44→21:18)
[2017-11-01] MEDS: Ondansetron 4 MG Tab.DIS PO PRN (00:44)
[2017-11-01] MEDS: Scopolamine 1.5 MG Transdermal Patch TRDERM PRN (00:45)
[2017-11-01] MEDS: Sodium Chloride 0.9% 1,000 ML IV SCH ×2 (01:35→16:38)
[2017-11-01] MEDS: LORazepam 2 MG/ML MDV IVPUSH PRN (04:34)
[2017-11-01] MEDS: CHECK SCOPALAMINE PATCH TOP SCH ×2 (09:58→21:20)
[2017-11-01] MEDS: [UNRECOGNIZED DRUG - REMARK] TOP SCH (09:59)
[2017-11-01] MEDS: Folic Acid 1 MG Tab PO SCH (10:00)
[2017-11-01] MEDS: Enoxaparin 40 MG/0.4 ML Syringe SUBCUT SCH ×2 (10:00→21:19)
[2017-11-01] MEDS: Metoclopramide 10 MG Tab PO SCH ×3 (10:00→21:21)
--- NOTE | 2017-11-01 14:36 | PCM.PN ---
- General Info Date of Service: 11/01/17 Functional Status: Reports: Pain Controlled - Review of Systems General: Reports: Weakness Gastrointestinal: Reports: Nausea, Vomiting Neurological: Reports: Confusion Systems Review Comment:: some difficulty with nausea overnight and patient has been fairly sleepy this afternoon. She did go for a wheelchair ride with her family and also had a shower and was exhausted after this. Pain control during the day but less well controlled overnight which she has not been receiving as needed medications while sleeping. No major issues with nausea during the day. No fevers. Urine output on the low side despite continued IV fluids. - Patient Data Vitals - Most Recent: Last Vital Signs Temp 37.3 C 11/01/17 12:59 Pulse 105 H 11/01/17 12:59 Resp 7 L 11/01/17 12:59 BP 108/63 11/01/17 12:59 Pulse Ox 95 11/01/17 12:59 Weight - Most Recent: 79.832 kg I&O - Last 24 Hours: Intake & Output 10/31/17 11/01/17 11/01/17 22:59 06:59 14:59 Intake Total 240 Output Total 200 Balance -200 240 Lab Results Last 24 Hours: Laboratory Results - last 24 hr 11/01/17 11/01/17 Range/Units 06:04 06:04 WBC 7.3 (4.5-11.0) K/uL RBC 3.42 (3.30-5.50) M/uL Hgb 8.9 L (12.0-15.0) g/dL Hct 28.9 L (36.0-48.0) % MCV 85 (80-98) fL MCH 26 L (27-31) pg MCHC 31 L (32-36) % Plt Count 257 (150-400) K/uL Sodium 140 (140-148) mmol/L Potassium 3.8 (3.6-5.2) mmol/L Chloride 104 (100-108) mmol/L Carbon Dioxide 25 (21-32) mmol/L Anion Gap 11.2 (5.0-14.0) mmol/L BUN 4 L (7-18) mg/dL Creatinine 0.7 (0.6-1.0) mg/dL Est Cr Clr Drug Dosing 83.50 mL/min Estimated GFR (MDRD) > 60 (>60) Glucose 113 H (74-106) mg/dL Calcium 8.8 (8.5-10.1) mg/dL Med Orders - Current: Current Medications Acetaminophen (Tylenol) 650 mg PO Q4H PRN PRN Reason: Pain (Mild 1-3)/fever Acetaminophen (Tylenol) 650 mg RECTAL Q4H PRN PRN Reason: Mild pain/fever Albuterol (Proventil Neb Soln) 2.5 mg INH Q6H PRN PRN Reason: Dyspnea Enoxaparin Sodium (Lovenox) 40 mg SUBCUT Q12H REPLACED BY [facility] Last Admin: 11/01/17 10:00 Dose: 40 mg Fentanyl (Duragesic) 25 mcg TRDERM Q72H REPLACED BY [facility] Last Admin: 10/30/17 21:57 Dose: 25 mcg Folic Acid (Folic Acid) 1 mg PO DAILY REPLACED BY [facility] Last Admin: 11/01/17 10:00 Dose: 1 mg Hydromorphone HCl (Dilaudid) 0.5 - 1 mg IVPUSH Q2H PRN PRN Reason: Pain (severe 7-10) Hydromorphone HCl (Dilaudid) 4 mg PO Q4H REPLACED BY [facility] Last Admin: 11/01/17 14:29 Dose: 2 mg Promethazine HCl 12.5 mg/ (Sodium Chloride) 50.5 mls @ 200 mls/hr IV Q6H PRN PRN Reason: Nausea/Vomiting Sodium Chloride (Normal Saline) 1,000 mls @ 75 mls/hr IV ASDIRECTED REPLACED BY [facility] Last Admin: 11/01/17 01:35 Dose: 75 mls/hr Lorazepam (Ativan) 0.5 mg PO Q6HR PRN PRN Reason: Anxiety Lorazepam (Ativan) 0.5 - 1 mg IVPUSH Q4H PRN PRN Reason: Nausea/Vomiting Last Admin: 11/01/17 04:34 Dose: 0.5 mg Metoclopramide HCl (Reglan) 10 mg PO TID REPLACED BY [facility] Last Admin: 11/01/17 10:00 Dose: 10 mg Check Fentanyl 25mcg (/Hr Patch) 1 each TOP BID REPLACED BY [facility] Last Admin: 10/31/17 21:22 Dose: 1 each Granisetron Patch (Check) 1 each TOP DAILY REPLACED BY [facility] Last Admin: 11/01/17 09:59 Dose: Not Given (Granisetron [ Sancuso] 3.1 Mg)*Pom * 0 mg TD Tu@1600 REPLACED BY [facility] Last Admin: 10/31/17 15:34 Dose: 3.1 mg Check Scopalamine (Patch) 1 each TOP BID REPLACED BY [facility] Last Admin: 11/01/17 09:58 Dose: Not Given Ondansetron HCl (Zofran Odt) 4 mg PO Q4H PRN PRN Reason: Nausea able to take PO Last Admin: 11/01/17 00:44 Dose: 4 mg Scopolamine (Transderm-Scop) 1.5 mg TRDERM Q72H PRN PRN Reason: Nausea Last Admin: 11/01/17 00:45 Dose: 1.5 mg Sodium Chloride (Saline Flush) 10 ml FLUSH ASDIRECTED PRN PRN Reason: Keep Vein Open Last Admin: 10/30/17 20:23 Dose: 10 ml Discontinued Medications Hydromorphone HCl (Dilaudid) 4 mg PO Q4H REPLACED BY [facility] Last Admin: 10/30/17 22:59 Dose: Not Given Lactated Ringer's (Ringers, Lactated) 1,000 mls @ 999 mls/hr IV BOLUS ONE Stop: 10/30/17 20:22 Last Admin: 10/30/17 19:25 Dose: 999 mls/hr Magnesium Sulfate 2 gm/ Premix 50 mls @ 12.5 mls/hr IV Q4H REPLACED BY [facility] Stop: 10/31/17 08:44 Last Admin: 10/31/17 06:18 Dose: 12.5 mls/hr Potassium Chloride 20 meq/Lidocaine HCl 2 ml/ Sodium Chloride 112 mls @ 50 mls/ hr IV Q2H REPLACED BY [facility] Stop: 10/31/17 02:48 Last Admin: 10/30/17 22:59 Dose: Not Given Sodium Chloride (Normal Saline) 1,000 mls @ 125 mls/hr IV ASDIRECTED REPLACED BY [facility] Last Admin: 10/31/17 13:14 Dose: 125 mls/hr Potassium Chloride 20 meq/ (Premix) 0 mls @ 50 mls/hr IV Q2H REPLACED BY [facility] Stop: 10/31/17 02:01 Last Admin: 10/31/17 02:46 Dose: 50 mls/hr Lidocaine HCl (Xylocaine-Mpf 1%) 6 ml INJECT ONETIME ONE Stop: 10/30/17 21:55 Last Admin: 10/30/17 22:26 Dose: 6 ml Lidocaine HCl (Xylocaine-Mpf 1%) Confirm Administered Dose 5 ml .ROUTE .STK-MED ONE Stop: 10/31/17 02:34 Last Admin: 10/31/17 02:47 Dose: 5 ml Ondansetron HCl (Zofran Odt) 4 mg PO ONETIME ONE Stop: 10/30/17 18:39 Last Admin: 10/30/17 18:52 Dose: 4 mg Ondansetron HCl (Zofran Odt) 4 mg PO Q6H PRN PRN Reason: Nausea able to take PO Ondansetron HCl (Zofran) 4 mg IV Q6H PRN PRN Reason: Nausea/Vomiting Last Admin: 10/31/17 05:56 Dose: 4 mg Pantoprazole Sodium (Protonix Iv) 40 mg IV ONETIME ONE Stop: 10/30/17 20:50 Last Admin: 10/30/17 21:47 Dose: 40 mg - Exam Quality Assessment: No: Supplemental Oxygen General: Alert, Cooperative, No Acute Distress, Lethargic Lungs: Normal Respiratory Effort GI/Abdominal Exam: Distended Extremities: Pedal Edema Psy/Mental Status: Alert, Other (sleeping) - Problem List & Annotations (1) Nausea and vomiting SNOMED Code(s): 39867212 Code(s): R11.2 - NAUSEA WITH VOMITING, UNSPECIFIED Status: Acute Current Visit: Yes Qualifiers: Vomiting type: unspecified Vomiting Intractability: intractable Qualified Code(s): R11.2 - Nausea with vomiting, unspecified (2) Neuroendocrine carcinoma metastatic to multiple sites SNOMED Code(s): 269348109 Code(s): C7A.8 - OTHER MALIGNANT NEUROENDOCRINE TUMORS; C7B.8 - OTHER SECONDARY NEUROENDOCRINE TUMORS Status: Chronic Current Visit: Yes (3) Left leg DVT SNOMED Code(s): 668371568 Code(s): I82.402 - ACUTE EMBOLISM AND THOMBOS UNSP DEEP VEINS OF L LOW EXTREM Status: Acute Current Visit: Yes Qualifiers: Affected thrombotic vein of extremity: popliteal Chronicity: acute Qualified Code(s): I82.432 - Acute embolism and thrombosis of left popliteal vein - Problem List Review Problem List Initiated/Reviewed/Updated: Yes - My Orders Last 24 Hours: My Active Orders 10/31/17 14:24 Dietary Supplements [RC] TIDMEALS 10/31/17 14:30 Sodium Chloride 0.9% [Normal Saline] 1,000 ml IV ASDIRECTED 10/31/17 16:00 Granisetron [Sancuso] 0 mg TD Tu@1600 10/31/17 21:48 Scopolamine [Transderm-Scop] 1.5 mg TRDERM Q72H PRN 10/31/17 Dinner Soft Diet [DIET] 11/01/17 09:00 Non-Formulary Medication [NF Drug] 1 each TOP BID 11/01/17 21:00 Morphine [MS Contin] 30 mg PO BEDTIME - Plan Plan:: ASSESSMENT AND PLAN - Intractable nausea with vomiting - difficulty over the past month, difficulties presumed to be secondary to metastatic neuroendocrine tumor. symptoms seem worse at night and more tolerable during the day. Discussed with oncology, suspect extraordinarily high levels of hormones from the cancer contributing as well as some from the really enlarged liver. 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 Prognosis appears very poor with severity of symptoms and extent of disease. patient is not ready for hospice at this time and would like to continue receiving regular IV fluidsin the infusion Center. -Symptomatic management as above -Hospice versus outpatient oncology follow-up Hypokalemia - improved with replacement. -Recheck in the morning Left popliteal DVT - diagnosed approximately one month ago. Currently receiving 0.5 mg/kg twice daily as recommended by oncology. -Enoxaparin 40 mg twice daily Maintenance issues - - DVT prophylaxis - enoxaparin - GI prophylaxis - PPI - Nutrition - clear liquids Disposition - anticipate discharge home after the hospital stay, probably tomorrow Liam Dangelo M.D.
--- NOTE | 2017-11-01 14:44 | PCM.SN ---
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 She currently suffers from a metastatic neuroendocrine cancer with extensive liver involvement in addition to bone and lung metastases. When she lays down at night she has significant difficulty with nausea and vomiting because of the pressure the liver puts on her posterior abdomen when she is supine. She has tried extra pillows as well as a wedge at home without any improvement in symptoms. While hospitalized we have utilized elevation of the head of the bed to 30 or more and have had a notable improvement in her symptoms. I think that she would benefit from a hospital bed at home to help reduce these symptoms of nausea and vomiting at night. I believe that the bed would help improve her quality of life as well as reduce emergency room visits and hospital admissions. She will need to bed for the rest of her life with the cancer being inoperable and untreatable with chemotherapy or other therapies at this time. We have used a variety of different medications to help manage the symptoms without much improvement. Again we have seen a significant improvement in symptoms while using the mechanical hospital bed during the hospital stay. Liam Dangelo M.D.
[2017-11-01] MEDS ORDERED: Lidocaine 2% 30 ML, Alum Hydrox/Mag Hydrox/Simeth 30 ML, diphenhydrAMINE 75 MG PO PRN ×3 (14:55)
[2017-11-01] MEDS ORDERED: Dimethicone 20%/Zinc Oxide 25% 56 GM Spray Bottle TOP PRN (16:00)
[2017-11-01] MEDS: CHECK FENTANYL TOP SCH ×2 (16:26→21:20)
[2017-11-01] MEDS: Morphine 30 MG Tab.ER PO SCH (21:19)
[2017-11-02] MEDS: HYDROmorphone 2 MG Tab PO SCH ×7 (01:12→21:48)
[2017-11-02] MEDS: Sodium Chloride 0.9% 1,000 ML IV SCH ×2 (06:33→21:23)
[2017-11-02] MEDS: Folic Acid 1 MG Tab PO SCH (09:57)
[2017-11-02] MEDS: Enoxaparin 40 MG/0.4 ML Syringe SUBCUT SCH ×2 (09:57→21:54)
[2017-11-02] MEDS: CHECK SCOPALAMINE PATCH TOP SCH ×2 (09:58→21:55)
[2017-11-02] MEDS: CHECK FENTANYL TOP SCH ×2 (09:58→21:52)
[2017-11-02] MEDS: Metoclopramide 10 MG Tab PO SCH ×4 (09:59→21:55)
[2017-11-02] MEDS: [UNRECOGNIZED DRUG - REMARK] TOP SCH (09:59)
--- NOTE | 2017-11-02 11:19 | PCM.PN ---
- General Info Date of Service: 11/02/17 - Review of Systems General: Denies: Fever Systems Review Comment:: No acute events overnight and did sleep better per nursing report. Pain has been well-controlled. She is very lethargic this morning and unable to give much history. I did talk to both her and her daughter today. I expressed my concern that she is in the dying process at this point and they understand the severity of the situation. We had discussed going home today to continue outpatient cares but she is far too weak and far too ill to make the trip home. They do note that she has intermittent episodes of clarity but in general has been very sleepy. Urine output has not been very good despite IV fluids. - Patient Data Vitals - Most Recent: Last Vital Signs Temp 37.3 C 11/02/17 10:19 Pulse 102 H 11/02/17 10:19 Resp 16 11/02/17 10:19 BP 101/58 L 11/02/17 10:19 Pulse Ox 94 L 11/02/17 10:19 Weight - Most Recent: 79.832 kg I&O - Last 24 Hours: Intake & Output 11/01/17 11/02/17 11/02/17 22:59 06:59 14:59 Intake Total 954 804 Balance 954 804 Med Orders - Current: Current Medications Acetaminophen (Tylenol) 650 mg PO Q4H PRN PRN Reason: Pain (Mild 1-3)/fever Acetaminophen (Tylenol) 650 mg RECTAL Q4H PRN PRN Reason: Mild pain/fever Albuterol (Proventil Neb Soln) 2.5 mg INH Q6H PRN PRN Reason: Dyspnea Lidocaine HCl 30 ml/ Al Hydroxide/Mg Hydroxide 30 ml/Diphenhydramine HCl 75 mg 0 ml PO Q4H PRN PRN Reason: MOUTH CARE Dimethicone/Zinc Oxide (Rash Relief-Zinc Oxide [place]) 0 gm TOP ASDIRECTED PRN PRN Reason: Rash Enoxaparin Sodium (Lovenox) 40 mg SUBCUT Q12H [facility] Last Admin: 11/02/17 09:57 Dose: 40 mg Fentanyl (Duragesic) 25 mcg TRDERM Q72H [facility] Last Admin: 10/30/17 21:57 Dose: 25 mcg Folic Acid (Folic Acid) 1 mg PO DAILY [facility] Last Admin: 11/02/17 09:57 Dose: 1 mg Hydromorphone HCl (Dilaudid) 0.5 - 1 mg IVPUSH Q2H PRN PRN Reason: Pain (severe 7-10) Hydromorphone HCl (Dilaudid) 4 mg PO Q4H [facility] Last Admin: 11/02/17 09:56 Dose: 4 mg Promethazine HCl 12.5 mg/ (Sodium Chloride) 50.5 mls @ 200 mls/hr IV Q6H PRN PRN Reason: Nausea/Vomiting Sodium Chloride (Normal Saline) 1,000 mls @ 75 mls/hr IV ASDIRECTED [facility] Last Admin: 11/02/17 06:33 Dose: 75 mls/hr Lorazepam (Ativan) 0.5 mg PO Q6HR PRN PRN Reason: Anxiety Lorazepam (Ativan) 0.5 - 1 mg IVPUSH Q4H PRN PRN Reason: Nausea/Vomiting Last Admin: 11/01/17 04:34 Dose: 0.5 mg Metoclopramide HCl (Reglan) 10 mg PO TID [facility] Last Admin: 11/02/17 09:59 Dose: 10 mg Morphine Sulfate (Ms Contin) 30 mg PO BEDTIME [facility] Last Admin: 11/01/17 21:19 Dose: 30 mg Check Fentanyl 25mcg (/Hr Patch) 1 each TOP BID [facility] Last Admin: 11/02/17 09:58 Dose: 1 each Granisetron Patch (Check) 1 each TOP DAILY [facility] Last Admin: 11/02/17 09:59 Dose: 1 each (Granisetron [ Sancuso] 3.1 Mg)*Pom * 0 mg TD Tu@1600 [facility] Last Admin: 10/31/17 15:34 Dose: 3.1 mg Check Scopalamine (Patch) 1 each TOP BID [facility] Last Admin: 11/02/17 09:58 Dose: 1 each Ondansetron HCl (Zofran Odt) 4 mg PO Q4H PRN PRN Reason: Nausea able to take PO Last Admin: 11/01/17 00:44 Dose: 4 mg Scopolamine (Transderm-Scop) 1.5 mg TRDERM Q72H PRN PRN Reason: Nausea Last Admin: 11/01/17 00:45 Dose: 1.5 mg Sodium Chloride (Saline Flush) 10 ml FLUSH ASDIRECTED PRN PRN Reason: Keep Vein Open Last Admin: 10/30/17 20:23 Dose: 10 ml Discontinued Medications Hydromorphone HCl (Dilaudid) 4 mg PO Q4H [facility] Last Admin: 10/30/17 22:59 Dose: Not Given Lactated Ringer's (Ringers, Lactated) 1,000 mls @ 999 mls/hr IV BOLUS ONE Stop: 10/30/17 20:22 Last Admin: 10/30/17 19:25 Dose: 999 mls/hr Magnesium Sulfate 2 gm/ Premix 50 mls @ 12.5 mls/hr IV Q4H [facility] Stop: 10/31/17 08:44 Last Admin: 10/31/17 06:18 Dose: 12.5 mls/hr Potassium Chloride 20 meq/Lidocaine HCl 2 ml/ Sodium Chloride 112 mls @ 50 mls/ hr IV Q2H [facility] Stop: 10/31/17 02:48 Last Admin: 10/30/17 22:59 Dose: Not Given Sodium Chloride (Normal Saline) 1,000 mls @ 125 mls/hr IV ASDIRECTED [facility] Last Admin: 10/31/17 13:14 Dose: 125 mls/hr Potassium Chloride 20 meq/ (Premix) 0 mls @ 50 mls/hr IV Q2H [facility] Stop: 10/31/17 02:01 Last Admin: 10/31/17 02:46 Dose: 50 mls/hr Lidocaine HCl (Xylocaine-Mpf 1%) 6 ml INJECT ONETIME ONE Stop: 10/30/17 21:55 Last Admin: 10/30/17 22:26 Dose: 6 ml Lidocaine HCl (Xylocaine-Mpf 1%) Confirm Administered Dose 5 ml .ROUTE .STK-MED ONE Stop: 10/31/17 02:34 Last Admin: 10/31/17 02:47 Dose: 5 ml Ondansetron HCl (Zofran Odt) 4 mg PO ONETIME ONE Stop: 10/30/17 18:39 Last Admin: 10/30/17 18:52 Dose: 4 mg Ondansetron HCl (Zofran Odt) 4 mg PO Q6H PRN PRN Reason: Nausea able to take PO Ondansetron HCl (Zofran) 4 mg IV Q6H PRN PRN Reason: Nausea/Vomiting Last Admin: 10/31/17 05:56 Dose: 4 mg Pantoprazole Sodium (Protonix Iv) 40 mg IV ONETIME ONE Stop: 10/30/17 20:50 Last Admin: 10/30/17 21:47 Dose: 40 mg - Exam Quality Assessment: No: Supplemental Oxygen General: No Acute Distress, Lethargic. No: Alert Lungs: Normal Respiratory Effort Extremities: Pedal Edema Psy/Mental Status: No: Alert, Anxious - Problem List & Annotations (1) Nausea and vomiting SNOMED Code(s): 59773536 Code(s): R11.2 - NAUSEA WITH VOMITING, UNSPECIFIED Status: Acute Current Visit: Yes Qualifiers: Vomiting type: unspecified Vomiting Intractability: intractable Qualified Code(s): R11.2 - Nausea with vomiting, unspecified (2) Neuroendocrine carcinoma metastatic to multiple sites SNOMED Code(s): 770906764 Code(s): C7A.8 - OTHER MALIGNANT NEUROENDOCRINE TUMORS; C7B.8 - OTHER SECONDARY NEUROENDOCRINE TUMORS Status: Chronic Current Visit: Yes (3) Left leg DVT SNOMED Code(s): 920522173 Code(s): I82.402 - ACUTE EMBOLISM AND THOMBOS UNSP DEEP VEINS OF L LOW EXTREM Status: Acute Current Visit: Yes Qualifiers: Affected thrombotic vein of extremity: popliteal Chronicity: acute Qualified Code(s): I82.432 - Acute embolism and thrombosis of left popliteal vein - Problem List Review Problem List Initiated/Reviewed/Updated: Yes - My Orders Last 24 Hours: My Active Orders 11/01/17 14:55 Lidocaine 2% [Xylocaine 2% Viscous] 30 ml Alum Hydrox/Mag Hydrox/Simeth [Mag-Al Plus] 30 ml diphenhydrAMINE [Benadryl] 75 mg 10 ml PO Q4H 11/01/17 16:00 Dimethicone/Zinc Oxide [Rash Relief-Zinc Oxide [place]] 0 gm TOP ASDIRECTED PRN 11/01/17 21:00 Morphine [MS Contin] 30 mg PO BEDTIME - Plan Plan:: ASSESSMENT AND PLAN - Intractable nausea with vomiting - difficulty over the past month, difficulties presumed to be secondary to metastatic neuroendocrine tumor. Symptoms better during the day and worse at night though have been fairly well managed during the hospital stay. 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 Prognosis appears very poor with severity of symptoms and extent of disease. We had discussed discharge home with ongoing outpatient management but she is far too ill to make the trip home and her family is not able to take care of her in this condition. We will need to work on a discharge plan with options including long term placement versus comfort cares. -Ongoing family discussions regarding most appropriate path of care -Symptomatic management as above -Hospice versus outpatient oncology follow-up Left popliteal DVT - diagnosed approximately one month ago. Currently receiving 0.5 mg/kg twice daily as recommended by oncology. -Enoxaparin 40 mg twice daily Maintenance issues - - DVT prophylaxis - enoxaparin - GI prophylaxis - PPI - Nutrition - clear liquids Disposition - anticipate discharge home versus long term after the hospital stay Liam Dangelo M.D.
[2017-11-02] MEDS: HYDROmorphone 0.5 MG/0.5 ML Syringe IVPUSH PRN ×2 (17:33→22:02)
[2017-11-02] MEDS: LORazepam 2 MG/ML MDV IVPUSH PRN (19:44)
[2017-11-02] MEDS: fentaNYL 25 MCG/HR Transdermal Patch TRDERM SCH (21:49)
[2017-11-02] MEDS: Morphine 10 MG/0.5 ML Oral Syringe PO PRN (22:47)
[2017-11-02] MEDS: LORazepam ORAL Concentrate 1MG/0.5ML U/D PO PRN (23:31)
[2017-11-03] MEDS: Morphine 30 MG Tab.ER PO SCH (01:02)
[2017-11-03] MEDS: LORazepam ORAL Concentrate 1MG/0.5ML U/D PO PRN ×2 (02:51→04:54)
[2017-11-03] MEDS: Morphine 10 MG/0.5 ML Oral Syringe PO PRN ×6 (03:00→22:46)
[2017-11-03] MEDS: Folic Acid 1 MG Tab PO SCH (08:28)
[2017-11-03] MEDS: Metoclopramide 10 MG Tab PO SCH (08:29)
--- NOTE | 2017-11-03 10:22 | PCM.PN ---
- General Info Date of Service: 11/03/17 Functional Status: Reports: Pain Controlled - Review of Systems General: Denies: Fever Neurological: Reports: Confusion Systems Review Comment:: No acute events overnight but patient has been more somnolent and lethargic. Seems more confused with only a few more lucid episodes. Very lethargic today and does not answer any questions. Unable to take any pills and has been transitioned to be equal medicines. Low-grade temperatures. Discussed situation with family today and we are moving towards comfort cares. They are agreeable to having the IV removed but would like to continue the enoxaparin injections at this time because they think it will provide comfort by keeping the blood clot burden down. - Patient Data Vitals - Most Recent: Last Vital Signs Temp 37.2 C 11/03/17 08:48 Pulse 101 H 11/03/17 08:48 Resp 18 11/03/17 08:48 BP 79/43 L 11/03/17 08:48 Pulse Ox 95 11/03/17 08:48 Weight - Most Recent: 79.832 kg I&O - Last 24 Hours: Intake & Output 11/02/17 11/03/17 11/03/17 22:59 06:59 14:59 Intake Total 942 718 Output Total 20 Balance 942 718 -20 Med Orders - Current: Current Medications Acetaminophen (Tylenol) 650 mg PO Q4H PRN PRN Reason: Pain (Mild 1-3)/fever Acetaminophen (Tylenol) 650 mg RECTAL Q4H PRN PRN Reason: Mild pain/fever Last Admin: 11/03/17 00:30 Dose: 650 mg Albuterol (Proventil Neb Soln) 2.5 mg INH Q6H PRN PRN Reason: Dyspnea Lidocaine HCl 30 ml/ Al Hydroxide/Mg Hydroxide 30 ml/Diphenhydramine HCl 75 mg 0 ml PO Q4H PRN PRN Reason: MOUTH CARE Dimethicone/Zinc Oxide (Rash Relief-Zinc Oxide [place]) 0 gm TOP ASDIRECTED PRN PRN Reason: Rash Enoxaparin Sodium (Lovenox) 40 mg SUBCUT Q12H [facility] Last Admin: 11/02/17 21:54 Dose: 40 mg Fentanyl (Duragesic) 25 mcg TRDERM Q72H [facility] Last Admin: 11/02/17 21:49 Dose: 25 mcg Lorazepam (Ativan Oral Concentrate 1mg/0.5 Ml U/D) 1 mg PO Q2H PRN PRN Reason: Anxiety Last Admin: 11/03/17 04:54 Dose: 1 mg Morphine Sulfate (Morphine 10 Mg/0.5 Ml Oral Syringe) 10 mg PO Q2H PRN PRN Reason: Pain Last Admin: 11/03/17 07:48 Dose: 10 mg Check Fentanyl 25mcg (/Hr Patch) 1 each TOP BID [facility] Last Admin: 11/02/17 21:52 Dose: 1 each Granisetron Patch (Check) 1 each TOP DAILY [facility] Last Admin: 11/02/17 09:59 Dose: 1 each (Granisetron [ Sancuso] 3.1 Mg)*Pom * 0 mg TD Tu@1600 [facility] Last Admin: 10/31/17 15:34 Dose: 3.1 mg Check Scopalamine (Patch) 1 each TOP BID [facility] Last Admin: 11/02/17 21:55 Dose: 1 each Ondansetron HCl (Zofran Odt) 4 mg PO Q4H PRN PRN Reason: Nausea able to take PO Last Admin: 11/01/17 00:44 Dose: 4 mg Scopolamine (Transderm-Scop) 1.5 mg TRDERM Q72H PRN PRN Reason: Nausea Last Admin: 11/01/17 00:45 Dose: 1.5 mg Sodium Chloride (Saline Flush) 10 ml FLUSH ASDIRECTED PRN PRN Reason: Keep Vein Open Last Admin: 10/30/17 20:23 Dose: 10 ml Discontinued Medications Folic Acid (Folic Acid) 1 mg PO DAILY [facility] Last Admin: 11/03/17 08:28 Dose: Not Given Hydromorphone HCl (Dilaudid) 4 mg PO Q4H [facility] Last Admin: 10/30/17 22:59 Dose: Not Given Hydromorphone HCl (Dilaudid) 0.5 - 1 mg IVPUSH Q2H PRN PRN Reason: Pain (severe 7-10) Last Admin: 11/02/17 22:02 Dose: 0.5 mg Hydromorphone HCl (Dilaudid) 4 mg PO Q4H [facility] Last Admin: 11/02/17 21:48 Dose: Not Given Lactated Ringer's (Ringers, Lactated) 1,000 mls @ 999 mls/hr IV BOLUS ONE Stop: 10/30/17 20:22 Last Admin: 10/30/17 19:25 Dose: 999 mls/hr Magnesium Sulfate 2 gm/ Premix 50 mls @ 12.5 mls/hr IV Q4H [facility] Stop: 10/31/17 08:44 Last Admin: 10/31/17 06:18 Dose: 12.5 mls/hr Potassium Chloride 20 meq/Lidocaine HCl 2 ml/ Sodium Chloride 112 mls @ 50 mls/ hr IV Q2H [facility] Stop: 10/31/17 02:48 Last Admin: 10/30/17 22:59 Dose: Not Given Promethazine HCl 12.5 mg/ (Sodium Chloride) 50.5 mls @ 200 mls/hr IV Q6H PRN PRN Reason: Nausea/Vomiting Sodium Chloride (Normal Saline) 1,000 mls @ 125 mls/hr IV ASDIRECTED [facility] Last Admin: 10/31/17 13:14 Dose: 125 mls/hr Potassium Chloride 20 meq/ (Premix) 0 mls @ 50 mls/hr IV Q2H [facility] Stop: 10/31/17 02:01 Last Admin: 10/31/17 02:46 Dose: 50 mls/hr Sodium Chloride (Normal Saline) 1,000 mls @ 75 mls/hr IV ASDIRECTED [facility] Last Admin: 11/02/17 21:23 Dose: 75 mls/hr Lidocaine HCl (Xylocaine-Mpf 1%) 6 ml INJECT ONETIME ONE Stop: 10/30/17 21:55 Last Admin: 10/30/17 22:26 Dose: 6 ml Lidocaine HCl (Xylocaine-Mpf 1%) Confirm Administered Dose 5 ml .ROUTE .STK-MED ONE Stop: 10/31/17 02:34 Last Admin: 10/31/17 02:47 Dose: 5 ml Lorazepam (Ativan) 0.5 mg PO Q6HR PRN PRN Reason: Anxiety Lorazepam (Ativan) 0.5 - 1 mg IVPUSH Q4H PRN PRN Reason: Nausea/Vomiting Last Admin: 11/02/17 19:44 Dose: 0.5 mg Metoclopramide HCl (Reglan) 10 mg PO TID [facility] Last Admin: 11/03/17 08:29 Dose: Not Given Morphine Sulfate (Ms Contin) 30 mg PO BEDTIME [facility] Last Admin: 11/03/17 01:02 Dose: Not Given Ondansetron HCl (Zofran Odt) 4 mg PO ONETIME ONE Stop: 10/30/17 18:39 Last Admin: 10/30/17 18:52 Dose: 4 mg Ondansetron HCl (Zofran Odt) 4 mg PO Q6H PRN PRN Reason: Nausea able to take PO Ondansetron HCl (Zofran) 4 mg IV Q6H PRN PRN Reason: Nausea/Vomiting Last Admin: 10/31/17 05:56 Dose: 4 mg Pantoprazole Sodium (Protonix Iv) 40 mg IV ONETIME ONE Stop: 10/30/17 20:50 Last Admin: 10/30/17 21:47 Dose: 40 mg - Exam Quality Assessment: Supplemental Oxygen General: No Acute Distress. No: Alert Lungs: Normal Respiratory Effort Extremities: Pedal Edema Psy/Mental Status: Other (lethargic). No: Anxious - Problem List & Annotations (1) Nausea and vomiting SNOMED Code(s): 42595808 Code(s): R11.2 - NAUSEA WITH VOMITING, UNSPECIFIED Status: Acute Current Visit: Yes Qualifiers: Vomiting type: unspecified Vomiting Intractability: intractable Qualified Code(s): R11.2 - Nausea with vomiting, unspecified (2) Neuroendocrine carcinoma metastatic to multiple sites SNOMED Code(s): 161742342 Code(s): C7A.8 - OTHER MALIGNANT NEUROENDOCRINE TUMORS; C7B.8 - OTHER SECONDARY NEUROENDOCRINE TUMORS Status: Chronic Current Visit: Yes (3) Left leg DVT SNOMED Code(s): 238487384 Code(s): I82.402 - ACUTE EMBOLISM AND THOMBOS UNSP DEEP VEINS OF L LOW EXTREM Status: Acute Current Visit: Yes Qualifiers: Affected thrombotic vein of extremity: popliteal Chronicity: acute Qualified Code(s): I82.432 - Acute embolism and thrombosis of left popliteal vein - Problem List Review Problem List Initiated/Reviewed/Updated: Yes - My Orders Last 24 Hours: My Active Orders 11/02/17 22:22 Morphine [Morphine 10 MG/0.5 ML Oral Syringe] 10 mg PO Q2H PRN 11/02/17 22:24 LORazepam [Ativan ORAL Concentrate 1MG/0.5 ML U/D] 1 mg PO Q2H PRN 11/03/17 10:21 Peripheral IV Discontinue [OM.PC] Routine - Plan Plan:: ASSESSMENT AND PLAN - Stage IV Neuroendocine Cancer - patient has started the dying process at this time. She is very lethargic and unable to take any medications. She is too ill at this time to make any sort of a trip to home or even the snf. We are transitioning to comfort cares today. -Transition to comfort cares -Symptomatic management including aggressive pain and anxiety management Intractable nausea with vomiting - no significant issues with nausea or vomiting in the past 24 hours. -Discontinue IV fluids -Symptomatic management Left popliteal DVT - diagnosed approximately one month ago. Family would like to continue treatment at this time. -Enoxaparin 40 mg twice daily Maintenance issues - - DVT prophylaxis - enoxaparin - GI prophylaxis - PPI - Nutrition - clear liquids Disposition - the patient has entered the dying process and I would anticipate her in the next couple of days. Liam Dangelo M.D.
[2017-11-03] MEDS: CHECK FENTANYL TOP SCH ×2 (11:32→22:25)
[2017-11-03] MEDS: CHECK SCOPALAMINE PATCH TOP SCH ×2 (11:33→22:25)
[2017-11-03] MEDS: [UNRECOGNIZED DRUG - REMARK] TOP SCH (11:33)
[2017-11-03] MEDS: Enoxaparin 40 MG/0.4 ML Syringe SUBCUT SCH ×2 (15:18→21:16)
[2017-11-04] MEDS: Morphine 10 MG/0.5 ML Oral Syringe PO PRN ×6 (04:01→21:45)
[2017-11-04] MEDS: LORazepam ORAL Concentrate 1MG/0.5ML U/D PO PRN ×4 (04:01→20:25)
[2017-11-04] MEDS: CHECK SCOPALAMINE PATCH TOP SCH ×2 (09:15→20:25)
[2017-11-04] MEDS: Enoxaparin 40 MG/0.4 ML Syringe SUBCUT SCH (09:15)
[2017-11-04] MEDS: CHECK FENTANYL TOP SCH ×2 (09:15→20:24)
[2017-11-04] MEDS: [UNRECOGNIZED DRUG - REMARK] TOP SCH (09:16)
[2017-11-04] MEDS ORDERED: Dimethicone 20%/Zinc Oxide 25% 56 GM Spray Bottle TOP PRN (11:10)
--- NOTE | 2017-11-04 18:40 | PCM.PN ---
- General Info Date of Service: 11/04/17 Functional Status: Reports: Pain Controlled - Review of Systems Systems Review Comment:: No acute events overnight. Sleepy for the most part but intermittently awake and talking with family. Blood pressures remain on the low side and heart rate has been rising. Pain well-controlled per the family's evaluation. Patient is very sleepy and does not participate in the conversation today. - Patient Data Vitals - Most Recent: Last Vital Signs Temp 37.2 C 11/04/17 07:00 Pulse 121 H 11/04/17 07:00 Resp 12 11/04/17 07:00 BP 108/67 11/04/17 07:00 Pulse Ox 87 L 11/04/17 07:00 Weight - Most Recent: 79.832 kg I&O - Last 24 Hours: Intake & Output 11/04/17 11/04/17 11/04/17 06:59 14:59 22:59 Output Total 100 125 Balance -100 -125 Med Orders - Current: Current Medications Acetaminophen (Tylenol) 650 mg RECTAL Q4H PRN PRN Reason: Mild pain/fever Last Admin: 11/03/17 00:30 Dose: 650 mg Albuterol (Proventil Neb Soln) 2.5 mg INH Q6H PRN PRN Reason: Dyspnea Lidocaine HCl 30 ml/ Al Hydroxide/Mg Hydroxide 30 ml/Diphenhydramine HCl 75 mg 0 ml PO Q4H PRN PRN Reason: MOUTH CARE Dimethicone/Zinc Oxide (Rash Relief-Zinc Oxide Max) 0 gm TOP ASDIRECTED PRN PRN Reason: Rash Last Admin: 11/04/17 12:19 Dose: 1 spray Dimethicone/Zinc Oxide (Rash Relief-Zinc Oxide Max) 0 gm TOP ASDIRECTED PRN PRN Reason: Rash Enoxaparin Sodium (Lovenox) 40 mg SUBCUT Q12H [facility] Last Admin: 11/04/17 09:15 Dose: Not Given Fentanyl (Duragesic) 25 mcg TRDERM Q72H [facility] Last Admin: 11/02/17 21:49 Dose: 25 mcg Lorazepam (Ativan Oral Concentrate 1mg/0.5 Ml U/D) 1 mg PO Q2H PRN PRN Reason: Anxiety Last Admin: 11/04/17 16:31 Dose: 1 mg Morphine Sulfate (Morphine 10 Mg/0.5 Ml Oral Syringe) 10 mg PO Q2H PRN PRN Reason: Pain Last Admin: 11/04/17 17:27 Dose: 10 mg Check Fentanyl 25mcg (/Hr Patch) 1 each TOP BID [facility] Last Admin: 11/04/17 09:15 Dose: Not Given Granisetron Patch (Check) 1 each TOP DAILY [facility] Last Admin: 11/04/17 09:16 Dose: Not Given (Granisetron [ Sancuso] 3.1 Mg)*Pom * 0 mg TD Tu@1600 [facility] Last Admin: 10/31/17 15:34 Dose: 3.1 mg Check Scopalamine (Patch) 1 each TOP BID [facility] Last Admin: 11/04/17 09:15 Dose: Not Given Ondansetron HCl (Zofran Odt) 4 mg PO Q4H PRN PRN Reason: Nausea able to take PO Last Admin: 11/01/17 00:44 Dose: 4 mg Scopolamine (Transderm-Scop) 1.5 mg TRDERM Q72H PRN PRN Reason: Nausea Last Admin: 11/01/17 00:45 Dose: 1.5 mg Sodium Chloride (Saline Flush) 10 ml FLUSH ASDIRECTED PRN PRN Reason: Keep Vein Open Last Admin: 10/30/17 20:23 Dose: 10 ml Discontinued Medications Acetaminophen (Tylenol) 650 mg PO Q4H PRN PRN Reason: Pain (Mild 1-3)/fever Folic Acid (Folic Acid) 1 mg PO DAILY [facility] Last Admin: 11/03/17 08:28 Dose: Not Given Hydromorphone HCl (Dilaudid) 4 mg PO Q4H [facility] Last Admin: 10/30/17 22:59 Dose: Not Given Hydromorphone HCl (Dilaudid) 0.5 - 1 mg IVPUSH Q2H PRN PRN Reason: Pain (severe 7-10) Last Admin: 11/02/17 22:02 Dose: 0.5 mg Hydromorphone HCl (Dilaudid) 4 mg PO Q4H [facility] Last Admin: 11/02/17 21:48 Dose: Not Given Lactated Ringer's (Ringers, Lactated) 1,000 mls @ 999 mls/hr IV BOLUS ONE Stop: 10/30/17 20:22 Last Admin: 10/30/17 19:25 Dose: 999 mls/hr Magnesium Sulfate 2 gm/ Premix 50 mls @ 12.5 mls/hr IV Q4H [facility] Stop: 10/31/17 08:44 Last Admin: 10/31/17 06:18 Dose: 12.5 mls/hr Potassium Chloride 20 meq/Lidocaine HCl 2 ml/ Sodium Chloride 112 mls @ 50 mls/ hr IV Q2H [facility] Stop: 10/31/17 02:48 Last Admin: 10/30/17 22:59 Dose: Not Given Promethazine HCl 12.5 mg/ (Sodium Chloride) 50.5 mls @ 200 mls/hr IV Q6H PRN PRN Reason: Nausea/Vomiting Sodium Chloride (Normal Saline) 1,000 mls @ 125 mls/hr IV ASDIRECTED [facility] Last Admin: 10/31/17 13:14 Dose: 125 mls/hr Potassium Chloride 20 meq/ (Premix) 0 mls @ 50 mls/hr IV Q2H [facility] Stop: 10/31/17 02:01 Last Admin: 10/31/17 02:46 Dose: 50 mls/hr Sodium Chloride (Normal Saline) 1,000 mls @ 75 mls/hr IV ASDIRECTED [facility] Last Admin: 11/02/17 21:23 Dose: 75 mls/hr Lidocaine HCl (Xylocaine-Mpf 1%) 6 ml INJECT ONETIME ONE Stop: 10/30/17 21:55 Last Admin: 10/30/17 22:26 Dose: 6 ml Lidocaine HCl (Xylocaine-Mpf 1%) Confirm Administered Dose 5 ml .ROUTE .STK-MED ONE Stop: 10/31/17 02:34 Last Admin: 10/31/17 02:47 Dose: 5 ml Lorazepam (Ativan) 0.5 mg PO Q6HR PRN PRN Reason: Anxiety Lorazepam (Ativan) 0.5 - 1 mg IVPUSH Q4H PRN PRN Reason: Nausea/Vomiting Last Admin: 11/02/17 19:44 Dose: 0.5 mg Metoclopramide HCl (Reglan) 10 mg PO TID [facility] Last Admin: 11/03/17 08:29 Dose: Not Given Morphine Sulfate (Ms Contin) 30 mg PO BEDTIME [facility] Last Admin: 11/03/17 01:02 Dose: Not Given Ondansetron HCl (Zofran Odt) 4 mg PO ONETIME ONE Stop: 10/30/17 18:39 Last Admin: 10/30/17 18:52 Dose: 4 mg Ondansetron HCl (Zofran Odt) 4 mg PO Q6H PRN PRN Reason: Nausea able to take PO Ondansetron HCl (Zofran) 4 mg IV Q6H PRN PRN Reason: Nausea/Vomiting Last Admin: 10/31/17 05:56 Dose: 4 mg Pantoprazole Sodium (Protonix Iv) 40 mg IV ONETIME ONE Stop: 10/30/17 20:50 Last Admin: 10/30/17 21:47 Dose: 40 mg - Exam Quality Assessment: No: Supplemental Oxygen General: No Acute Distress, Lethargic. No: Alert Lungs: Normal Respiratory Effort Extremities: Pedal Edema - Problem List & Annotations (1) Nausea and vomiting SNOMED Code(s): 45110684 Code(s): R11.2 - NAUSEA WITH VOMITING, UNSPECIFIED Status: Acute Current Visit: Yes Qualifiers: Vomiting type: unspecified Vomiting Intractability: intractable Qualified Code(s): R11.2 - Nausea with vomiting, unspecified (2) Neuroendocrine carcinoma metastatic to multiple sites SNOMED Code(s): 284191601 Code(s): C7A.8 - OTHER MALIGNANT NEUROENDOCRINE TUMORS; C7B.8 - OTHER SECONDARY NEUROENDOCRINE TUMORS Status: Chronic Current Visit: Yes (3) Left leg DVT SNOMED Code(s): 738364991 Code(s): I82.402 - ACUTE EMBOLISM AND THOMBOS UNSP DEEP VEINS OF L LOW EXTREM Status: Acute Current Visit: Yes Qualifiers: Affected thrombotic vein of extremity: popliteal Chronicity: acute Qualified Code(s): I82.432 - Acute embolism and thrombosis of left popliteal vein - Problem List Review Problem List Initiated/Reviewed/Updated: Yes - My Orders Last 24 Hours: My Active Orders 11/04/17 11:10 Dimethicone/Zinc Oxide [Rash Relief-Zinc Oxide Max] 0 gm TOP ASDIRECTED PRN - Plan Plan:: ASSESSMENT AND PLAN - Stage IV Neuroendocine Cancer - patient has started the dying process at this time. She is very lethargic and unable to take any medications. She is too ill at this time to make any sort of a trip to home or even the [place] [facility]. Symptoms well controlled at this time. -Continue comfort cares -Symptomatic management including aggressive pain and anxiety management Intractable nausea with vomiting - no significant issues with nausea or vomiting in the past 24 hours. -Symptomatic management Left popliteal DVT - diagnosed approximately one month ago. Family would like to continue treatment at this time. -Discontinue Lanoxin apparent Maintenance issues - - DVT prophylaxis - comfort cares - GI prophylaxis - comfort cares - Nutrition - clear liquids Disposition - the patient has entered the dying process and I would anticipate her in the next couple of days. Liam Dangelo M.D.
[2017-11-05] MEDS: LORazepam ORAL Concentrate 1MG/0.5ML U/D PO PRN ×5 (03:28→22:17)
[2017-11-05] MEDS: Morphine 10 MG/0.5 ML Oral Syringe PO PRN ×5 (03:29→22:14)
[2017-11-05] MEDS: CHECK SCOPALAMINE PATCH TOP SCH ×2 (09:23→21:15)
[2017-11-05] MEDS: [UNRECOGNIZED DRUG - REMARK] TOP SCH (09:23)
[2017-11-05] MEDS: CHECK FENTANYL TOP SCH ×2 (09:25→21:15)
--- NOTE | 2017-11-05 12:14 | PCM.PN ---
- General Info Date of Service: 11/05/17 - Review of Systems General: Denies: Fever Systems Review Comment:: No acute events overnight. She has been stable and sleeps the vast majority of the day. Does get up to go to the bathroom but is only awake for a very limited time. Pain has been well-controlled. Heart rate has been increasing. Urine output has been quite low. Family requesting to use home supply of octreotide to help manage flushing and excess salivation and tearing. - Patient Data Vitals - Most Recent: Last Vital Signs Temp 37.2 C 11/05/17 11:00 Pulse 118 H 11/05/17 11:00 Resp 12 11/05/17 11:00 BP 100/47 L 11/05/17 11:00 Pulse Ox 89 L 11/05/17 11:00 Weight - Most Recent: 79.832 kg I&O - Last 24 Hours: Intake & Output 11/04/17 11/05/17 11/05/17 22:59 06:59 14:59 Intake Total 60 Output Total 175 50 Balance -115 -50 Med Orders - Current: Current Medications Acetaminophen (Tylenol) 650 mg RECTAL Q4H PRN PRN Reason: Mild pain/fever Last Admin: 11/03/17 00:30 Dose: 650 mg Albuterol (Proventil Neb Soln) 2.5 mg INH Q6H PRN PRN Reason: Dyspnea Lidocaine HCl 30 ml/ Al Hydroxide/Mg Hydroxide 30 ml/Diphenhydramine HCl 75 mg 0 ml PO Q4H PRN PRN Reason: MOUTH CARE Dimethicone/Zinc Oxide (Rash Relief-Zinc Oxide [place]) 0 gm TOP ASDIRECTED PRN PRN Reason: Rash Last Admin: 11/04/17 12:19 Dose: 1 spray Dimethicone/Zinc Oxide (Rash Relief-Zinc Oxide [place]) 0 gm TOP ASDIRECTED PRN PRN Reason: Rash Fentanyl (Duragesic) 25 mcg TRDERM Q72H [facility] Last Admin: 11/02/17 21:49 Dose: 25 mcg Lorazepam (Ativan Oral Concentrate 1mg/0.5 Ml U/D) 1 mg PO Q2H PRN PRN Reason: Anxiety Last Admin: 11/05/17 10:45 Dose: 1 mg Morphine Sulfate (Morphine 10 Mg/0.5 Ml Oral Syringe) 10 mg PO Q2H PRN PRN Reason: Pain Last Admin: 11/05/17 09:20 Dose: 10 mg Check Fentanyl 25mcg (/Hr Patch) 1 each TOP BID [facility] Last Admin: 11/05/17 09:25 Dose: Not Given Granisetron Patch (Check) 1 each TOP DAILY [facility] Last Admin: 11/05/17 09:23 Dose: Not Given (Granisetron [ Sancuso] 3.1 Mg)*Pom * 0 mg TD Tu@1600 [facility] Last Admin: 10/31/17 15:34 Dose: 3.1 mg Check Scopalamine (Patch) 1 each TOP BID [facility] Last Admin: 11/05/17 09:23 Dose: Not Given Ondansetron HCl (Zofran Odt) 4 mg PO Q4H PRN PRN Reason: Nausea able to take PO Last Admin: 11/01/17 00:44 Dose: 4 mg Scopolamine (Transderm-Scop) 1.5 mg TRDERM Q72H PRN PRN Reason: Nausea Last Admin: 11/01/17 00:45 Dose: 1.5 mg Sodium Chloride (Saline Flush) 10 ml FLUSH ASDIRECTED PRN PRN Reason: Keep Vein Open Last Admin: 10/30/17 20:23 Dose: 10 ml Discontinued Medications Acetaminophen (Tylenol) 650 mg PO Q4H PRN PRN Reason: Pain (Mild 1-3)/fever Enoxaparin Sodium (Lovenox) 40 mg SUBCUT Q12H [facility] Last Admin: 11/04/17 09:15 Dose: Not Given Folic Acid (Folic Acid) 1 mg PO DAILY [facility] Last Admin: 11/03/17 08:28 Dose: Not Given Hydromorphone HCl (Dilaudid) 4 mg PO Q4H [facility] Last Admin: 10/30/17 22:59 Dose: Not Given Hydromorphone HCl (Dilaudid) 0.5 - 1 mg IVPUSH Q2H PRN PRN Reason: Pain (severe 7-10) Last Admin: 11/02/17 22:02 Dose: 0.5 mg Hydromorphone HCl (Dilaudid) 4 mg PO Q4H [facility] Last Admin: 11/02/17 21:48 Dose: Not Given Lactated Ringer's (Ringers, Lactated) 1,000 mls @ 999 mls/hr IV BOLUS ONE Stop: 10/30/17 20:22 Last Admin: 10/30/17 19:25 Dose: 999 mls/hr Magnesium Sulfate 2 gm/ Premix 50 mls @ 12.5 mls/hr IV Q4H [facility] Stop: 10/31/17 08:44 Last Admin: 10/31/17 06:18 Dose: 12.5 mls/hr Potassium Chloride 20 meq/Lidocaine HCl 2 ml/ Sodium Chloride 112 mls @ 50 mls/ hr IV Q2H [facility] Stop: 10/31/17 02:48 Last Admin: 10/30/17 22:59 Dose: Not Given Promethazine HCl 12.5 mg/ (Sodium Chloride) 50.5 mls @ 200 mls/hr IV Q6H PRN PRN Reason: Nausea/Vomiting Sodium Chloride (Normal Saline) 1,000 mls @ 125 mls/hr IV ASDIRECTED [facility] Last Admin: 10/31/17 13:14 Dose: 125 mls/hr Potassium Chloride 20 meq/ (Premix) 0 mls @ 50 mls/hr IV Q2H [facility] Stop: 10/31/17 02:01 Last Admin: 10/31/17 02:46 Dose: 50 mls/hr Sodium Chloride (Normal Saline) 1,000 mls @ 75 mls/hr IV ASDIRECTED [facility] Last Admin: 11/02/17 21:23 Dose: 75 mls/hr Lidocaine HCl (Xylocaine-Mpf 1%) 6 ml INJECT ONETIME ONE Stop: 10/30/17 21:55 Last Admin: 10/30/17 22:26 Dose: 6 ml Lidocaine HCl (Xylocaine-Mpf 1%) Confirm Administered Dose 5 ml .ROUTE .STK-MED ONE Stop: 10/31/17 02:34 Last Admin: 10/31/17 02:47 Dose: 5 ml Lorazepam (Ativan) 0.5 mg PO Q6HR PRN PRN Reason: Anxiety Lorazepam (Ativan) 0.5 - 1 mg IVPUSH Q4H PRN PRN Reason: Nausea/Vomiting Last Admin: 11/02/17 19:44 Dose: 0.5 mg Metoclopramide HCl (Reglan) 10 mg PO TID [facility] Last Admin: 11/03/17 08:29 Dose: Not Given Morphine Sulfate (Ms Contin) 30 mg PO BEDTIME [facility] Last Admin: 11/03/17 01:02 Dose: Not Given Ondansetron HCl (Zofran Odt) 4 mg PO ONETIME ONE Stop: 10/30/17 18:39 Last Admin: 10/30/17 18:52 Dose: 4 mg Ondansetron HCl (Zofran Odt) 4 mg PO Q6H PRN PRN Reason: Nausea able to take PO Ondansetron HCl (Zofran) 4 mg IV Q6H PRN PRN Reason: Nausea/Vomiting Last Admin: 10/31/17 05:56 Dose: 4 mg Pantoprazole Sodium (Protonix Iv) 40 mg IV ONETIME ONE Stop: 10/30/17 20:50 Last Admin: 10/30/17 21:47 Dose: 40 mg - Exam Quality Assessment: Supplemental Oxygen General: No Acute Distress. No: Alert Lungs: Normal Respiratory Effort Extremities: Pedal Edema Psy/Mental Status: No: Alert, Anxious - Problem List & Annotations (1) Nausea and vomiting SNOMED Code(s): 57715018 Code(s): R11.2 - NAUSEA WITH VOMITING, UNSPECIFIED Status: Acute Current Visit: Yes Qualifiers: Vomiting type: unspecified Vomiting Intractability: intractable Qualified Code(s): R11.2 - Nausea with vomiting, unspecified (2) Neuroendocrine carcinoma metastatic to multiple sites SNOMED Code(s): 909207485 Code(s): C7A.8 - OTHER MALIGNANT NEUROENDOCRINE TUMORS; C7B.8 - OTHER SECONDARY NEUROENDOCRINE TUMORS Status: Chronic Current Visit: Yes (3) Left leg DVT SNOMED Code(s): 509726017 Code(s): I82.402 - ACUTE EMBOLISM AND THOMBOS UNSP DEEP VEINS OF L LOW EXTREM Status: Acute Current Visit: Yes Qualifiers: Affected thrombotic vein of extremity: popliteal Chronicity: acute Qualified Code(s): I82.432 - Acute embolism and thrombosis of left popliteal vein - Problem List Review Problem List Initiated/Reviewed/Updated: Yes - My Orders Last 24 Hours: My Active Orders 11/05/17 12:12 Resuscitation Status Routine 11/05/17 14:00 Octreotide [SandoSTATIN] 100 mcg SUBCUT TID - Plan Plan:: ASSESSMENT AND PLAN - Stage IV Neuroendocine Cancer - patient has started the dying process at this time. She is very lethargic and unable to take any medications. She is too ill at this time to make any sort of a trip to home or even the long term. Symptoms well controlled at this time. -Continue comfort cares -Okay to use octreotide from family supply -Symptomatic management including aggressive pain and anxiety management Intractable nausea with vomiting - no significant issues with nausea or vomiting in the past 24 hours. -Symptomatic management Left popliteal DVT - diagnosed approximately one month ago. Family would like to continue treatment at this time. -Discontinue enoxaparin Maintenance issues - - DVT prophylaxis - comfort cares - GI prophylaxis - comfort cares - Nutrition - clear liquids Disposition - the patient has entered the dying process and I would anticipate her in the next couple of days. Liam Dangelo M.D.
[2017-11-05] MEDS: OCTREOTIDE 100 MCG/ML SUBCUT SCH ×2 (13:00→21:04)
[2017-11-05] MEDS ORDERED: fentaNYL 25 MCG/HR Transdermal Patch ONE (21:11)
[2017-11-05] MEDS: fentaNYL 25 MCG/HR Transdermal Patch TRDERM SCH (21:14)
[2017-11-06] MEDS: LORazepam ORAL Concentrate 1MG/0.5ML U/D PO PRN ×8 (00:41→20:13)
[2017-11-06] MEDS: Morphine 10 MG/0.5 ML Oral Syringe PO PRN ×7 (04:44→20:53)
[2017-11-06] MEDS ORDERED: GRANISETRON 3.1 MG TD SCH (09:00)
[2017-11-06] MEDS: CHECK FENTANYL TOP SCH ×2 (10:36→20:24)
[2017-11-06] MEDS: CHECK SCOPALAMINE PATCH TOP SCH ×2 (10:37→20:25)
[2017-11-06] MEDS: [UNRECOGNIZED DRUG - REMARK] TOP SCH (10:37)
[2017-11-06] MEDS: OCTREOTIDE 100 MCG/ML SUBCUT SCH ×3 (10:59→21:47)
--- NOTE | 2017-11-06 15:08 | PCM.PN ---
- General Info Date of Service: 11/06/17 Subjective Update: Nettie is currently hospitalized for management of pain secondary to her end-stage neuroendocrine tumor. She is currently on comfort cares only and has been receiving morphine and lorazepam as needed for comfort. Family is at her bedside , they feel that she is been very comfortable over the past 24 hours. She is currently sedated and unable to provide significant information concerning symptoms or review of systems. - Patient Data Vitals - Most Recent: Last Vital Signs Temp 99.4 F 11/06/17 09:52 Pulse 113 H 11/06/17 09:52 Resp 12 11/06/17 09:52 BP 100/56 L 11/06/17 09:52 Pulse Ox 87 L 11/06/17 09:52 Weight - Most Recent: 176 lb I&O - Last 24 Hours: Intake & Output 11/06/17 11/06/17 11/06/17 06:59 14:59 22:59 Output Total 150 Balance -150 Med Orders - Current: Current Medications Acetaminophen (Tylenol) 650 mg RECTAL Q4H PRN PRN Reason: Mild pain/fever Last Admin: 11/03/17 00:30 Dose: 650 mg Albuterol (Proventil Neb Soln) 2.5 mg INH Q6H PRN PRN Reason: Dyspnea Lidocaine HCl 30 ml/ Al Hydroxide/Mg Hydroxide 30 ml/Diphenhydramine HCl 75 mg 0 ml PO Q4H PRN PRN Reason: MOUTH CARE Dimethicone/Zinc Oxide (Rash Relief-Zinc Oxide [place]) 0 gm TOP ASDIRECTED PRN PRN Reason: Rash Last Admin: 11/04/17 12:19 Dose: 1 spray Fentanyl (Duragesic) 25 mcg TRDERM Q72H [facility] Last Admin: 11/05/17 21:14 Dose: 25 mcg Lorazepam (Ativan Oral Concentrate 1mg/0.5 Ml U/D) 1 mg PO Q2H PRN PRN Reason: Anxiety Last Admin: 11/06/17 13:33 Dose: 1 mg Morphine Sulfate (Morphine 10 Mg/0.5 Ml Oral Syringe) 10 mg PO Q2H PRN PRN Reason: Pain Last Admin: 11/06/17 14:45 Dose: 10 mg Check Fentanyl 25mcg (/Hr Patch) 1 each TOP BID [facility] Last Admin: 11/06/17 10:36 Dose: Not Given Granisetron Patch (Check) 1 each TOP DAILY [facility] Last Admin: 11/06/17 10:37 Dose: Not Given (Granisetron [ Sancuso] 3.1 Mg)*Pom * 0 mg TD Tu@1600 [facility] Last Admin: 10/31/17 15:34 Dose: 3.1 mg Check Scopalamine (Patch) 1 each TOP BID [facility] Last Admin: 11/06/17 10:37 Dose: Not Given Octreotide Acetate (Sandostatin) 100 mcg SUBCUT TID [facility] Last Admin: 11/06/17 14:45 Dose: 100 mcg Ondansetron HCl (Zofran Odt) 4 mg PO Q4H PRN PRN Reason: Nausea able to take PO Last Admin: 11/01/17 00:44 Dose: 4 mg Scopolamine (Transderm-Scop) 1.5 mg TRDERM Q72H PRN PRN Reason: Nausea Last Admin: 11/01/17 00:45 Dose: 1.5 mg Sodium Chloride (Saline Flush) 10 ml FLUSH ASDIRECTED PRN PRN Reason: Keep Vein Open Last Admin: 10/30/17 20:23 Dose: 10 ml Discontinued Medications Acetaminophen (Tylenol) 650 mg PO Q4H PRN PRN Reason: Pain (Mild 1-3)/fever Enoxaparin Sodium (Lovenox) 40 mg SUBCUT Q12H [facility] Last Admin: 11/04/17 09:15 Dose: Not Given Fentanyl (Duragesic) Confirm Administered Dose 25 mcg .ROUTE .STK-MED ONE Stop: 11/05/17 21:12 Last Admin: 11/05/17 21:16 Dose: Not Given Folic Acid (Folic Acid) 1 mg PO DAILY [facility] Last Admin: 11/03/17 08:28 Dose: Not Given Hydromorphone HCl (Dilaudid) 4 mg PO Q4H [facility] Last Admin: 10/30/17 22:59 Dose: Not Given Hydromorphone HCl (Dilaudid) 0.5 - 1 mg IVPUSH Q2H PRN PRN Reason: Pain (severe 7-10) Last Admin: 11/02/17 22:02 Dose: 0.5 mg Hydromorphone HCl (Dilaudid) 4 mg PO Q4H [facility] Last Admin: 11/02/17 21:48 Dose: Not Given Lactated Ringer's (Ringers, Lactated) 1,000 mls @ 999 mls/hr IV BOLUS ONE Stop: 10/30/17 20:22 Last Admin: 10/30/17 19:25 Dose: 999 mls/hr Magnesium Sulfate 2 gm/ Premix 50 mls @ 12.5 mls/hr IV Q4H [facility] Stop: 10/31/17 08:44 Last Admin: 10/31/17 06:18 Dose: 12.5 mls/hr Potassium Chloride 20 meq/Lidocaine HCl 2 ml/ Sodium Chloride 112 mls @ 50 mls/ hr IV Q2H [facility] Stop: 10/31/17 02:48 Last Admin: 10/30/17 22:59 Dose: Not Given Promethazine HCl 12.5 mg/ (Sodium Chloride) 50.5 mls @ 200 mls/hr IV Q6H PRN PRN Reason: Nausea/Vomiting Sodium Chloride (Normal Saline) 1,000 mls @ 125 mls/hr IV ASDIRECTED [facility] Last Admin: 10/31/17 13:14 Dose: 125 mls/hr Potassium Chloride 20 meq/ (Premix) 0 mls @ 50 mls/hr IV Q2H [facility] Stop: 10/31/17 02:01 Last Admin: 10/31/17 02:46 Dose: 50 mls/hr Sodium Chloride (Normal Saline) 1,000 mls @ 75 mls/hr IV ASDIRECTED [facility] Last Admin: 11/02/17 21:23 Dose: 75 mls/hr Lidocaine HCl (Xylocaine-Mpf 1%) 6 ml INJECT ONETIME ONE Stop: 10/30/17 21:55 Last Admin: 10/30/17 22:26 Dose: 6 ml Lidocaine HCl (Xylocaine-Mpf 1%) Confirm Administered Dose 5 ml .ROUTE .STK-MED ONE Stop: 10/31/17 02:34 Last Admin: 10/31/17 02:47 Dose: 5 ml Lorazepam (Ativan) 0.5 mg PO Q6HR PRN PRN Reason: Anxiety Lorazepam (Ativan) 0.5 - 1 mg IVPUSH Q4H PRN PRN Reason: Nausea/Vomiting Last Admin: 11/02/17 19:44 Dose: 0.5 mg Metoclopramide HCl (Reglan) 10 mg PO TID [facility] Last Admin: 11/03/17 08:29 Dose: Not Given Morphine Sulfate (Ms Contin) 30 mg PO BEDTIME [facility] Last Admin: 11/03/17 01:02 Dose: Not Given Ondansetron HCl (Zofran Odt) 4 mg PO ONETIME ONE Stop: 10/30/17 18:39 Last Admin: 10/30/17 18:52 Dose: 4 mg Ondansetron HCl (Zofran Odt) 4 mg PO Q6H PRN PRN Reason: Nausea able to take PO Ondansetron HCl (Zofran) 4 mg IV Q6H PRN PRN Reason: Nausea/Vomiting Last Admin: 10/31/17 05:56 Dose: 4 mg Pantoprazole Sodium (Protonix Iv) 40 mg IV ONETIME ONE Stop: 10/30/17 20:50 Last Admin: 10/30/17 21:47 Dose: 40 mg - Exam Quality Assessment: Urine Catheter General: Sedated, Lethargic Lungs: Clear to Auscultation, Normal Respiratory Effort Cardiovascular: Regular Rate, Regular Rhythm, No Murmurs GI/Abdominal Exam: Soft, No Organomegaly, Distended, Tender. No: Guarding, Rigid, Rebound Extremities: Non-Tender, Pedal Edema Skin: Warm, Dry, Intact - Problem List Review Problem List Initiated/Reviewed/Updated: Yes - Plan Plan:: ASSESSMENT AND PLAN - Stage IV Neuroendocine Cancer - symptoms have been well controlled with current management, on exam today patient appears to be very comfortable. -Continue comfort cares -Okay to use octreotide from family supply -Symptomatic management including aggressive pain and anxiety management Intractable nausea with vomiting - no significant issues with nausea or vomiting in the past 24 hours. -Symptomatic management Left popliteal DVT - diagnosed approximately one month ago. Family would like to discontinue treatment at this time. -Discontinue enoxaparin Palliative care-patient has requested no further aggressive treatment or interventions Maintenance issues - - DVT prophylaxis - comfort cares - GI prophylaxis - comfort cares - Nutrition - clear liquids Disposition - the patient has entered the dying process and I would anticipate her in the next couple of days.
[2017-11-06] MEDS ORDERED: Morphine 10 MG/0.5 ML Oral Syringe PO PRN (16:17)
[2017-11-06] MEDS ORDERED: Belladonna Alkaloids/Opium 16.2-30 MG Supp RECTAL PRN (20:07)
[2017-11-07] MEDS: LORazepam ORAL Concentrate 1MG/0.5ML U/D PO PRN ×3 (01:30→12:34)
[2017-11-07] MEDS: Morphine 10 MG/0.5 ML Oral Syringe PO PRN ×6 (03:15→22:02)
[2017-11-07] MEDS: OCTREOTIDE 100 MCG/ML SUBCUT SCH ×3 (09:56→21:27)
[2017-11-07] MEDS: CHECK SCOPALAMINE PATCH TOP SCH ×2 (10:55→20:52)
[2017-11-07] MEDS: CHECK FENTANYL TOP SCH ×2 (10:55→20:51)
[2017-11-07] MEDS: [UNRECOGNIZED DRUG - REMARK] TOP SCH (10:55)
--- NOTE | 2017-11-07 14:06 | PCM.PN ---
- General Info Date of Service: 11/07/17 Subjective Update: And has been less agitated with better control of her pain since dosing of medications was changed last night. She is been sleeping most the time, only mildly intermittently agitated. Family is been comfortable with current level of pain control. Patient is very sedated and unable to provide significant information concerning symptoms or review of systems. Functional Status: Reports: Pain Controlled - Patient Data Vitals - Most Recent: Last Vital Signs Temp 100.2 F 11/07/17 08:14 Pulse 123 H 11/07/17 08:14 Resp 18 11/07/17 08:14 BP 110/60 11/07/17 08:14 Pulse Ox 92 L 11/07/17 08:14 Weight - Most Recent: 176 lb I&O - Last 24 Hours: Intake & Output 11/06/17 11/07/17 11/07/17 22:59 06:59 14:59 Output Total 100 Balance -100 Med Orders - Current: Current Medications Acetaminophen (Tylenol) 650 mg RECTAL Q4H PRN PRN Reason: Mild pain/fever Last Admin: 11/03/17 00:30 Dose: 650 mg Albuterol (Proventil Neb Soln) 2.5 mg INH Q6H PRN PRN Reason: Dyspnea Belladonna Alkaloids/Opium (B & O Supprettes No. 15a) 1 supp RECTAL Q8H PRN PRN Reason: Spasms Lidocaine HCl 30 ml/ Al Hydroxide/Mg Hydroxide 30 ml/Diphenhydramine HCl 75 mg 0 ml PO Q4H PRN PRN Reason: MOUTH CARE Dimethicone/Zinc Oxide (Rash Relief-Zinc Oxide [place]) 0 gm TOP ASDIRECTED PRN PRN Reason: Rash Last Admin: 11/04/17 12:19 Dose: 1 spray Fentanyl (Duragesic) 25 mcg TRDERM Q72H [facility] Last Admin: 11/05/17 21:14 Dose: 25 mcg Lorazepam (Ativan Oral Concentrate 1mg/0.5 Ml U/D) 1 mg PO Q1H PRN PRN Reason: Anxiety Last Admin: 11/07/17 12:34 Dose: 1 mg Morphine Sulfate (Morphine 10 Mg/0.5 Ml Oral Syringe) 10 - 20 mg PO Q1H PRN PRN Reason: Pain Last Admin: 11/07/17 12:35 Dose: 20 mg Check Fentanyl 25mcg (/Hr Patch) 1 each TOP BID [facility] Last Admin: 11/07/17 10:55 Dose: Not Given Granisetron Patch (Check) 1 each TOP DAILY [facility] Last Admin: 11/07/17 10:55 Dose: Not Given (Granisetron [ Sancuso] 3.1 Mg)*Pom * 0 mg TD Tu@1600 [facility] Last Admin: 10/31/17 15:34 Dose: 3.1 mg Check Scopalamine (Patch) 1 each TOP BID [facility] Last Admin: 11/07/17 10:55 Dose: Not Given Octreotide Acetate (Sandostatin) 100 mcg SUBCUT TID [facility] Last Admin: 11/07/17 09:56 Dose: 100 mcg Ondansetron HCl (Zofran Odt) 4 mg PO Q4H PRN PRN Reason: Nausea able to take PO Last Admin: 11/01/17 00:44 Dose: 4 mg Scopolamine (Transderm-Scop) 1.5 mg TRDERM Q72H PRN PRN Reason: Nausea Last Admin: 11/01/17 00:45 Dose: 1.5 mg Sodium Chloride (Saline Flush) 10 ml FLUSH ASDIRECTED PRN PRN Reason: Keep Vein Open Last Admin: 10/30/17 20:23 Dose: 10 ml Discontinued Medications Acetaminophen (Tylenol) 650 mg PO Q4H PRN PRN Reason: Pain (Mild 1-3)/fever Enoxaparin Sodium (Lovenox) 40 mg SUBCUT Q12H [facility] Last Admin: 11/04/17 09:15 Dose: Not Given Fentanyl (Duragesic) Confirm Administered Dose 25 mcg .ROUTE .[facility]-MED ONE Stop: 11/05/17 21:12 Last Admin: 11/05/17 21:16 Dose: Not Given Folic Acid (Folic Acid) 1 mg PO DAILY [facility] Last Admin: 11/03/17 08:28 Dose: Not Given Hydromorphone HCl (Dilaudid) 4 mg PO Q4H [facility] Last Admin: 10/30/17 22:59 Dose: Not Given Hydromorphone HCl (Dilaudid) 0.5 - 1 mg IVPUSH Q2H PRN PRN Reason: Pain (severe 7-10) Last Admin: 11/02/17 22:02 Dose: 0.5 mg Hydromorphone HCl (Dilaudid) 4 mg PO Q4H [facility] Last Admin: 11/02/17 21:48 Dose: Not Given Lactated Ringer's (Ringers, Lactated) 1,000 mls @ 999 mls/hr IV BOLUS ONE Stop: 10/30/17 20:22 Last Admin: 10/30/17 19:25 Dose: 999 mls/hr Magnesium Sulfate 2 gm/ Premix 50 mls @ 12.5 mls/hr IV Q4H [facility] Stop: 10/31/17 08:44 Last Admin: 10/31/17 06:18 Dose: 12.5 mls/hr Potassium Chloride 20 meq/Lidocaine HCl 2 ml/ Sodium Chloride 112 mls @ 50 mls/ hr IV Q2H [facility] Stop: 10/31/17 02:48 Last Admin: 10/30/17 22:59 Dose: Not Given Promethazine HCl 12.5 mg/ (Sodium Chloride) 50.5 mls @ 200 mls/hr IV Q6H PRN PRN Reason: Nausea/Vomiting Sodium Chloride (Normal Saline) 1,000 mls @ 125 [facility] Last Admin: 10/31/17 13:14 Dose: 125 mls/hr Potassium Chloride 20 meq/ (Premix) 0 mls @ 50 mls/hr IV Q2H [facility] Stop: 10/31/17 02:01 Last Admin: 10/31/17 02:46 Dose: 50 mls/hr Sodium Chloride (Normal Saline) 1,000 mls @ 75 mls/hr IV ASDIRECTED [facility] Last Admin: 11/02/17 21:23 Dose: 75 mls/hr Lidocaine HCl (Xylocaine-Mpf 1%) 6 ml INJECT ONETIME ONE Stop: 10/30/17 21:55 Last Admin: 10/30/17 22:26 Dose: 6 ml Lidocaine HCl (Xylocaine-Mpf 1%) Confirm Administered Dose 5 ml .ROUTE .STK-MED ONE Stop: 10/31/17 02:34 Last Admin: 10/31/17 02:47 Dose: 5 ml Lorazepam (Ativan) 0.5 mg PO Q6HR PRN PRN Reason: Anxiety Lorazepam (Ativan) 0.5 - 1 mg IVPUSH Q4H PRN PRN Reason: Nausea/Vomiting Last Admin: 11/02/17 19:44 Dose: 0.5 mg Lorazepam (Ativan Oral Concentrate 1mg/0.5 Ml U/D) 1 mg PO Q2H PRN PRN Reason: Anxiety Last Admin: 11/06/17 15:17 Dose: 1 mg Metoclopramide HCl (Reglan) 10 mg PO TID [facility] Last Admin: 11/03/17 08:29 Dose: Not Given Morphine Sulfate (Ms Contin) 30 mg PO BEDTIME [facility] Last Admin: 11/03/17 01:02 Dose: Not Given Morphine Sulfate (Morphine 10 Mg/0.5 Ml Oral Syringe) 10 mg PO Q2H PRN PRN Reason: Pain Last Admin: 11/06/17 14:45 Dose: 10 mg Morphine Sulfate (Morphine 10 Mg/0.5 Ml Oral Syringe) 10 mg PO Q1H PRN PRN Reason: Pain Ondansetron HCl (Zofran Odt) 4 mg PO ONETIME ONE Stop: 10/30/17 18:39 Last Admin: 10/30/17 18:52 Dose: 4 mg Ondansetron HCl (Zofran Odt) 4 mg PO Q6H PRN PRN Reason: Nausea able to take PO Ondansetron HCl (Zofran) 4 mg IV Q6H PRN PRN Reason: Nausea/Vomiting Last Admin: 10/31/17 05:56 Dose: 4 mg Pantoprazole Sodium (Protonix Iv) 40 mg IV ONETIME ONE Stop: 10/30/17 20:50 Last Admin: 10/30/17 21:47 Dose: 40 mg - Exam Quality Assessment: Urine Catheter General: Sedated, Lethargic Lungs: Clear to Auscultation, Normal Respiratory Effort Cardiovascular: Regular Rhythm, No Murmurs, Tachycardia GI/Abdominal Exam: Soft, Non-Tender, No Organomegaly, Distended - Problem List Review Problem List Initiated/Reviewed/Updated: Yes - My Orders Last 24 Hours: My Active Orders 11/06/17 16:16 LORazepam [Ativan ORAL Concentrate 1MG/0.5 ML U/D] 1 mg PO Q1H PRN 11/06/17 16:18 Morphine [Morphine 10 MG/0.5 ML Oral Syringe] 10 - 20 mg PO Q1H PRN 11/06/17 20:07 Belladonna/Opium [B & O Supprettes No. 15A] 1 supp RECTAL Q8H PRN - Plan Plan:: ASSESSMENT AND PLAN - Stage IV Neuroendocine Cancer - symptoms have been well controlled with current management, on exam today patient appears to be very comfortable. -Continue comfort cares -Okay to use octreotide from family supply -Symptomatic management including aggressive pain and anxiety management Intractable nausea with vomiting - no significant issues with nausea or vomiting in the past few days -Symptomatic management Left popliteal DVT - diagnosed approximately one month ago. Family would like to discontinue treatment at this time. -Discontinue enoxaparin Palliative care-patient has requested no further aggressive treatment or interventions Maintenance issues - - DVT prophylaxis - comfort cares - GI prophylaxis - comfort cares - Nutrition - clear liquids Disposition - the patient has entered the dying process and I would anticipate her in the next couple of days.
[2017-11-07] MEDS: GRANISETRON 3.1 MG TD SCH (15:34)
[2017-11-08] MEDS: Morphine 10 MG/0.5 ML Oral Syringe PO PRN ×12 (00:31→23:07)
[2017-11-08] MEDS: OCTREOTIDE 100 MCG/ML SUBCUT SCH ×3 (08:00→22:34)
[2017-11-08] MEDS: CHECK SCOPALAMINE PATCH TOP SCH ×2 (10:08→21:14)
[2017-11-08] MEDS: [UNRECOGNIZED DRUG - REMARK] TOP SCH (10:08)
[2017-11-08] MEDS: CHECK FENTANYL TOP SCH ×2 (10:08→21:13)
[2017-11-08] MEDS: LORazepam ORAL Concentrate 1MG/0.5ML U/D PO PRN (10:32)
--- NOTE | 2017-11-08 14:56 | PCM.PN ---
- General Info Date of Service: 11/08/17 Subjective Update: Nettie has shown further decline over the past 24 hours, lethargic and much less responsive to family. No longer getting out of bed or ambulating. She appears to be very comfortable with current management. Because of sedation and lethargy she's unable to provide specific information concerning symptoms or review of systems. - Patient Data Vitals - Most Recent: Last Vital Signs Temp 99 F 11/08/17 08:49 Pulse 120 H 11/08/17 08:49 Resp 10 L 11/08/17 08:49 BP 91/50 L 11/08/17 08:49 Pulse Ox 90 L 11/08/17 08:49 Weight - Most Recent: 176 lb I&O - Last 24 Hours: Intake & Output 11/07/17 11/08/17 11/08/17 22:59 06:59 14:59 Output Total 250 Balance -250 Med Orders - Current: Current Medications Acetaminophen (Tylenol) 650 mg RECTAL Q4H PRN PRN Reason: Mild pain/fever Last Admin: 11/03/17 00:30 Dose: 650 mg Albuterol (Proventil Neb Soln) 2.5 mg INH Q6H PRN PRN Reason: Dyspnea Belladonna Alkaloids/Opium (B & O Supprettes No. 15a) 1 supp RECTAL Q8H PRN PRN Reason: Spasms Lidocaine HCl 30 ml/ Al Hydroxide/Mg Hydroxide 30 ml/Diphenhydramine HCl 75 mg 0 ml PO Q4H PRN PRN Reason: MOUTH CARE Dimethicone/Zinc Oxide (Rash Relief-Zinc Oxide [place]) 0 gm TOP ASDIRECTED PRN PRN Reason: Rash Last Admin: 11/04/17 12:19 Dose: 1 spray Fentanyl (Duragesic) 25 mcg TRDERM Q72H [facility] Last Admin: 11/05/17 21:14 Dose: 25 mcg Lorazepam (Ativan Oral Concentrate 1mg/0.5 Ml U/D) 1 mg PO Q1H PRN PRN Reason: Anxiety Last Admin: 11/08/17 10:32 Dose: 1 mg Morphine Sulfate (Morphine 10 Mg/0.5 Ml Oral Syringe) 10 - 20 mg PO Q1H PRN PRN Reason: Pain Last Admin: 11/08/17 14:17 Dose: 10 mg Check Fentanyl 25mcg (/Hr Patch) 1 each TOP BID [facility] Last Admin: 11/08/17 10:08 Dose: Not Given Granisetron Patch (Check) 1 each TOP DAILY [facility] Last Admin: 11/08/17 10:08 Dose: Not Given (Granisetron [ Sancuso] 3.1 Mg)*Pom * 0 mg TD Tu@1600 [facility] Last Admin: 11/07/17 15:34 Dose: Not Given Check Scopalamine (Patch) 1 each TOP BID [facility] Last Admin: 11/08/17 10:08 Dose: Not Given Octreotide Acetate (Sandostatin) 100 mcg SUBCUT TID [facility] Last Admin: 11/08/17 14:17 Dose: 100 mcg Ondansetron HCl (Zofran Odt) 4 mg PO Q4H PRN PRN Reason: Nausea able to take PO Last Admin: 11/01/17 00:44 Dose: 4 mg Scopolamine (Transderm-Scop) 1.5 mg TRDERM Q72H PRN PRN Reason: Nausea Last Admin: 11/01/17 00:45 Dose: 1.5 mg Sodium Chloride (Saline Flush) 10 ml FLUSH ASDIRECTED PRN PRN Reason: Keep Vein Open Last Admin: 10/30/17 20:23 Dose: 10 ml Discontinued Medications Acetaminophen (Tylenol) 650 mg PO Q4H PRN PRN Reason: Pain (Mild 1-3)/fever Enoxaparin Sodium (Lovenox) 40 mg SUBCUT Q12H [facility] Last Admin: 11/04/17 09:15 Dose: Not Given Fentanyl (Duragesic) Confirm Administered Dose 25 mcg .ROUTE .STK-MED ONE Stop: 11/05/17 21:12 Last Admin: 11/05/17 21:16 Dose: Not Given Folic Acid (Folic Acid) 1 mg PO DAILY [facility] Last Admin: 11/03/17 08:28 Dose: Not Given Hydromorphone HCl (Dilaudid) 4 mg PO Q4H [facility] Last Admin: 10/30/17 22:59 Dose: Not Given Hydromorphone HCl (Dilaudid) 0.5 - 1 mg IVPUSH Q2H PRN PRN Reason: Pain (severe 7-10) Last Admin: 11/02/17 22:02 Dose: 0.5 mg Hydromorphone HCl (Dilaudid) 4 mg PO Q4H [facility] Last Admin: 11/02/17 21:48 Dose: Not Given Lactated Ringer's (Ringers, Lactated) 1,000 mls @ 999 mls/hr IV BOLUS ONE Stop: 10/30/17 20:22 Last Admin: 10/30/17 19:25 Dose: 999 mls/hr Magnesium Sulfate 2 gm/ Premix 50 mls @ 12.5 mls/hr IV Q4H [facility] Stop: 10/31/17 08:44 Last Admin: 10/31/17 06:18 Dose: 12.5 mls/hr Potassium Chloride 20 meq/Lidocaine HCl 2 ml/ Sodium Chloride 112 mls @ 50 mls/ hr IV Q2H [facility] Stop: 10/31/17 02:48 Last Admin: 10/30/17 22:59 Dose: Not Given Promethazine HCl 12.5 mg/ (Sodium Chloride) 50.5 mls @ 200 mls/hr IV Q6H PRN PRN Reason: Nausea/Vomiting Sodium Chloride (Normal Saline) 1,000 mls @ 125 mls/hr IV ASDIRECTED [facility] Last Admin: 10/31/17 13:14 Dose: 125 mls/hr Potassium Chloride 20 meq/ (Premix) 0 mls @ 50 mls/hr IV Q2H [facility] Stop: 10/31/17 02:01 Last Admin: 10/31/17 02:46 Dose: 50 mls/hr Sodium Chloride (Normal Saline) 1,000 mls @ 75 mls/hr IV ASDIRECTED [facility] Last Admin: 11/02/17 21:23 Dose: 75 mls/hr Lidocaine HCl (Xylocaine-Mpf 1%) 6 ml INJECT ONETIME ONE Stop: 10/30/17 21:55 Last Admin: 10/30/17 22:26 Dose: 6 ml Lidocaine HCl (Xylocaine-Mpf 1%) Confirm Administered Dose 5 ml .ROUTE .STK-MED ONE Stop: 10/31/17 02:34 Last Admin: 10/31/17 02:47 Dose: 5 ml Lorazepam (Ativan) 0.5 mg PO Q6HR PRN PRN Reason: Anxiety Lorazepam (Ativan) 0.5 - 1 mg IVPUSH Q4H PRN PRN Reason: Nausea/Vomiting Last Admin: 11/02/17 19:44 Dose: 0.5 mg Lorazepam (Ativan Oral Concentrate 1mg/0.5 Ml U/D) 1 mg PO Q2H PRN PRN Reason: Anxiety Last Admin: 11/06/17 15:17 Dose: 1 mg Metoclopramide HCl (Reglan) 10 mg PO TID [facility] Last Admin: 11/03/17 08:29 Dose: Not Given Morphine Sulfate (Ms Contin) 30 mg PO BEDTIME [facility] Last Admin: 11/03/17 01:02 Dose: Not Given Morphine Sulfate (Morphine 10 Mg/0.5 Ml Oral Syringe) 10 mg PO Q2H PRN PRN Reason: Pain Last Admin: 11/06/17 14:45 Dose: 10 mg Morphine Sulfate (Morphine 10 Mg/0.5 Ml Oral Syringe) 10 mg PO Q1H PRN PRN Reason: Pain Ondansetron HCl (Zofran Odt) 4 mg PO ONETIME ONE Stop: 10/30/17 18:39 Last Admin: 10/30/17 18:52 Dose: 4 mg Ondansetron HCl (Zofran Odt) 4 mg PO Q6H PRN PRN Reason: Nausea able to take PO Ondansetron HCl (Zofran) 4 mg IV Q6H PRN PRN Reason: Nausea/Vomiting Last Admin: 10/31/17 05:56 Dose: 4 mg Pantoprazole Sodium (Protonix Iv) 40 mg IV ONETIME ONE Stop: 10/30/17 20:50 Last Admin: 10/30/17 21:47 Dose: 40 mg - Exam General: Sedated, Lethargic Lungs: Clear to Auscultation, Normal Respiratory Effort Cardiovascular: Regular Rate, Regular Rhythm, No Murmurs GI/Abdominal Exam: Soft, Non-Tender, No Organomegaly, Distended - Problem List Review Problem List Initiated/Reviewed/Updated: Yes - Plan Plan:: ASSESSMENT AND PLAN - Stage IV Neuroendocine Cancer - symptoms have been well controlled with current management, on exam today she remains very comfortable -Continue comfort cares -Okay to use octreotide from family supply -Symptomatic management including aggressive pain and anxiety management Intractable nausea with vomiting - no significant issues with nausea or vomiting in the past few days -Symptomatic management Left popliteal DVT - diagnosed approximately one month ago. Family would like to discontinue treatment at this time. -Discontinue enoxaparin Palliative care-patient has requested no further aggressive treatment or interventions Maintenance issues - - DVT prophylaxis - comfort cares - GI prophylaxis - comfort cares - Nutrition - clear liquids Disposition - the patient has entered the dying process and I would anticipate her in the next couple of days.
[2017-11-08] MEDS: Atropine Sulfate Ophth 2 ML Drops SL PRN (19:26)
[2017-11-08] MEDS: fentaNYL 25 MCG/HR Transdermal Patch TRDERM SCH (21:10)
[2017-11-08] MEDS ORDERED: Ketoconazole 2% Crm 30 GM Tube TOP SCH (23:15)
--- NOTE | 2017-11-08 23:40 | PCM.SN ---
- Free Text/Narrative Note: call from [address] [place] [address] at [phone]; O: bilateral posterior thigh rash, red raised, rash, no discharge, concerns of pruritus A; rash maybe be fungal or contact dermatitis from pillows P; order Hydrocortisone 1% cream and Ketoconazole 1% cream apply bid to rash for comfort. continue present plan of care.
[2017-11-09] MEDS: Morphine 10 MG/0.5 ML Oral Syringe PO PRN ×10 (00:57→22:00)
[2017-11-09] MEDS: Nystatin Crm 15 GM Tube TOP PRN ×2 (01:39→14:24)
[2017-11-09] MEDS: Hydrocortisone 1% Crm 30 GM Tube TOP PRN ×2 (01:41→14:25)
[2017-11-09] MEDS: Atropine Sulfate Ophth 2 ML Drops SL PRN ×5 (07:09→23:16)
[2017-11-09] MEDS: CHECK FENTANYL TOP SCH ×2 (09:07→21:05)
[2017-11-09] MEDS: CHECK SCOPALAMINE PATCH TOP SCH ×2 (09:07→21:05)
[2017-11-09] MEDS: [UNRECOGNIZED DRUG - REMARK] TOP SCH (09:07)
[2017-11-09] MEDS: OCTREOTIDE 100 MCG/ML SUBCUT SCH ×3 (09:12→21:05)
--- NOTE | 2017-11-09 16:22 | PCM.PN ---
- General Info Date of Service: 11/09/17 Subjective Update: Nettie has become less responsive over the past 24 hours, no longer interacting with family. She has required ongoing more intensive nursing care for management of dermatitis on her legs and back. She is currently comfortable but has required intermittent changes in dosing of medication to remain comfortable and manage symptoms. Because of current sedation and lethargy she is unable to provide significant information concerning symptoms and review of systems. - Patient Data Vitals - Most Recent: Last Vital Signs Temp 100.8 F H 11/09/17 08:00 Pulse 128 H 11/09/17 08:00 Resp 20 11/09/17 08:00 BP 104/58 L 11/09/17 08:00 Pulse Ox 87 L 11/09/17 08:00 Weight - Most Recent: 176 lb I&O - Last 24 Hours: Intake & Output 11/09/17 11/09/17 11/09/17 06:59 14:59 22:59 Output Total 150 Balance -150 Med Orders - Current: Current Medications Acetaminophen (Tylenol) 650 mg RECTAL Q4H PRN PRN Reason: Mild pain/fever Last Admin: 11/03/17 00:30 Dose: 650 mg Albuterol (Proventil Neb Soln) 2.5 mg INH Q6H PRN PRN Reason: Dyspnea Atropine Sulfate (Atropine 1%) 0 ml SL Q2H PRN PRN Reason: Other Last Admin: 11/09/17 14:25 Dose: 2 drop Belladonna Alkaloids/Opium (B & O Supprettes No. 15a) 1 supp RECTAL Q8H PRN PRN Reason: Spasms Lidocaine HCl 30 ml/ Al Hydroxide/Mg Hydroxide 30 ml/Diphenhydramine HCl 75 mg 0 ml PO Q4H PRN PRN Reason: MOUTH CARE Dimethicone/Zinc Oxide (Rash Relief-Zinc Oxide [place]) 0 gm TOP ASDIRECTED PRN PRN Reason: Rash Last Admin: 11/04/17 12:19 Dose: 1 spray Fentanyl (Duragesic) 25 mcg TRDERM Q72H [facility] Last Admin: 11/08/17 21:10 Dose: 25 mcg Hydrocortisone (Hydrocortisone 1% Crm) 0 gm TOP ASDIRECTED PRN PRN Reason: Rash Last Admin: 11/09/17 14:25 Dose: 1 applic Lorazepam (Ativan Oral Concentrate 1mg/0.5 Ml U/D) 1 mg PO Q1H PRN PRN Reason: Anxiety Last Admin: 11/08/17 10:32 Dose: 1 mg Morphine Sulfate (Morphine 10 Mg/0.5 Ml Oral Syringe) 10 - 20 mg PO Q1H PRN PRN Reason: Pain Last Admin: 11/09/17 14:24 Dose: 10 mg Check Fentanyl 25mcg (/Hr Patch) 1 each TOP BID [facility] Last Admin: 11/09/17 09:07 Dose: Not Given Granisetron Patch (Check) 1 each TOP DAILY [facility] Last Admin: 11/09/17 09:07 Dose: Not Given (Granisetron [ Sancuso] 3.1 Mg)*Pom * 0 mg TD Tu@1600 [facility] Last Admin: 11/07/17 15:34 Dose: Not Given Check Scopalamine (Patch) 1 each TOP BID [facility] Last Admin: 11/09/17 09:07 Dose: Not Given Nystatin (Nystatin Crm) 0 gm TOP QID PRN PRN Reason: Rash Last Admin: 11/09/17 14:24 Dose: 1 applic Octreotide Acetate (Sandostatin) 100 mcg SUBCUT TID [facility] Last Admin: 11/09/17 14:24 Dose: 100 mcg Ondansetron HCl (Zofran Odt) 4 mg PO Q4H PRN PRN Reason: Nausea able to take PO Last Admin: 11/01/17 00:44 Dose: 4 mg Scopolamine (Transderm-Scop) 1.5 mg TRDERM Q72H PRN PRN Reason: Nausea Last Admin: 11/01/17 00:45 Dose: 1.5 mg Sodium Chloride (Saline Flush) 10 ml FLUSH ASDIRECTED PRN PRN Reason: Keep Vein Open Last Admin: 10/30/17 20:23 Dose: 10 ml Discontinued Medications Acetaminophen (Tylenol) 650 mg PO Q4H PRN PRN Reason: Pain (Mild 1-3)/fever Enoxaparin Sodium (Lovenox) 40 mg SUBCUT Q12H [facility] Last Admin: 11/04/17 09:15 Dose: Not Given Fentanyl (Duragesic) Confirm Administered Dose 25 mcg .ROUTE .STK-MED ONE Stop: 11/05/17 21:12 Last Admin: 11/05/17 21:16 Dose: Not Given Folic Acid (Folic Acid) 1 mg PO DAILY [facility] Last Admin: 11/03/17 08:28 Dose: Not Given Hydromorphone HCl (Dilaudid) 4 mg PO Q4H [facility] Last Admin: 10/30/17 22:59 Dose: Not Given Hydromorphone HCl (Dilaudid) 0.5 - 1 mg IVPUSH Q2H PRN PRN Reason: Pain (severe 7-10) Last Admin: 11/02/17 22:02 Dose: 0.5 mg Hydromorphone HCl (Dilaudid) 4 mg PO Q4H [facility] Last Admin: 11/02/17 21:48 Dose: Not Given Lactated Ringer's (Ringers, Lactated) 1,000 mls @ 999 mls/hr IV BOLUS ONE Stop: 10/30/17 20:22 Last Admin: 10/30/17 19:25 Dose: 999 mls/hr Magnesium Sulfate 2 gm/ Premix 50 mls @ 12.5 mls/hr IV Q4H [facility] Stop: 10/31/17 08:44 Last Admin: 10/31/17 06:18 Dose: 12.5 mls/hr Potassium Chloride 20 meq/Lidocaine HCl 2 ml/ Sodium Chloride 112 mls @ 50 mls/ hr IV Q2H [facility] Stop: 10/31/17 02:48 Last Admin: 10/30/17 22:59 Dose: Not Given Promethazine HCl 12.5 mg/ (Sodium Chloride) 50.5 mls @ 200 mls/hr IV Q6H PRN PRN Reason: Nausea/Vomiting Sodium Chloride (Normal Saline) 1,000 mls @ 125 mls/hr IV ASDIRECTED [facility] Last Admin: 10/31/17 13:14 Dose: 125 mls/hr Potassium Chloride 20 meq/ (Premix) 0 mls @ 50 mls/hr IV Q2H [facility] Stop: 10/31/17 02:01 Last Admin: 10/31/17 02:46 Dose: 50 mls/hr Sodium Chloride (Normal Saline) 1,000 mls @ 75 mls/hr IV ASDIRECTED [facility] Last Admin: 11/02/17 21:23 Dose: 75 mls/hr Ketoconazole (Nizoral 2% Crm) 0 gm TOP BID [facility] Last Admin: 11/09/17 02:03 Dose: Not Given Lidocaine HCl (Xylocaine-Mpf 1%) 6 ml INJECT ONETIME ONE Stop: 10/30/17 21:55 Last Admin: 10/30/17 22:26 Dose: 6 ml Lidocaine HCl (Xylocaine-Mpf 1%) Confirm Administered Dose 5 ml .ROUTE .STK-MED ONE Stop: 10/31/17 02:34 Last Admin: 10/31/17 02:47 Dose: 5 ml Lorazepam (Ativan) 0.5 mg PO Q6HR PRN PRN Reason: Anxiety Lorazepam (Ativan) 0.5 - 1 mg IVPUSH Q4H PRN PRN Reason: Nausea/Vomiting Last Admin: 11/02/17 19:44 Dose: 0.5 mg Lorazepam (Ativan Oral Concentrate 1mg/0.5 Ml U/D) 1 mg PO Q2H PRN PRN Reason: Anxiety Last Admin: 11/06/17 15:17 Dose: 1 mg Metoclopramide HCl (Reglan) 10 mg PO TID [facility] Last Admin: 11/03/17 08:29 Dose: Not Given Morphine Sulfate (Ms Contin) 30 mg PO BEDTIME [facility] Last Admin: 11/03/17 01:02 Dose: Not Given Morphine Sulfate (Morphine 10 Mg/0.5 Ml Oral Syringe) 10 mg PO Q2H PRN PRN Reason: Pain Last Admin: 11/06/17 14:45 Dose: 10 mg Morphine Sulfate (Morphine 10 Mg/0.5 Ml Oral Syringe) 10 mg PO Q1H PRN PRN Reason: Pain Ondansetron HCl (Zofran Odt) 4 mg PO ONETIME ONE Stop: 10/30/17 18:39 Last Admin: 10/30/17 18:52 Dose: 4 mg Ondansetron HCl (Zofran Odt) 4 mg PO Q6H PRN PRN Reason: Nausea able to take PO Ondansetron HCl (Zofran) 4 mg IV Q6H PRN PRN Reason: Nausea/Vomiting Last Admin: 10/31/17 05:56 Dose: 4 mg Pantoprazole Sodium (Protonix Iv) 40 mg IV ONETIME ONE Stop: 10/30/17 20:50 Last Admin: 10/30/17 21:47 Dose: 40 mg - Exam Quality Assessment: Urine Catheter General: Sedated, Obtunded Lungs: Normal Respiratory Effort, Rhonchi. No: Decreased Breath Sounds, Crackles, Rales, Rub, Stridor, Wheezing Cardiovascular: Regular Rate, Regular Rhythm, No Murmurs GI/Abdominal Exam: Soft, Non-Tender, No Organomegaly, Distended Extremities: Non-Tender, Pedal Edema Skin: Intact, Rash - Problem List Review Problem List Initiated/Reviewed/Updated: Yes - My Orders Last 24 Hours: My Active Orders 11/08/17 18:17 Atropine Sulfate [Atropine 1%] See Dose Instructions SL Q2H PRN - Plan Plan:: ASSESSMENT AND PLAN - Stage IV Neuroendocine Cancer - symptoms have been well controlled with current management, on exam today she remains very comfortable, she is required ongoing reassessment and management of medications for comfort. She is imminently dying and I do not expect her to survive more than 7 days from this point. I believe that hospice inpatient management is necessary for ongoing management of symptoms including pain and dermatitis that has developed on her back and legs. -Continue comfort cares -Okay to use octreotide from family supply -Symptomatic management including aggressive pain and anxiety management Intractable nausea with vomiting - no significant issues with nausea or vomiting in the past few days -Symptomatic management Left popliteal DVT - diagnosed approximately one month ago. Family would like to discontinue treatment at this time. -Discontinue enoxaparin Palliative care-patient has requested no further aggressive treatment or interventions Maintenance issues - - DVT prophylaxis - comfort cares - GI prophylaxis - comfort cares - Nutrition - clear liquids Disposition - the patient has entered the dying process and I would anticipate her within the next 7 days.
[2017-11-10] MEDS: Morphine 10 MG/0.5 ML Oral Syringe PO PRN ×4 (01:25→10:20)
[2017-11-10] MEDS: Scopolamine 1.5 MG Transdermal Patch TRDERM PRN (09:03)
[2017-11-10] MEDS: CHECK SCOPALAMINE PATCH TOP SCH (09:16)
[2017-11-10] MEDS: [UNRECOGNIZED DRUG - REMARK] TOP SCH (09:17)
[2017-11-10] MEDS: CHECK FENTANYL TOP SCH (09:19)
[2017-11-10] MEDS: LORazepam ORAL Concentrate 1MG/0.5ML U/D PO PRN (09:38)
[2017-11-10] MEDS: OCTREOTIDE 100 MCG/ML SUBCUT SCH (10:23)
--- NOTE | 2017-11-10 12:30 | PCM.DCSUM1 ---
Discharge Summary - Hospital Course Brief History: Nettie is a 52-year-old woman with known end-stage neuroendocrine tumor who was admitted through the emergency department for evaluation and management of severe pain. - Discharge Data Discharge Date: 11/10/17 Discharge Disposition: DC/Tfer to Hospice-Med Fac 51 Condition: Poor - Discharge Diagnosis/Problem(s) (1) Left leg DVT SNOMED Code(s): 551043080 ICD Code: I82.402 - ACUTE EMBOLISM AND THOMBOS UNSP DEEP VEINS OF L LOW EXTREM Status: Acute Qualifiers: Affected thrombotic vein of extremity: popliteal Chronicity: acute Qualified Code(s): I82.432 - Acute embolism and thrombosis of left popliteal vein (2) Nausea and vomiting SNOMED Code(s): 98617145 ICD Code: R11.2 - NAUSEA WITH VOMITING, UNSPECIFIED Status: Acute Qualifiers: Vomiting type: unspecified Vomiting Intractability: intractable Qualified Code(s): R11.2 - Nausea with vomiting, unspecified (3) Cancer associated pain SNOMED Code(s): 392271511 ICD Code: G89.3 - NEOPLASM RELATED PAIN (ACUTE) (CHRONIC) Status: Chronic - Patient Summary/Data Hospital Course: Ms. Galan is a 52-year-old woman with a known history of widely metastatic neuroendocrine carcinoma. She had reached a point in her disease were no further interventional therapy was felt to be possible or likely to provide significant benefit. She was admitted through the emergency department with severe nausea vomiting, poor oral intake, dehydration, and uncontrolled pain. Initially patient wanted ongoing aggressive management. She was given IV fluids for management of dehydration, anti-medic therapy, and increase in pain medication. Her fentanyl patch dose was increased and she was given IV morphine and lorazepam as needed. On the fifth she decided to proceed with comfort cares only but required ongoing management of her discomfort. She was converted to sublingual morphine and lorazepam and doses as well as intervals were managed until the point that she was comfortable. Over the last 2 days of hospitalization she is been very comfortable, intermittently more aware and able to communicate with family. She will be discharged to inpatient hospice status for ongoing management of her symptoms. Activity will be as tolerated and diet will also be as tolerated. - Patient Instructions Diet: Usual Diet as Tolerated Activity: As Tolerated Other/Special Instructions: Discharge to inpatient hospice status - Discharge Plan Home Medications: Home Meds Albuterol Sulfate 2.5 mg IH Q6H PRN 07/18/17 [History] Albuterol Sulfate [Proair Hfa] 108 mcg INH Q6H PRN 07/18/17 [History] Enoxaparin [Lovenox] 40 mg SUBCUT Q12HR 10/02/17 [History] Folic Acid 1 mg PO DAILY 10/07/17 [History] Prochlorperazine [Compazine] 5 mg PO Q6H PRN 10/07/17 [History] Granisetron [Sancuso] 3.1 mg TD ASDIRECTED 10/19/17 [History] HYDROmorphone [Dilaudid] 4 mg PO Q4H 10/19/17 [History] LORazepam [Ativan] 0.5 mg PO Q6HR PRN 10/19/17 [History] Metoclopramide HCl 10 mg PO ASDIRECTED 10/22/17 [History] fentaNYL [Duragesic] 25 mcg TRDERM Q72H 10/30/17 [History] Referrals: Murali Becerra MD [Primary Care Provider] - - Discharge Summary/Plan Comment DC Time >30 min.: No - Patient Data Vitals - Most Recent: Last Vital Signs Temp 100.6 F 11/10/17 08:30 Pulse 127 H 11/10/17 08:30 Resp 16 11/10/17 08:30 BP 112/63 11/10/17 08:30 Pulse Ox 89 L 11/10/17 08:30 Weight - Most Recent: 176 lb I&O - Last 24 hours: Intake & Output 11/09/17 11/10/17 11/10/17 22:59 06:59 14:59 Output Total 125 250 Balance -125 -250 Med Orders - Current: Current Medications Granisetron Patch (Check) 1 each TOP DAILY [facility] Discontinued Medications Acetaminophen (Tylenol) 650 mg PO Q4H PRN PRN Reason: Pain (Mild 1-3)/fever Acetaminophen (Tylenol) 650 mg RECTAL Q4H PRN PRN Reason: Mild pain/fever Last Admin: 11/03/17 00:30 Dose: 650 mg Albuterol (Proventil Neb Soln) 2.5 mg INH Q6H PRN PRN Reason: Dyspnea Atropine Sulfate (Atropine 1%) 0 ml SL Q2H PRN PRN Reason: Other Last Admin: 11/09/17 23:16 Dose: 2 drop Belladonna Alkaloids/Opium (B & O Supprettes No. 15a) 1 supp RECTAL Q8H PRN PRN Reason: Spasms Lidocaine HCl 30 ml/ Al Hydroxide/Mg Hydroxide 30 ml/Diphenhydramine HCl 75 mg 0 ml PO Q4H PRN PRN Reason: MOUTH CARE Dimethicone/Zinc Oxide (Rash Relief-Zinc Oxide [place]) 0 gm TOP ASDIRECTED PRN PRN Reason: Rash Last Admin: 11/04/17 12:19 Dose: 1 spray Enoxaparin Sodium (Lovenox) 40 mg SUBCUT Q12H [facility] Last Admin: 11/04/17 09:15 Dose: Not Given Fentanyl (Duragesic) 25 mcg TRDERM Q72H [facility] Last Admin: 11/08/17 21:10 Dose: 25 mcg Fentanyl (Duragesic) Confirm Administered Dose 25 mcg .ROUTE .STK-MED ONE Stop: 11/05/17 21:12 Last Admin: 11/05/17 21:16 Dose: Not Given Folic Acid (Folic Acid) 1 mg PO DAILY [facility] Last Admin: 11/03/17 08:28 Dose: Not Given Hydrocortisone (Hydrocortisone 1% Crm) 0 gm TOP ASDIRECTED PRN PRN Reason: Rash Last Admin: 11/09/17 14:25 Dose: 1 applic Hydromorphone HCl (Dilaudid) 4 mg PO Q4H [facility] Last Admin: 10/30/17 22:59 Dose: Not Given Hydromorphone HCl (Dilaudid) 0.5 - 1 mg IVPUSH Q2H PRN PRN Reason: Pain (severe 7-10) Last Admin: 11/02/17 22:02 Dose: 0.5 mg Hydromorphone HCl (Dilaudid) 4 mg PO Q4H [facility] Last Admin: 11/02/17 21:48 Dose: Not Given Lactated Ringer's (Ringers, Lactated) 1,000 mls @ 999 mls/hr IV BOLUS ONE Stop: 10/30/17 20:22 Last Admin: 10/30/17 19:25 Dose: 999 mls/hr Magnesium Sulfate 2 gm/ Premix 50 mls @ 12.5 mls/hr IV Q4H [facility] Stop: 10/31/17 08:44 Last Admin: 10/31/17 06:18 Dose: 12.5 mls/hr Potassium Chloride 20 meq/Lidocaine HCl 2 ml/ Sodium Chloride 112 mls @ 50 mls/ hr IV Q2H [facility] Stop: 10/31/17 02:48 Last Admin: 10/30/17 22:59 Dose: Not Given Promethazine HCl 12.5 mg/ (Sodium Chloride) 50.5 mls @ 200 mls/hr IV Q6H PRN PRN Reason: Nausea/Vomiting Sodium Chloride (Normal Saline) 1,000 mls @ 125 mls/hr IV ASDIRECTED [facility] Last Admin: 10/31/17 13:14 Dose: 125 mls/hr Potassium Chloride 20 meq/ (Premix) 0 mls @ 50 mls/hr IV Q2H [facility] Stop: 10/31/17 02:01 Last Admin: 10/31/17 02:46 Dose: 50 mls/hr Sodium Chloride (Normal Saline) 1,000 mls @ 75 mls/hr IV ASDIRECTED [facility] Last Admin: 11/02/17 21:23 Dose: 75 mls/hr Ketoconazole (Nizoral 2% Crm) 0 gm TOP BID [facility] Last Admin: 11/09/17 02:03 Dose: Not Given Lidocaine HCl (Xylocaine-Mpf 1%) 6 ml INJECT ONETIME ONE Stop: 10/30/17 21:55 Last Admin: 10/30/17 22:26 Dose: 6 ml Lidocaine HCl (Xylocaine-Mpf 1%) Confirm Administered Dose 5 ml .ROUTE .STK-MED ONE Stop: 10/31/17 02:34 Last Admin: 10/31/17 02:47 Dose: 5 ml Lorazepam (Ativan) 0.5 mg PO Q6HR PRN PRN Reason: Anxiety Lorazepam (Ativan) 0.5 - 1 mg IVPUSH Q4H PRN PRN Reason: Nausea/Vomiting Last Admin: 11/02/17 19:44 Dose: 0.5 mg Lorazepam (Ativan Oral Concentrate 1mg/0.5 Ml U/D) 1 mg PO Q2H PRN PRN Reason: Anxiety Last Admin: 11/06/17 15:17 Dose: 1 mg Lorazepam (Ativan Oral Concentrate 1mg/0.5 Ml U/D) 1 mg PO Q1H PRN PRN Reason: Anxiety Last Admin: 11/10/17 09:38 Dose: 1 mg Metoclopramide HCl (Reglan) 10 mg PO TID [facility] Last Admin: 11/03/17 08:29 Dose: Not Given Morphine Sulfate (Ms Contin) 30 mg PO BEDTIME [facility] Last Admin: 11/03/17 01:02 Dose: Not Given Morphine Sulfate (Morphine 10 Mg/0.5 Ml Oral Syringe) 10 mg PO Q2H PRN PRN Reason: Pain Last Admin: 11/06/17 14:45 Dose: 10 mg Morphine Sulfate (Morphine 10 Mg/0.5 Ml Oral Syringe) 10 mg PO Q1H PRN PRN Reason: Pain Morphine Sulfate (Morphine 10 Mg/0.5 Ml Oral Syringe) 10 - 20 mg PO Q1H PRN PRN Reason: Pain Last Admin: 11/10/17 10:20 Dose: 20 mg Check Fentanyl 25mcg (/Hr Patch) 1 each TOP BID [facility] Last Admin: 11/10/17 09:19 Dose: Not Given Granisetron Patch (Check) 1 each TOP DAILY [facility] Last Admin: 11/10/17 09:17 Dose: Not Given (Granisetron [ Sancuso] 3.1 Mg)*Pom * 0 mg TD Tu@1600 [facility] Last Admin: 11/07/17 15:34 Dose: Not Given Check Scopalamine (Patch) 1 each TOP BID [facility] Last Admin: 11/10/17 09:16 Dose: Not Given Nystatin (Nystatin Crm) 0 gm TOP QID PRN PRN Reason: Rash Last Admin: 11/09/17 14:24 Dose: 1 applic Octreotide Acetate (Sandostatin) 100 mcg SUBCUT TID [facility] Last Admin: 11/10/17 10:23 Dose: 100 mcg Ondansetron HCl (Zofran Odt) 4 mg PO ONETIME ONE Stop: 10/30/17 18:39 Last Admin: 10/30/17 18:52 Dose: 4 mg Ondansetron HCl (Zofran Odt) 4 mg PO Q6H PRN PRN Reason: Nausea able to take PO Ondansetron HCl (Zofran) 4 mg IV Q6H PRN PRN Reason: Nausea/Vomiting Last Admin: 10/31/17 05:56 Dose: 4 mg Ondansetron HCl (Zofran Odt) 4 mg PO Q4H PRN PRN Reason: Nausea able to take PO Last Admin: 11/01/17 00:44 Dose: 4 mg Pantoprazole Sodium (Protonix Iv) 40 mg IV ONETIME ONE Stop: 10/30/17 20:50 Last Admin: 10/30/17 21:47 Dose: 40 mg Scopolamine (Transderm-Scop) 1.5 mg TRDERM Q72H PRN PRN Reason: Nausea Last Admin: 11/10/17 09:03 Dose: 1.5 mg Sodium Chloride (Saline Flush) 10 ml FLUSH ASDIRECTED PRN PRN Reason: Keep Vein Open Last Admin: 10/30/17 20:23 Dose: 10 ml *Q Meaningful Use (DIS) - VTE *Q VTE Criteria *Q: - Stroke *Q Stroke Criteria *Q: - AMI *Q AMI Criteria *Q:
[2017-11-11] MEDS ORDERED: [UNRECOGNIZED DRUG - REMARK] TOP SCH (09:00)
[2017-11-14 13:22] VITALS: BP 104/58
== END 2017-11-09 17:30 | disposition hospice, inpatient (51) | DRG 694 ==
LOC: JP.ED 18:28 → JP.MS 20:11 → JP.2SS 11-03 10:35
PROVIDERS: ADMIT Internal Medicine; ATTEND Hospitalist
DX: C7A.8 Other malignant neuroendocrine tumors (principal); C79.51 Secondary malignant neoplasm of bone; C78.7 Secondary malignant neoplasm of liver and intrahepatic bile duct; C78.00 Secondary malignant neoplasm of unspecified lung; R11.2 Nausea with vomiting, unspecified; E86.0 Dehydration; E87.6 Hypokalemia; Z86.718 Personal history of other venous thrombosis and embolism; D64.89 Other specified anemias; J45.909 Unspecified asthma, uncomplicated; M54.9 Dorsalgia, unspecified; Z66 Do not resuscitate; I82.432 Acute embolism and thrombosis of left popliteal vein; G89.3 Neoplasm related pain (acute) (chronic); Z51.5 Encounter for palliative care; R21 Rash and other nonspecific skin eruption; H54.7 Unspecified visual loss; Z88.1 Allergy status to other antibiotic agents
CPT/HCPCS: 36415; 80048; 80053; 83605; 83735; 85025; 85027; 96360; 99285-25; A9270-GY; C9113; J1170; J1650; J2060; J2354; J2405; J3475; J3480; J7040; J7050; J7120

== ENCOUNTER 2017-11-09 17:30 | Inpatient (IN) | payer OTHER ==
[~2017-11-09 17:30] MED LIST: Albuterol 0.083% 2.5 MG/3 ML Neb Soln NEB PRN; Belladonna Alkaloids/Opium 16.2-30 MG Supp RECTAL PRN; Dimethicone 20%/Zinc Oxide 25% 56 GM Spray Bottle TOP PRN; Hydrocortisone 1% Crm 30 GM Tube TOP PRN; Nystatin Crm 15 GM Tube TOP PRN; Ondansetron 4 MG Tab.DIS PO PRN; Scopolamine 1.5 MG Transdermal Patch TRDERM PRN
[2017-11-09] MEDS: Morphine 10 MG/0.5 ML Oral Syringe PO PRN ×2 (19:49→22:00)
[2017-11-09] MEDS: Atropine Sulfate Ophth 2 ML Drops SL PRN ×2 (19:49→23:16)
[2017-11-09] MEDS: OCTREOTIDE 100 MCG/ML SUBCUT SCH (21:05)
[2017-11-10] MEDS: Morphine 10 MG/0.5 ML Oral Syringe PO PRN ×9 (01:25→22:48)
[2017-11-10] MEDS: LORazepam ORAL Concentrate 1MG/0.5ML U/D PO PRN ×3 (09:38→18:27)
[2017-11-10] MEDS: OCTREOTIDE 100 MCG/ML SUBCUT SCH ×4 (10:23→22:49)
--- NOTE | 2017-11-10 12:35 | PCM.HP ---
H&P History of Present Illness - General Date of Service: 11/10/17 Admit Problem/Dx: Source of Information: Family, Old Records History Limitations: Reports: Altered Mental Status - History of Present Illness Initial Comments - Free Text/Narative: Ms. Galan is a 52-year-old woman with known widely metastatic neuroendocrine carcinoma. She has reached a point in her disease were there are no further options for treatment of the carcinoma. She is admitted to hospice inpatient status at this time for ongoing management of symptoms including pain, nausea, and vomiting. She had been admitted as an inpatient because of severe symptoms and during the course of her hospital stay symptoms became fairly well managed. She is receiving sedation but is intermittently more awake and able to converse with family, during the periods the she is awake has reported that she is comfortable. She is currently very lethargic and sedated and unable to provide significant information concerning current symptoms or review of systems. - Related Data Allergies/Adverse Reactions: Allergies Allergy/AdvReac Type Severity Reaction Status Date / Time cephalexin Allergy Swollen Verified 10/30/17 19:04 Tongue ciprofloxacin [From Cipro] Allergy Nausea and Verified 10/30/17 19:04 Vomiting Home Medications: Home Meds Albuterol Sulfate 2.5 mg IH Q6H PRN 07/18/17 [History] Albuterol Sulfate [Proair Hfa] 108 mcg INH Q6H PRN 07/18/17 [History] Enoxaparin [Lovenox] 40 mg SUBCUT Q12HR 10/02/17 [History] Folic Acid 1 mg PO DAILY 10/07/17 [History] Prochlorperazine [Compazine] 5 mg PO Q6H PRN 10/07/17 [History] Granisetron [Sancuso] 3.1 mg TD ASDIRECTED 10/19/17 [History] HYDROmorphone [Dilaudid] 4 mg PO Q4H 10/19/17 [History] LORazepam [Ativan] 0.5 mg PO Q6HR PRN 10/19/17 [History] Metoclopramide HCl 10 mg PO ASDIRECTED 10/22/17 [History] fentaNYL [Duragesic] 25 mcg TRDERM Q72H 10/30/17 [History] Past Medical History - Past Health History Medical/Surgical History: Denies Medical/Surgical History HEENT History: Reports: Epistaxis, Impaired Vision Cardiovascular History: Reports: Blood Clots/VTE/DVT Respiratory History: Reports: Asthma, SOB, Other (See Below) Other Respiratory History: R LUNG CA WITH METS Gastrointestinal History: Reports: Other (See Below) Other Gastrointestinal History: fluid around pancreas 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: Musculoskeletal History: Reports: Back Pain, Chronic, Fracture Neurological History: Reports: Migraines Endocrine/Metabolic History: Reports: Obesity/BMI 30+ Hematologic History: Reports: Other (See Below) Other Hematologic History: LUNG CA WITH METS TO BLOOD, BONE, AND LIVER Immunologic History: Reports: Immunosuppression Oncologic (Cancer) History: Reports: Bone, Liver, Lung, Metastatic Other Oncologic History: WITH METS TO BONES AND BLOOD Dermatologic History: Reports: Other (See Below) Other Dermatologic History: unknown rash on face, patient states, "I did have it on my abdomen too but that went away." - Infectious Disease History Infectious Disease History: Reports: Chicken Pox - Past Surgical History HEENT Surgical History: Reports: Eye Surgery Respiratory Surgical History: Reports: None GI Surgical History: Reports: Colonoscopy, Polypectomy, Other (See Below) Other GI Surgeries/Procedures: Liver biopsy positive for cancer Female Surgical History: Reports: Tubal Ligation Endocrine Surgical History: Reports: None Neurological Surgical History: Reports: None Musculoskeletal Surgical History: Reports: ORIF, Other (See Below) Other Musculoskeletal Surgeries/Procedures:: CA WITH METS TO THE BONES Social & Family History - Family History Family Medical History: Noncontributory - Tobacco Use Smoking Status *Q: Never Smoker Second Hand Smoke Exposure: No - Caffeine Use Caffeine Use: Reports: None - Alcohol Use Days Per Week of Alcohol Use: 0 - Recreational Drug Use Recreational Drug Use: No H&P Review of Systems - Review of Systems: Review Of Systems: Unable To Obtain General: Reports: ROS unobtainable (Secondary to sedation) Exam - Exam Exam: See Below - Vital Signs Weight: 175 lb 15.991 oz - Exam Quality Assessment: Urinary Catheter General: Sedated, Lethargic Lungs: Normal Respiratory Effort, Rhonchi Cardiovascular: Regular Rhythm, Normal S1, Normal S2, Tachycardia GI/Abdominal Exam: Soft, Non-Tender, No Organomegaly, Distended Extremities: Non-Tender, Pedal Edema Skin: Warm, Dry, Rash *Q Meaningful Use (ADM) - VTE *Q VTE Criteria *Q: VTE Pharmacological Contraindications *Q: Not Candidate LT Anticoag - VTE Risk Assess *Q Each Risk Factor Represents 1 Point: Age 41 - 59 years, Swollen Legs, Current, Obesity ( BMI > 25 kg/m2) Total Score 1 Point Risk Factors: 3 Each Risk Factor Represents 2 Points: Malignancy (present or previous) Total Score 2 Point Risk Factors: 2 Each Risk Factor Represents 3 Points: None Total Score 3 Point Risk Factors: 0 Each Risk Factor Represents 5 Points: None Total Score 5 Point Risk Factors: 0 Venous Thromboembolism Risk Factor Score *Q: 5 - Stroke *Q Stroke Criteria *Q: - AMI *Q AMI Criteria *Q: Problem List Initiated/Reviewed/Updated: Yes Orders Last 24hrs: Active Orders 24 hr Category Date Time Status Admission Status [Patient Status] [ADT] Routine ADT 11/09/17 17:30 Active Bedrest Bedside Commode [RC] ASDIRECTED Care 11/09/17 17:30 Active Liz Catheter Insertion [Insert Urinary Catheter] [OM. Care 11/09/17 17:30 Ordered PC] Q24H Oxygen Therapy [RC] ASDIRECTED Care 11/09/17 17:30 Active RT Aerosol Therapy [RC] ASDIRECTED Care 11/10/17 11:24 Active Urinary Catheter Assessment [RC] ASDIRECTED Care 11/10/17 11:03 Active Vital Signs [RC] DAILY Care 11/10/17 11:05 Active Acetaminophen [Tylenol] Med 11/09/17 17:30 Active 650 mg RECTAL Q4H PRN Albuterol [Proventil Neb Soln] Med 11/09/17 17:30 Active 2.5 mg NEB Q6H PRN Atropine Sulfate [Atropine 1%] Med 11/09/17 17:30 Active 0 ml SL Q2H PRN Belladonna/Opium [B & O Supprettes No. 15A] Med 11/09/17 17:30 Active 1 supp RECTAL Q8H PRN Dimethicone/Zinc Oxide [Rash Relief-Zinc Oxide [place]] Med 11/09/17 17:30 Active 0 gm TOP ASDIRECTED PRN Granisetron [Sancuso] Med 11/14/17 16:00 Active 3.1 mg TD Tu@1600 Hydrocortisone [Hydrocortisone 1% Crm] Med 11/09/17 17:30 Active 0 gm TOP ASDIRECTED PRN LORazepam [Ativan ORAL Concentrate 1MG/0.5 ML U/D] Med 11/10/17 11:07 Active 0.5 - 1 mg PO Q1H PRN Morphine [Morphine 10 MG/0.5 ML Oral Syringe] Med 11/09/17 17:30 Active 10 - 20 mg PO Q1H PRN Non-Formulary Medication [NF Drug] Med 11/10/17 21:00 Active 1 each TOP BID Non-Formulary Medication [NF Drug] Med 11/11/17 09:00 Active 1 each TOP DAILY Nystatin [Nystatin Crm] Med 11/09/17 17:30 Active See Dose Instructions TOP QID PRN Octreotide [SandoSTATIN] Med 11/09/17 14:00 Active 100 mcg SUBCUT TID Ondansetron [Zofran ODT] Med 11/09/17 17:30 Active 4 mg PO Q4H PRN Scopolamine [Transderm-Scop] Med 11/09/17 17:30 Active 1.5 mg TRDERM Q72H PRN fentaNYL [Duragesic] Med 11/11/17 21:00 Active 25 mcg TRDERM Q72H Code Status [Resuscitation Status] Routine Resus Stat 11/10/17 11:04 Ordered Medication Orders Acetaminophen (Tylenol) 650 mg RECTAL Q4H PRN PRN Reason: Pain/Fever Albuterol (Proventil Neb Soln) 2.5 mg NEB Q6H PRN PRN Reason: Dyspnea Atropine Sulfate (Atropine 1%) 0 ml SL Q2H PRN PRN Reason: SECRETIONS Belladonna Alkaloids/Opium (B & O Supprettes No. 15a) 1 supp RECTAL Q8H PRN PRN Reason: Spasms Dimethicone/Zinc Oxide (Rash Relief-Zinc Oxide [place]) 0 gm TOP ASDIRECTED PRN PRN Reason: Rash Fentanyl (Duragesic) 25 mcg TRDERM Q72H ANGELLA Hydrocortisone (Hydrocortisone 1% Crm) 0 gm TOP ASDIRECTED PRN PRN Reason: Rash Lorazepam (Ativan Oral Concentrate 1mg/0.5 Ml U/D) 0.5 - 1 mg PO Q1H PRN PRN Reason: Agitation Morphine Sulfate (Morphine 10 Mg/0.5 Ml Oral Syringe) 10 - 20 mg PO Q1H PRN PRN Reason: Pain Granisetron [Sancuso ] 3.1 Mg/24 Hour ( Ptom) 3.1 mg TD Tu@1600 [facility] Check Fentanyl 25mcg (/Hr Patch) 1 each TOP BID ANGELLA Granisetron Patch (Check) 1 each TOP DAILY [place] Nystatin (Nystatin Crm) 0 gm TOP QID PRN PRN Reason: Rash Octreotide Acetate (Sandostatin) 100 mcg SUBCUT TID [place] Ondansetron HCl (Zofran Odt) 4 mg PO Q4H PRN PRN Reason: Nausea/Vomiting Scopolamine (Transderm-Scop) 1.5 mg TRDERM Q72H PRN PRN Reason: Nausea Assessment/Plan Comment:: ASSESSMENT AND PLAN - Stage IV Neuroendocine Cancer - symptoms have been well controlled with current management, on exam today she remains very comfortable, she is required ongoing reassessment and management of medications for comfort. She is imminently dying and I do not expect her to survive more than 6 days from this point. I believe that hospice inpatient management is necessary for ongoing management of symptoms including pain and dermatitis that has developed on her back and legs. She is intermittently been more alert and able to interact with family. -Continue comfort cares -Okay to use octreotide from family supply -Symptomatic management including aggressive pain and anxiety management Intractable nausea with vomiting - she did have one episode of nausea with vomiting earlier today -Symptomatic management Left popliteal DVT - diagnosed approximately one month ago. Family would like to discontinue treatment at this time. -Discontinue enoxaparin Palliative care-patient has requested no further aggressive treatment or interventions Maintenance issues - - DVT prophylaxis - comfort cares - GI prophylaxis - comfort cares - Nutrition - clear liquids Disposition - the patient has entered the dying process and I would anticipate her within the next 6 days.
[2017-11-10] MEDS: CHECK FENTANYL TOP SCH (21:34)
[2017-11-11] MEDS: Morphine 10 MG/0.5 ML Oral Syringe PO PRN ×9 (01:41→23:24)
[2017-11-11] MEDS: LORazepam ORAL Concentrate 1MG/0.5ML U/D PO PRN ×6 (01:51→23:51)
[2017-11-11] MEDS: Atropine Sulfate Ophth 2 ML Drops SL PRN ×2 (01:53→07:47)
--- NOTE | 2017-11-11 10:08 | PCM.PN ---
- General Info Date of Service: 11/11/17 Subjective Update: Nettie has remained fairly stable since yesterday, she was more awake and alert during the day yesterday and able to interact with family somewhat. Since then she is been very sedated with minimal interaction. She is unable to provide significant information at this time concerning symptoms or review of systems. - Patient Data Weight - Most Recent: 175 lb 15.991 oz I&O - Last 24 Hours: Intake & Output 11/10/17 11/11/17 11/11/17 22:59 06:59 14:59 Output Total 200 Balance -200 Med Orders - Current: Current Medications Acetaminophen (Tylenol) 650 mg RECTAL Q4H PRN PRN Reason: Pain/Fever Albuterol (Proventil Neb Soln) 2.5 mg NEB Q6H PRN PRN Reason: Dyspnea Atropine Sulfate (Atropine 1%) 0 ml SL Q2H PRN PRN Reason: SECRETIONS Last Admin: 11/11/17 07:47 Dose: 2 drop Belladonna Alkaloids/Opium (B & O Supprettes No. 15a) 1 supp RECTAL Q8H PRN PRN Reason: Spasms Dimethicone/Zinc Oxide (Rash Relief-Zinc Oxide [place]) 0 gm TOP ASDIRECTED PRN PRN Reason: Rash Fentanyl (Duragesic) 25 mcg TRDERM Q72H ANGELLA Hydrocortisone (Hydrocortisone 1% Crm) 0 gm TOP ASDIRECTED PRN PRN Reason: Rash Lorazepam (Ativan Oral Concentrate 1mg/0.5 Ml U/D) 0.5 - 1 mg PO Q1H PRN PRN Reason: Agitation Last Admin: 11/11/17 07:16 Dose: 1 mg Morphine Sulfate (Morphine 10 Mg/0.5 Ml Oral Syringe) 10 - 20 mg PO Q1H PRN PRN Reason: Pain Last Admin: 11/11/17 07:17 Dose: 20 mg Granisetron [Sancuso ] 3.1 Mg/24 Hour ( Ptom) 3.1 mg TD Tu@1600 [facility] Check Fentanyl 25mcg (/Hr Patch) 1 each TOP BID [facility] Last Admin: 11/10/17 21:34 Dose: Not Given Granisetron Patch (Check) 1 each TOP DAILY ANGELLA Nystatin (Nystatin Crm) 0 gm TOP QID PRN PRN Reason: Rash Octreotide Acetate (Sandostatin) 100 mcg SUBCUT TID [facility] Last Admin: 11/10/17 22:49 Dose: 100 mcg Ondansetron HCl (Zofran Odt) 4 mg PO Q4H PRN PRN Reason: Nausea/Vomiting Scopolamine (Transderm-Scop) 1.5 mg TRDERM Q72H PRN PRN Reason: Nausea Last Admin: 11/10/17 09:03 Dose: 1.5 mg - Exam Quality Assessment: Urine Catheter General: Sedated, Lethargic Lungs: Normal Respiratory Effort, Rhonchi Cardiovascular: Regular Rhythm, No Murmurs, Tachycardia GI/Abdominal Exam: Soft, Non-Tender, No Organomegaly, Distended Extremities: Non-Tender, Pedal Edema Skin: Warm, Dry, Rash - Problem List Review Problem List Initiated/Reviewed/Updated: Yes - My Orders Last 24 Hours: My Active Orders 11/10/17 11:03 Urinary Catheter Assessment [RC] Q12H 11/10/17 11:04 Code Status [Resuscitation Status] Routine 11/10/17 11:05 Vital Signs [RC] DAILY 11/10/17 11:07 LORazepam [Ativan ORAL Concentrate 1MG/0.5 ML U/D] 0.5 - 1 mg PO Q1H PRN 11/10/17 11:24 RT Aerosol Therapy [RC] ASDIRECTED 11/11/17 21:00 fentaNYL [Duragesic] 25 mcg TRDERM Q72H 11/14/17 16:00 Granisetron [Sancuso] 3.1 mg TD Tu@1600 - Plan Plan:: ASSESSMENT AND PLAN - Stage IV Neuroendocine Cancer - symptoms have been well controlled with current management, on exam today she remains very comfortable, she has required ongoing reassessment and management of medications for comfort. She is imminently dying and I do not expect her to survive more than 5 days from this point. I believe that hospice inpatient management is necessary for ongoing management of symptoms including pain and dermatitis that has developed on her back and legs. She is intermittently been more alert and able to interact with family. -Continue comfort cares -Okay to use octreotide from family supply -Symptomatic management including aggressive pain and anxiety management Intractable nausea with vomiting - she did have one episode of nausea with vomiting earlier today -Symptomatic management Left popliteal DVT - diagnosed approximately one month ago. Family would like to discontinue treatment at this time. -Discontinue enoxaparin Palliative care-patient has requested no further aggressive treatment or interventions Maintenance issues - - DVT prophylaxis - comfort cares - GI prophylaxis - comfort cares - Nutrition - clear liquids Disposition - the patient has entered the dying process and I would anticipate her within the next 5 days.
[2017-11-11] MEDS: CHECK FENTANYL TOP SCH ×2 (11:00→20:53)
[2017-11-11] MEDS: OCTREOTIDE 100 MCG/ML SUBCUT SCH ×3 (11:01→20:53)
[2017-11-11] MEDS: Acetaminophen 650 MG Supp RECTAL PRN (11:01)
[2017-11-11] MEDS: [UNRECOGNIZED DRUG - REMARK] TOP SCH (11:06)
[2017-11-11] MEDS: fentaNYL 25 MCG/HR Transdermal Patch TRDERM SCH (20:52)
[2017-11-12] MEDS: LORazepam ORAL Concentrate 1MG/0.5ML U/D PO PRN ×8 (00:57→23:04)
[2017-11-12] MEDS: Morphine 10 MG/0.5 ML Oral Syringe PO PRN ×11 (01:49→22:09)
[2017-11-12] MEDS: OCTREOTIDE 100 MCG/ML SUBCUT SCH ×3 (09:14→20:12)
[2017-11-12] MEDS: [UNRECOGNIZED DRUG - REMARK] TOP SCH (09:15)
[2017-11-12] MEDS: CHECK FENTANYL TOP SCH ×2 (09:15→20:09)
--- NOTE | 2017-11-12 11:44 | PCM.PN ---
- General Info Date of Service: 11/12/17 Subjective Update: Nettie has been stable since yesterday, current medications as ordered seem to be keeping her very comfortable. Recurrent temperature elevation to 103 over the past 24 hours with decreased blood pressure and tachycardia. She is very sedated and unable to provide significant information concerning symptoms or review of systems - Review of Systems General: Reports: Fever - Patient Data Vitals - Most Recent: Last Vital Signs Temp 99.9 F 11/12/17 10:39 Pulse 112 H 11/12/17 10:39 Resp 14 11/12/17 10:39 BP 98/66 11/12/17 10:39 Pulse Ox 77 L 11/12/17 10:39 Weight - Most Recent: 175 lb 15.991 oz I&O - Last 24 Hours: Intake & Output 11/11/17 11/12/17 11/12/17 22:59 06:59 14:59 Output Total 150 350 Balance -150 -350 Med Orders - Current: Current Medications Acetaminophen (Tylenol) 650 mg RECTAL Q4H PRN PRN Reason: Pain/Fever Last Admin: 11/11/17 11:01 Dose: 650 mg Albuterol (Proventil Neb Soln) 2.5 mg NEB Q6H PRN PRN Reason: Dyspnea Atropine Sulfate (Atropine 1%) 0 ml SL Q2H PRN PRN Reason: SECRETIONS Last Admin: 11/11/17 07:47 Dose: 2 drop Belladonna Alkaloids/Opium (B & O Supprettes No. 15a) 1 supp RECTAL Q8H PRN PRN Reason: Spasms Dimethicone/Zinc Oxide (Rash Relief-Zinc Oxide [place]) 0 gm TOP ASDIRECTED PRN PRN Reason: Rash Fentanyl (Duragesic) 25 mcg TRDERM Q72H ANGELLA Last Admin: 11/11/17 20:52 Dose: 25 mcg Hydrocortisone (Hydrocortisone 1% Crm) 0 gm TOP ASDIRECTED PRN PRN Reason: Rash Lorazepam (Ativan Oral Concentrate 1mg/0.5 Ml U/D) 0.5 - 1 mg PO Q1H PRN PRN Reason: Agitation Last Admin: 11/12/17 10:52 Dose: 1 mg Morphine Sulfate (Morphine 10 Mg/0.5 Ml Oral Syringe) 10 - 20 mg PO Q1H PRN PRN Reason: Pain Last Admin: 11/12/17 11:24 Dose: 10 mg Granisetron [Sancuso ] 3.1 Mg/24 Hour ( Ptom) 3.1 mg TD Tu@1600 [facility] Check Fentanyl 25mcg (/Hr Patch) 1 each TOP BID [facility] Last Admin: 11/12/17 09:15 Dose: Not Given Granisetron Patch (Check) 1 each TOP DAILY [facility] Last Admin: 11/12/17 09:15 Dose: Not Given Nystatin (Nystatin Crm) 0 gm TOP QID PRN PRN Reason: Rash Octreotide Acetate (Sandostatin) 100 mcg SUBCUT TID [facility] Last Admin: 11/12/17 09:14 Dose: 100 mcg Ondansetron HCl (Zofran Odt) 4 mg PO Q4H PRN PRN Reason: Nausea/Vomiting Scopolamine (Transderm-Scop) 1.5 mg TRDERM Q72H PRN PRN Reason: Nausea Last Admin: 11/10/17 09:03 Dose: 1.5 mg - Exam Quality Assessment: Urine Catheter General: Sedated, Lethargic Lungs: Clear to Auscultation, Normal Respiratory Effort Cardiovascular: Regular Rhythm, No Murmurs, Tachycardia GI/Abdominal Exam: Soft, Non-Tender, No Organomegaly, Distended Extremities: Non-Tender, Pedal Edema Skin: Warm, Dry - Problem List Review Problem List Initiated/Reviewed/Updated: Yes - My Orders Last 24 Hours: My Active Orders 11/11/17 21:00 fentaNYL [Duragesic] 25 mcg TRDERM Q72H 11/14/17 16:00 Granisetron [Sancuso] 3.1 mg TD Tu@1600 - Plan Plan:: ASSESSMENT AND PLAN - Stage IV Neuroendocine Cancer - symptoms have been well controlled with current management, she has developed fever, and appears to be developing sepsis with tachycardia and hypotension. -Continue comfort cares -Okay to use octreotide from family supply -Symptomatic management including aggressive pain and anxiety management Intractable nausea with vomiting - resolved -Symptomatic management Left popliteal DVT - diagnosed approximately one month ago. Family would like to discontinue treatment at this time. -Discontinue enoxaparin Palliative care-patient has requested no further aggressive treatment or interventions Maintenance issues - - DVT prophylaxis - comfort cares - GI prophylaxis - comfort cares - Nutrition - clear liquids Disposition - the patient has entered the dying process and I would anticipate her within the next 4 days.
[2017-11-12] MEDS: Atropine Sulfate Ophth 2 ML Drops SL PRN ×2 (14:07→19:36)
[2017-11-12] MEDS: Acetaminophen 650 MG Supp RECTAL PRN (22:38)
[2017-11-13] MEDS: Morphine 10 MG/0.5 ML Oral Syringe PO PRN ×12 (00:02→22:35)
[2017-11-13] MEDS: Atropine Sulfate Ophth 2 ML Drops SL PRN ×5 (04:16→23:22)
[2017-11-13] MEDS: LORazepam ORAL Concentrate 1MG/0.5ML U/D PO PRN ×6 (04:20→23:22)
[2017-11-13] MEDS: CHECK FENTANYL TOP SCH ×2 (09:38→20:33)
[2017-11-13] MEDS: OCTREOTIDE 100 MCG/ML SUBCUT SCH ×3 (09:46→20:30)
--- NOTE | 2017-11-13 10:50 | PCM.PN ---
- General Info Date of Service: 11/13/17 Functional Status: Reports: Pain Controlled. Denies: Ambulating - Review of Systems General: Reports: Fever, Weakness Systems Review Comment:: No significant change in the past 24 hours. She has been febrile much of the night. Mildly tachycardic and resting fairly comfortably per report from her . She does not participate in review of systems today because she is very lethargic. 10 mg of morphine does not seem to hold her over for the whole hour like 20 mg has. Regular lorazepam use seems to help improve her anxiety and agitation. - Patient Data Vitals - Most Recent: Last Vital Signs Temp 38.8 C H 11/13/17 08:31 Pulse 128 H 11/13/17 08:31 Resp 12 11/13/17 08:31 BP 95/53 L 11/13/17 08:31 Pulse Ox 90 L 11/13/17 08:31 Weight - Most Recent: 79.832 kg I&O - Last 24 Hours: Intake & Output 11/12/17 11/13/17 11/13/17 22:59 06:59 14:59 Output Total 825 250 Balance -825 -250 Med Orders - Current: Current Medications Acetaminophen (Tylenol) 650 mg RECTAL Q4H PRN PRN Reason: Pain/Fever Last Admin: 11/12/17 22:38 Dose: 650 mg Albuterol (Proventil Neb Soln) 2.5 mg NEB Q6H PRN PRN Reason: Dyspnea Atropine Sulfate (Atropine 1%) 0 ml SL Q2H PRN PRN Reason: SECRETIONS Last Admin: 11/13/17 04:16 Dose: 2 drop Belladonna Alkaloids/Opium (B & O Supprettes No. 15a) 1 supp RECTAL Q8H PRN PRN Reason: Spasms Dimethicone/Zinc Oxide (Rash Relief-Zinc Oxide [place]) 0 gm TOP ASDIRECTED PRN PRN Reason: Rash Fentanyl (Duragesic) 25 mcg TRDERM Q72H ANGELLA Last Admin: 11/11/17 20:52 Dose: 25 mcg Hydrocortisone (Hydrocortisone 1% Crm) 0 gm TOP ASDIRECTED PRN PRN Reason: Rash Lorazepam (Ativan Oral Concentrate 1mg/0.5 Ml U/D) 0.5 - 1 mg PO Q1H PRN PRN Reason: Agitation Last Admin: 11/13/17 09:36 Dose: 1 mg Morphine Sulfate (Morphine 10 Mg/0.5 Ml Oral Syringe) 10 - 20 mg PO Q1H PRN PRN Reason: Pain Last Admin: 11/13/17 10:39 Dose: 20 mg Check Fentanyl 25mcg (/Hr Patch) 1 each TOP BID [facility] Last Admin: 11/13/17 09:38 Dose: Not Given Nystatin (Nystatin Crm) 0 gm TOP QID PRN PRN Reason: Rash Octreotide Acetate (Sandostatin) 100 mcg SUBCUT TID [facility] Last Admin: 11/13/17 09:46 Dose: 100 mcg Ondansetron HCl (Zofran Odt) 4 mg PO Q4H PRN PRN Reason: Nausea/Vomiting Scopolamine (Transderm-Scop) 1.5 mg TRDERM Q72H PRN PRN Reason: Nausea Last Admin: 11/10/17 09:03 Dose: 1.5 mg Discontinued Medications Granisetron [Sancuso ] 3.1 Mg/24 Hour ( Ptom) 3.1 mg TD Tu@1600 [facility] Granisetron Patch (Check) 1 each TOP DAILY [facility] Last Admin: 11/12/17 09:15 Dose: Not Given - Exam Quality Assessment: Supplemental Oxygen General: No Acute Distress. No: Alert Lungs: Normal Respiratory Effort Extremities: No Pedal Edema Psy/Mental Status: No: Alert, Anxious, Agitated - Problem List Review Problem List Initiated/Reviewed/Updated: Yes - Plan Plan:: ASSESSMENT AND PLAN - Stage IV Neuroendocine Cancer - symptoms have been well controlled with current management, she remains febrile and continues to display signs of sepsis with tachycardia and borderline hypotension. -Continue comfort cares -Okay to use octreotide from family supply -Symptomatic management including aggressive pain and anxiety management Intractable nausea with vomiting - resolved -Symptomatic management Left popliteal DVT - diagnosed approximately one month ago. Treatment discontinued per family's request. Palliative care - patient has requested no further aggressive treatment or interventions Maintenance issues - - DVT prophylaxis - comfort cares - GI prophylaxis - comfort cares - Nutrition - clear liquids Disposition - the patient has entered the dying process and I would anticipate her within the next 3 days.
--- NOTE | 2017-11-13 13:13 | PN ---
DATE OF SERVICE: 11/10/2017 CERTIFICATION OF TERMINAL ILLNESS I certification that Nettie Galan is a terminally ill with a life expectancy of 6 months or less if the terminal illness runs its normal course. Certification period dates are November 09, 2017 to February 06, 2018. Ms. Galan has a primary hospice diagnosis of end-stage neuroendocrine tumor with known metastatic disease to chest, liver, and bones. Ms. Galan had received active chemotherapy until about a month prior to admission. At that time, her symptoms worsened with increased discomfort and inability to tolerate treatment. Over the last month, has had increased pain and intractable nausea and vomiting. She was admitted to the hospital on October 30, 2017, for dehydration, anemia and hypokalemia. During the hospitalization, continued to decline further and then requested comfort cares only and hospice admission. She is very appropriate for hospice services and will be certified for hospice care for the dates as outlined above. Anthony Johnson MD /[id number]
[2017-11-13] MEDS: [UNRECOGNIZED DRUG - REMARK] TOP SCH (20:43)
[2017-11-14] MEDS: Morphine 10 MG/0.5 ML Oral Syringe PO PRN ×10 (00:03→21:53)
[2017-11-14] MEDS: Atropine Sulfate Ophth 2 ML Drops SL PRN ×3 (05:22→20:54)
[2017-11-14] MEDS: OCTREOTIDE 100 MCG/ML SUBCUT SCH ×3 (08:41→21:53)
[2017-11-14] MEDS: Acetaminophen 650 MG Supp RECTAL PRN ×2 (09:44→16:29)
[2017-11-14] MEDS: CHECK FENTANYL TOP SCH ×2 (09:45→22:00)
--- NOTE | 2017-11-14 11:27 | PCM.PN ---
- General Info Date of Service: 11/14/17 Functional Status: Reports: Pain Controlled. Denies: Ambulating - Review of Systems General: Reports: Fever Systems Review Comment:: No acute events overnight. Patient is obtunded and does not participate in any conversation. She appears to have Mike-Lacy breathing at this time. Blood pressure has been decreasing and heart rate has been increasing. is happy with pain control at this point. - Patient Data Vitals - Most Recent: Last Vital Signs Temp 39.5 C H 11/14/17 08:47 Pulse 126 H 11/14/17 08:47 Resp 22 H 11/14/17 08:47 BP 109/56 L 11/14/17 08:47 Pulse Ox 87 L 11/14/17 08:47 Weight - Most Recent: 79.832 kg I&O - Last 24 Hours: Intake & Output 11/13/17 11/14/17 11/14/17 22:59 06:59 14:59 Output Total 200 250 Balance -200 -250 Med Orders - Current: Current Medications Acetaminophen (Tylenol) 650 mg RECTAL Q4H PRN PRN Reason: Pain/Fever Last Admin: 11/14/17 09:44 Dose: 650 mg Albuterol (Proventil Neb Soln) 2.5 mg NEB Q6H PRN PRN Reason: Dyspnea Atropine Sulfate (Atropine 1%) 0 ml SL Q2H PRN PRN Reason: SECRETIONS Last Admin: 11/14/17 08:42 Dose: 2 drop Belladonna Alkaloids/Opium (B & O Supprettes No. 15a) 1 supp RECTAL Q8H PRN PRN Reason: Spasms Dimethicone/Zinc Oxide (Rash Relief-Zinc Oxide [place]) 0 gm TOP ASDIRECTED PRN PRN Reason: Rash Fentanyl (Duragesic) 25 mcg TRDERM Q72H [facility] Last Admin: 11/11/17 20:52 Dose: 25 mcg Hydrocortisone (Hydrocortisone 1% Crm) 0 gm TOP ASDIRECTED PRN PRN Reason: Rash Lorazepam (Ativan Oral Concentrate 1mg/0.5 Ml U/D) 0.5 - 1 mg PO Q1H PRN PRN Reason: Agitation Last Admin: 11/13/17 23:22 Dose: 1 mg Morphine Sulfate (Morphine 10 Mg/0.5 Ml Oral Syringe) 10 - 20 mg PO Q1H PRN PRN Reason: Pain Last Admin: 11/14/17 08:41 Dose: 20 mg Check Fentanyl 25mcg (/Hr Patch) 1 each TOP BID [facility] Last Admin: 11/14/17 09:45 Dose: Not Given Nystatin (Nystatin Crm) 0 gm TOP QID PRN PRN Reason: Rash Octreotide Acetate (Sandostatin) 100 mcg SUBCUT TID [facility] Last Admin: 11/14/17 08:41 Dose: 100 mcg Ondansetron HCl (Zofran Odt) 4 mg PO Q4H PRN PRN Reason: Nausea/Vomiting Scopolamine (Transderm-Scop) 1.5 mg TRDERM Q72H PRN PRN Reason: Nausea Last Admin: 11/10/17 09:03 Dose: 1.5 mg Discontinued Medications Granisetron [Sancuso ] 3.1 Mg/24 Hour ( Ptom) 3.1 mg TD Tu@1600 [facility] Granisetron Patch (Check) 1 each TOP DAILY [facility] Last Admin: 11/13/17 20:43 Dose: Not Given - Exam Quality Assessment: No: Supplemental Oxygen General: No Acute Distress, Obtunded. No: Alert Lungs: Normal Respiratory Effort, Decreased Breath Sounds (both bases) Cardiovascular: Regular Rhythm, Tachycardia Extremities: Pedal Edema Psy/Mental Status: No: Alert, Anxious, Agitated - Problem List Review Problem List Initiated/Reviewed/Updated: Yes - Plan Plan:: ASSESSMENT AND PLAN - Stage IV Neuroendocine Cancer - symptoms have been well controlled with current management. She appears to be actively dying at this time with Mike-Lacy respirations. Progressive hypotension and increasing tachycardia. -Continue comfort cares -Okay to use octreotide from family supply -Symptomatic management including aggressive pain and anxiety management Intractable nausea with vomiting - resolved -Symptomatic management Left popliteal DVT - diagnosed approximately one month ago. Treatment discontinued per family's request. Palliative care - patient has requested no further aggressive treatment or interventions Maintenance issues - - DVT prophylaxis - comfort cares - GI prophylaxis - comfort cares - Nutrition - clear liquids Disposition - the patient has entered the dying process and I would anticipate her within the next 2 days. Liam Dangelo MD
[2017-11-14] MEDS: LORazepam ORAL Concentrate 1MG/0.5ML U/D PO PRN ×2 (11:45→19:49)
[2017-11-14] MEDS ORDERED: GRANISETRON TD SCH (16:00)
[2017-11-14] MEDS: fentaNYL 25 MCG/HR Transdermal Patch TRDERM SCH (21:59)
[2017-11-15] MEDS: Morphine 10 MG/0.5 ML Oral Syringe PO PRN ×9 (01:16→21:41)
[2017-11-15] MEDS: LORazepam ORAL Concentrate 1MG/0.5ML U/D PO PRN ×3 (01:57→22:35)
[2017-11-15] MEDS: Acetaminophen 650 MG Supp RECTAL PRN ×4 (03:05→23:11)
[2017-11-15] MEDS: Atropine Sulfate Ophth 2 ML Drops SL PRN ×4 (07:08→23:10)
[2017-11-15] MEDS: OCTREOTIDE 100 MCG/ML SUBCUT SCH ×3 (09:11→21:41)
[2017-11-15] MEDS: CHECK FENTANYL TOP SCH ×2 (09:47→21:37)
--- NOTE | 2017-11-15 10:29 | PCM.PN ---
- General Info Date of Service: 11/15/17 Functional Status: Reports: Pain Controlled - Review of Systems General: Reports: Fever Systems Review Comment:: Patient was fairly comfortable per report overnight. She continues to be febrile. She remains obtunded and does not communicate. Her family is happy with the level of comfort that has been maintained. She continues to display Mike-Lacy breathing pattern. No evidence for mottling this time. - Patient Data Vitals - Most Recent: Last Vital Signs Temp 39.7 C H 11/15/17 09:19 Pulse 146 H 11/15/17 09:19 Resp 15 11/15/17 09:19 BP 92/49 L 11/15/17 09:19 Pulse Ox 65 L 11/15/17 09:19 Weight - Most Recent: 79.832 kg I&O - Last 24 Hours: Intake & Output 11/14/17 11/15/17 11/15/17 22:59 06:59 14:59 Output Total 450 150 Balance -450 -150 Med Orders - Current: Current Medications Acetaminophen (Tylenol) 650 mg RECTAL Q4H PRN PRN Reason: Pain/Fever Last Admin: 11/15/17 09:17 Dose: 650 mg Albuterol (Proventil Neb Soln) 2.5 mg NEB Q6H PRN PRN Reason: Dyspnea Atropine Sulfate (Atropine 1%) 0 ml SL Q2H PRN PRN Reason: SECRETIONS Last Admin: 11/15/17 07:08 Dose: 2 drop Belladonna Alkaloids/Opium (B & O Supprettes No. 15a) 1 supp RECTAL Q8H PRN PRN Reason: Spasms Dimethicone/Zinc Oxide (Rash Relief-Zinc Oxide [employer]) 0 gm TOP ASDIRECTED PRN PRN Reason: Rash Fentanyl (Duragesic) 25 mcg TRDERM Q72H [facility] Last Admin: 11/14/17 21:59 Dose: 25 mcg Hydrocortisone (Hydrocortisone 1% Crm) 0 gm TOP ASDIRECTED PRN PRN Reason: Rash Lorazepam (Ativan Oral Concentrate 1mg/0.5 Ml U/D) 0.5 - 1 mg PO Q1H PRN PRN Reason: Agitation Last Admin: 11/15/17 09:08 Dose: 1 mg Morphine Sulfate (Morphine 10 Mg/0.5 Ml Oral Syringe) 10 - 20 mg PO Q1H PRN PRN Reason: Pain Last Admin: 11/15/17 08:04 Dose: 20 mg Check Fentanyl 25mcg (/Hr Patch) 1 each TOP BID [facility] Last Admin: 11/15/17 09:47 Dose: Not Given Nystatin (Nystatin Crm) 0 gm TOP QID PRN PRN Reason: Rash Octreotide Acetate (Sandostatin) 100 mcg SUBCUT TID [facility] Last Admin: 11/15/17 09:11 Dose: 100 mcg Ondansetron HCl (Zofran Odt) 4 mg PO Q4H PRN PRN Reason: Nausea/Vomiting Scopolamine (Transderm-Scop) 1.5 mg TRDERM Q72H PRN PRN Reason: Nausea Last Admin: 11/10/17 09:03 Dose: 1.5 mg Discontinued Medications Granisetron [Sancuso ] 3.1 Mg/24 Hour ( Ptom) 3.1 mg TD Tu@1600 [facility] Granisetron Patch (Check) 1 each TOP DAILY [facility] Last Admin: 11/13/17 20:43 Dose: Not Given - Exam Quality Assessment: No: Supplemental Oxygen General: No Acute Distress, Obtunded. No: Alert Lungs: No: Normal Respiratory Effort (increased work of breathing ) Cardiovascular: Regular Rhythm, Tachycardia GI/Abdominal Exam: Distended Extremities: No Pedal Edema Psy/Mental Status: No: Alert, Agitated - Problem List Review Problem List Initiated/Reviewed/Updated: Yes - Plan Plan:: ASSESSMENT AND PLAN - Stage IV Neuroendocine Cancer - symptoms have been well controlled with current management. She appears to be actively dying at this time with Mike-Lacy respirations. Progressive hypotension and increasing tachycardia. She is also hypoxic with oxygen saturations in the 60s. -Continue comfort cares -Okay to use octreotide from family supply -Symptomatic management including aggressive pain and anxiety management Palliative care - patient has requested no further aggressive treatment or interventions Maintenance issues - - DVT prophylaxis - comfort cares - GI prophylaxis - comfort cares - Nutrition - clear liquids Disposition - the patient has entered the dying process and I would anticipate her within the next few hours and very likely within the next 2 days. Liam Dangelo MD
[2017-11-16] MEDS: Morphine 10 MG/0.5 ML Oral Syringe PO PRN ×9 (00:07→16:15)
[2017-11-16] MEDS: Acetaminophen 650 MG Supp RECTAL PRN (06:11)
[2017-11-16] MEDS: Atropine Sulfate Ophth 2 ML Drops SL PRN (06:22)
[2017-11-16] MEDS: LORazepam ORAL Concentrate 1MG/0.5ML U/D PO PRN ×2 (08:10→17:11)
[2017-11-16] MEDS: CHECK FENTANYL TOP SCH (09:29)
[2017-11-16] MEDS: OCTREOTIDE 100 MCG/ML SUBCUT SCH ×2 (10:05→16:36)
[2017-11-16 10:22] VITALS: BP 78/46
--- NOTE | 2017-11-16 15:59 | PCM.PN ---
- General Info Date of Service: 11/16/17 Functional Status: Reports: Pain Controlled - Review of Systems General: Reports: Fever Systems Review Comment:: Patient has remained obtunded. She has been febrile when vital signs are checked and had a significant fever this morning. She continues to exhibit Mike-Lacy type breathing. She appears cyanotic. She appears to be comfortable. Her sister and mother brought up the idea of a feeding tube with concerns that she is starving to in her current situation. We had a long discussion that included Nettie's [place]. I expressed my opinion that Nettie is in the dying process and that attempting to place a feeding tube would cause significant discomfort and would not provide any benefit at this time. They seemed reassured with our current plan after the discussion. - Patient Data Vitals - Most Recent: Last Vital Signs Temp 38.8 C H 11/16/17 10:00 Pulse 138 H 11/16/17 10:00 Resp 14 11/16/17 10:00 BP 78/46 L 11/16/17 10:00 Pulse Ox 69 L 11/16/17 10:00 Weight - Most Recent: 79.832 kg I&O - Last 24 Hours: Intake & Output 11/16/17 11/16/17 11/16/17 06:59 14:59 22:59 Output Total 200 Balance -200 Med Orders - Current: Current Medications Acetaminophen (Tylenol) 650 mg RECTAL Q4H PRN PRN Reason: Pain/Fever Last Admin: 11/16/17 06:11 Dose: 650 mg Albuterol (Proventil Neb Soln) 2.5 mg NEB Q6H PRN PRN Reason: Dyspnea Atropine Sulfate (Atropine 1%) 0 ml SL Q2H PRN PRN Reason: SECRETIONS Last Admin: 11/16/17 06:22 Dose: 2 drop Belladonna Alkaloids/Opium (B & O Supprettes No. 15a) 1 supp RECTAL Q8H PRN PRN Reason: Spasms Dimethicone/Zinc Oxide (Rash Relief-Zinc Oxide [place]) 0 gm TOP ASDIRECTED PRN PRN Reason: Rash Fentanyl (Duragesic) 25 mcg TRDERM Q72H [facility] Last Admin: 11/14/17 21:59 Dose: 25 mcg Hydrocortisone (Hydrocortisone 1% Crm) 0 gm TOP ASDIRECTED PRN PRN Reason: Rash Lorazepam (Ativan Oral Concentrate 1mg/0.5 Ml U/D) 0.5 - 1 mg PO Q1H PRN PRN Reason: Agitation Last Admin: 11/16/17 08:10 Dose: 1 mg Morphine Sulfate (Morphine 10 Mg/0.5 Ml Oral Syringe) 10 - 20 mg PO Q1H PRN PRN Reason: Pain Last Admin: 11/16/17 14:08 Dose: 20 mg Check Fentanyl 25mcg (/Hr Patch) 1 each TOP BID [facility] Last Admin: 11/16/17 09:29 Dose: Not Given Nystatin (Nystatin Crm) 0 gm TOP QID PRN PRN Reason: Rash Octreotide Acetate (Sandostatin) 100 mcg SUBCUT TID [facility] Last Admin: 11/16/17 10:05 Dose: 100 mcg Ondansetron HCl (Zofran Odt) 4 mg PO Q4H PRN PRN Reason: Nausea/Vomiting Scopolamine (Transderm-Scop) 1.5 mg TRDERM Q72H PRN PRN Reason: Nausea Last Admin: 11/10/17 09:03 Dose: 1.5 mg Discontinued Medications Granisetron [Sancuso ] 3.1 Mg/24 Hour ( Ptom) 3.1 mg TD Tu@1600 [facility] Granisetron Patch (Check) 1 each TOP DAILY [facility] Last Admin: 11/13/17 20:43 Dose: Not Given - Exam Quality Assessment: No: Supplemental Oxygen General: No Acute Distress, Obtunded. No: Alert Lungs: No: Normal Respiratory Effort (Mike-Lacy respirations) Cardiovascular: Regular Rhythm, Tachycardia Extremities: No Pedal Edema Psy/Mental Status: No: Alert, Agitated - Problem List Review Problem List Initiated/Reviewed/Updated: Yes - Plan Plan:: ASSESSMENT AND PLAN - Stage IV Neuroendocine Cancer - symptoms have been well controlled with current management. She is actively dying at this time with persistent Mike-Lacy respirations. She remains hypoxic and appears cyanotic today. I am quite surprised that she survived the night but still anticipate that her time is limited to hours at this point. -Continue comfort cares -Symptomatic management including aggressive pain and anxiety management Palliative care - patient has requested no further aggressive treatment or interventions Maintenance issues - - DVT prophylaxis - comfort cares - GI prophylaxis - comfort cares - Nutrition - not able to take in any liquids or pills. Disposition - the patient has entered the dying process and I would anticipate her within the next few hours or at most a day or 2. Liam Dangelo MD
--- NOTE | 2017-11-17 14:02 | PCM.DCSUM1 ---
Discharge Summary - Hospital Course Brief History: 52-year-old female with metastatic neuroendocrine cancer who had been admitted for symptomatic management and end-of-life care and was transitioned to inpatient hospice care - Discharge Data Discharge Date: 11/16/17 Discharge Disposition: 20 Preliminary Cause of *Q: Other_Special Instruction (Metastatic neuroendocrine cancer) Condition: - Discharge Diagnosis/Problem(s) (1) Neuroendocrine carcinoma metastatic to multiple sites SNOMED Code(s): 810355364 ICD Code: C7A.8 - OTHER MALIGNANT NEUROENDOCRINE TUMORS; C7B.8 - OTHER SECONDARY NEUROENDOCRINE TUMORS Status: Chronic - Patient Summary/Data Hospital Course: Nettie was admitted to inpatient hospice care after a recent hospital stay for symptomatically management setting of metastatic neuroendocrine cancer. She had reached the end stage of her disease and there were no available treatment options for the transition to comfort cares and then to hospice was made. During her week of hospice care in the hospital she remained comfortable. We utilized pain and antianxiety medications with good effect. She was visited regularly by the hospice team as well as our hospital implementation director. She slowly declined over the week with progressive fever, tachycardia and hypotension as well as hypoxia. She passed peacefully with family by her side on the evening of November 16. No attempts at resuscitation were made per her previously discussed wishes. - Discharge Plan Home Medications: Home Meds Albuterol Sulfate 2.5 mg IH Q6H PRN 07/18/17 [History] Albuterol Sulfate [Proair Hfa] 108 mcg INH Q6H PRN 07/18/17 [History] Enoxaparin [Lovenox] 40 mg SUBCUT Q12HR 10/02/17 [History] Folic Acid 1 mg PO DAILY 10/07/17 [History] Prochlorperazine [Compazine] 5 mg PO Q6H PRN 10/07/17 [History] Granisetron [Sancuso] 3.1 mg TD ASDIRECTED 10/19/17 [History] HYDROmorphone [Dilaudid] 4 mg PO Q4H 10/19/17 [History] LORazepam [Ativan] 0.5 mg PO Q6HR PRN 10/19/17 [History] Metoclopramide HCl 10 mg PO ASDIRECTED 10/22/17 [History] fentaNYL [Duragesic] 25 mcg TRDERM Q72H 10/30/17 [History] - Discharge Summary/Plan Comment DC Time >30 min.: No (20) - Patient Data Vitals - Most Recent: Last Vital Signs Temp 38.8 C H 11/16/17 10:00 Pulse 138 H 11/16/17 10:00 Resp 14 11/16/17 10:00 BP 78/46 L 11/16/17 10:00 Pulse Ox 69 L 11/16/17 10:00 Weight - Most Recent: 79.832 kg Med Orders - Current: Current Medications Discontinued Medications Acetaminophen (Tylenol) 650 mg RECTAL Q4H PRN PRN Reason: Pain/Fever Last Admin: 11/16/17 06:11 Dose: 650 mg Albuterol (Proventil Neb Soln) 2.5 mg NEB Q6H PRN PRN Reason: Dyspnea Atropine Sulfate (Atropine 1%) 0 ml SL Q2H PRN PRN Reason: SECRETIONS Last Admin: 11/16/17 06:22 Dose: 2 drop Belladonna Alkaloids/Opium (B & O Supprettes No. 15a) 1 supp RECTAL Q8H PRN PRN Reason: Spasms Dimethicone/Zinc Oxide (Rash Relief-Zinc Oxide [place]) 0 gm TOP ASDIRECTED PRN PRN Reason: Rash Fentanyl (Duragesic) 25 mcg TRDERM Q72H ANGELLA Last Admin: 11/14/17 21:59 Dose: 25 mcg Hydrocortisone (Hydrocortisone 1% Crm) 0 gm TOP ASDIRECTED PRN PRN Reason: Rash Lorazepam (Ativan Oral Concentrate 1mg/0.5 Ml U/D) 0.5 - 1 mg PO Q1H PRN PRN Reason: Agitation Last Admin: 11/16/17 17:11 Dose: 1 mg Morphine Sulfate (Morphine 10 Mg/0.5 Ml Oral Syringe) 10 - 20 mg PO Q1H PRN PRN Reason: Pain Last Admin: 11/16/17 16:15 Dose: 10 mg Granisetron [Sancuso ] 3.1 Mg/24 Hour ( Ptom) 3.1 mg TD Tu@1600 [facility] Check Fentanyl 25mcg (/Hr Patch) 1 each TOP BID [facility] Last Admin: 11/16/17 09:29 Dose: Not Given Granisetron Patch (Check) 1 each TOP DAILY [facility] Last Admin: 11/13/17 20:43 Dose: Not Given Nystatin (Nystatin Crm) 0 gm TOP QID PRN PRN Reason: Rash Octreotide Acetate (Sandostatin) 100 mcg SUBCUT TID [facility] Last Admin: 11/16/17 16:36 Dose: 100 mcg Ondansetron HCl (Zofran Odt) 4 mg PO Q4H PRN PRN Reason: Nausea/Vomiting Scopolamine (Transderm-Scop) 1.5 mg TRDERM Q72H PRN PRN Reason: Nausea Last Admin: 11/10/17 09:03 Dose: 1.5 mg *Q Meaningful Use (DIS) - VTE *Q VTE Criteria *Q: VTE Pharmacological Contraindications *Q: Not Candidate LT Anticoag - Stroke *Q Stroke Criteria *Q: - AMI *Q AMI Criteria *Q:
== END 2017-11-16 18:05 | disposition expired | DRG 844 ==
LOC: EEVIPCON 17:30 → JP.2SS 17:30
PROVIDERS: ADMIT Hospitalist; ATTEND Hospitalist
DX: C7B.8 Other secondary neuroendocrine tumors (principal); C34.91 Malignant neoplasm of unspecified part of right bronchus or lung; C79.51 Secondary malignant neoplasm of bone; C78.7 Secondary malignant neoplasm of liver and intrahepatic bile duct; R00.0 Tachycardia, unspecified; I95.9 Hypotension, unspecified; R09.02 Hypoxemia; R11.2 Nausea with vomiting, unspecified; Z86.718 Personal history of other venous thrombosis and embolism; Z51.5 Encounter for palliative care; Z79.899 Other long term (current) drug therapy; Z88.8 Allergy status to other drugs, medicaments and biological substances
CPT/HCPCS: 36415; 86803; 87340; 87449; A9270-GY; J2354